=== PATIENT | female | born 1975 | race Caucasian/White ===

== ENCOUNTER 2016-07-11 10:00 | Emergency (ER) | payer OTHER ==
[2016-07-11] MEDS ORDERED: Ondansetron 4 MG/2 ML SDV IVPUSH ONE (10:20)
[2016-07-11] MEDS ORDERED: Sodium Chloride 0.9% 1,000 ML IV ONE (10:20)
[2016-07-11 10:58] LABS: CHLORIDE,CL 107 mmol/L (98-110); SODIUM,NA 137 mmol/L (136-146)
[2016-07-11] MEDS ORDERED: Prochlorperazine 10 MG/2 ML SDV IVPUSH ONE (12:34)
--- NOTE | 2016-07-11 13:31 | CT ---
CT of the abdomen and pelvis without contrast. HISTORY: Pain TECHNIQUE: Axial CT images were obtained of the abdomen and pelvis without contrast. Coronal and sag ittal reconstructions obtained. FINDINGS: The lung bases are clear, no pleural effusion. The liver, spleen, adrenal glands, and pancreas appear unremarkable for noncontrast examination. Cho lecystectomy. There is no bulky retroperitoneal lymphadenopathy. No abdominal ascites. Punctate nonobstructing left renal stones noted. No evidence of obstructive uropathy bilaterally. The large and small bowel are normal in caliber without evidence of obstruction. Appendectomy. There is no bulky pelvic lymphadenopathy. No free fluid. No free air. The urinary bladder appears normal. The visualized osseous structures appear normal. IMPRESSION: 1. No acute findings within the abdomen or pelvis. 2. Punctate nonobstructing left renal stones.
--- NOTE | 2016-07-11 13:38 | EDM.PDOC ---
ED HPI GENERAL MEDICAL PROBLEM - General Chief Complaint: Gastrointestinal Problem Stated Complaint: VOMITTING Time Seen by Provider: 07/11/16 10:20 Source of Information: Reports: Patient History Limitations: Reports: No limitations - History of Present Illness INITIAL COMMENTS - FREE TEXT/NARRATIVE: History of present illness: [21-year-old female coming in complaining of nausea vomiting and diarrhea. She did fairly clinic and they suggested she come here based on her protracted history of C. difficile and complaints of the loose stools patient brings a sample which is very hard round pellets type sample which after discussion she acknowledges inconsistent with her previous bouts of C. difficile. Patient does indicate she has significant amount of abdominal pelvic pain left greater than right] Review of systems: As per history of present illness and below otherwise all systems reviewed and negative. Past medical history: As per history of present illness and as reviewed below otherwise noncontributory. Surgical history: As per history of present illness and as reviewed below otherwise noncontributory. Social history: No reported history of drug or alcohol abuse. Family history: As per history of present illness and as reviewed below otherwise noncontributory. Physical exam: HEENT: Atraumatic, normocephalic, pupils reactive, negative for conjunctival pallor or scleral icterus, mucous membranes moist, throat clear, neck supple, nontender, trachea midline. Lungs: Clear to auscultation, breath sounds equal bilaterally, chest nontender. Heart: S1S2, regular, negative for clicks, rubs, or JVD. Abdomen: Soft, nondistended, diffuse nonspecific tenderness patient will wince below but more in the period him awake all region.. Negative for masses or hepatosplenomegaly. Negative for costovertebral tenderness. Pelvis: Stable nontender. Genitourinary: Deferred. Rectal: Deferred. Extremities: Atraumatic, negative for cords or calf pain. Neurovascular unremarkable. Neuro: Awake, alert, oriented. Cranial nerves II through XII unremarkable. Cerebellum unremarkable. Motor and sensory unremarkable throughout. Exam nonfocal. Diagnostics: [CBC, CMP, CT without,] Therapeutics: [] Impression: [Punctate nonobstructing left renal stone] Plan: [Zofran for nausea] Definitive disposition and diagnosis as appropriate pending reevaluation and review of above. Abdominal Pain Score (Numeric/FACES): 8 - Related Data Allergies Allergy/AdvReac Type Severity Reaction Status Date / Time Penicillins Allergy Rash Verified 07/11/16 10:24 Home Meds: Home Meds ALPRAZolam [Xanax] 1 mg PO DAILY 07/11/16 [History] Citalopram Hydrobromide [Celexa] 20 mg PO DAILY 07/11/16 [History] Cyclobenzaprine [Flexeril] 10 mg PO ASDIRECTED PRN 07/11/16 [History] Esomeprazole [NexIUM] 40 mg PO DAILY 07/11/16 [History] Fluticasone Propionate [Flonase] 1 spray NASBOTH DAILY 07/11/16 [History] Gabapentin [Neurontin] 100 mg PO TID 07/11/16 [History] Ondansetron HCl [Zofran] 8 mg PO TID #30 tablet 07/11/16 [Rx] Promethazine [Phenergan] 25 mg PO DAILY PRN 07/11/16 [History] Zolpidem [Ambien] 10 mg PO DAILY 07/11/16 [History] cloNIDine HCl [Catapres] 0.1 mg PO DAILY 07/11/16 [History] traMADol [Ultram] 50 mg PO Q6HR PRN 07/11/16 [History] traZODone 50 mg PO DAILY 07/11/16 [History] Past Medical History Gastrointestinal History: Reports: GERD Musculoskeletal History: Reports: Back pain, chronic Psychiatric History: Reports: Anxiety, Depression - Infectious Disease History Infectious Disease History: Reports: C-difficile, Chicken pox Social & Family History - Family History Family Medical History: Noncontributory - Tobacco Use Smoking Status *Q: Never Smoker - Recreational Drug Use Recreational Drug Use: No ED ROS GENERAL - Review of Systems Review Of Systems: See Below (History of present illness) ED EXAM, GENERAL - Physical Exam Exam: See Below (See history of present illness) Course - Vital Signs Last Recorded V/S: Last Vital Signs Temp 36.9 C 07/11/16 10:22 Pulse 80 07/11/16 11:41 Resp 16 07/11/16 11:41 BP 112/74 07/11/16 11:41 Pulse Ox 95 07/11/16 11:41 - Orders/Labs/Meds Labs: Laboratory Tests 07/11/16 07/11/16 07/11/16 Range/Units 10:34 10:34 11:40 WBC 7.26 (4.0-11.0) K/uL RBC 4.58 (4.30-5.90) M/uL Hgb 15.3 (12.0-16.0) g/dL Hct 42.4 (36.0-46.0) % MCV 92.6 (80.0-98.0) fL MCH 33.4 H (27.0-32.0) pg MCHC 36.1 (31.0-37.0) g/dL RDW Std Deviation 40.9 (28.0-62.0) fl RDW Coeff of Anai 12 (11.0-15.0) % Plt Count 187 (150-400) K/uL MPV 10.50 (7.40-12.00) fL Neut % (Auto) 63.0 (48.0-80.0) % Lymph % (Auto) 28.7 (16.0-40.0) % Coleman % (Auto) 4.7 (0.0-15.0) % Eos % (Auto) 3.3 (0.0-7.0) % Baso % (Auto) 0.3 (0.0-1.5) % Neut # (Auto) 4.6 (1.4-5.7) K/uL Lymph # (Auto) 2.1 (0.6-2.4) K/uL Coleman # (Auto) 0.3 (0.0-0.8) K/uL Eos # (Auto) 0.2 (0.0-0.7) K/uL Baso # (Auto) 0.0 (0.0-0.1) K/uL Nucleated RBC % 0.0 /100WBC Nucleated RBCs # 0 K/uL Sodium 137 (136-146) mmol/L Potassium 4.0 (3.5-5.1) mmol/L Chloride 107 (98-110) mmol/L Carbon Dioxide 18 L (21-31) mmol/L BUN 13 (6.0-23.0) mg/dL Creatinine 0.8 (0.6-1.5) mg/dL Est Cr Clr Drug Dosing 105.72 mL/min Estimated GFR (MDRD) > 60.0 ml/min Glucose 115 H (60-110) mg/dL Calcium 9.6 (8.8-10.8) mg/dL Total Bilirubin 0.5 (0.1-1.5) mg/dL AST 17 (5-40) IU/L ALT 15 (8-54) IU/L Alkaline Phosphatase 69 (40-150) Total Protein 7.4 (6.0-8.0) g/dL Albumin 4.3 (3.5-5.0) g/dL Globulin 3.1 (2.0-3.5) g/dL Albumin/Globulin Ratio 1.4 (1.3-2.8) Urine Color YELLOW Urine Appearance CLEAR Urine pH 7.0 (5.0-8.0) Ur Specific Paragon <= 1.005 (1.001-1.035) Urine Protein NEGATIVE (NEGATIVE) mg/dL Urine Glucose (UA) NEGATIVE (NEGATIVE) mg/dL Urine Ketones NEGATIVE (NEGATIVE) mg/dL Urine Occult Blood LARGE H (NEGATIVE) Urine Nitrite NEGATIVE (NEGATIVE) Urine Bilirubin NEGATIVE (NEGATIVE) Urine Urobilinogen 0.2 (<2.0) EU/dL Ur Leukocyte Esterase NEGATIVE (NEGATIVE) Urine RBC 0-1 (0-2/HPF) Urine WBC 0-2 (0-5/HPF) Ur Epithelial Cells FEW (NONE-FEW) Amorphous Sediment RARE (NEGATIVE) Urine Bacteria RARE (NEGATIVE) Urine HCG, Qual (NEGATIVE) 07/11/16 Range/Units 11:40 WBC (4.0-11.0) K/uL RBC (4.30-5.90) M/uL Hgb (12.0-16.0) g/dL Hct (36.0-46.0) % MCV (80.0-98.0) fL MCH (27.0-32.0) pg MCHC (31.0-37.0) g/dL RDW Std Deviation (28.0-62.0) fl RDW Coeff of Anai (11.0-15.0) % Plt Count (150-400) K/uL MPV (7.40-12.00) fL Neut % (Auto) (48.0-80.0) % Lymph % (Auto) (16.0-40.0) % Coleman % (Auto) (0.0-15.0) % Eos % (Auto) (0.0-7.0) % Baso % (Auto) (0.0-1.5) % Neut # (Auto) (1.4-5.7) K/uL Lymph # (Auto) (0.6-2.4) K/uL Coleman # (Auto) (0.0-0.8) K/uL Eos # (Auto) (0.0-0.7) K/uL Baso # (Auto) (0.0-0.1) K/uL Nucleated RBC % /100WBC Nucleated RBCs # K/uL Sodium (136-146) mmol/L Potassium (3.5-5.1) mmol/L Chloride (98-110) mmol/L Carbon Dioxide (21-31) mmol/L BUN (6.0-23.0) mg/dL Creatinine (0.6-1.5) mg/dL Est Cr Clr Drug Dosing mL/min Estimated GFR (MDRD) ml/min Glucose (60-110) mg/dL Calcium (8.8-10.8) mg/dL Total Bilirubin (0.1-1.5) mg/dL AST (5-40) IU/L ALT (8-54) IU/L Alkaline Phosphatase (40-150) Total Protein (6.0-8.0) g/dL Albumin (3.5-5.0) g/dL Globulin (2.0-3.5) g/dL Albumin/Globulin Ratio (1.3-2.8) Urine Color Urine Appearance Urine pH (5.0-8.0) Ur Specific Paragon (1.001-1.035) Urine Protein (NEGATIVE) mg/dL Urine Glucose (UA) (NEGATIVE) mg/dL Urine Ketones (NEGATIVE) mg/dL Urine Occult Blood (NEGATIVE) Urine Nitrite (NEGATIVE) Urine Bilirubin (NEGATIVE) Urine Urobilinogen (<2.0) EU/dL Ur Leukocyte Esterase (NEGATIVE) Urine RBC (0-2/HPF) Urine WBC (0-5/HPF) Ur Epithelial Cells (NONE-FEW) Amorphous Sediment (NEGATIVE) Urine Bacteria (NEGATIVE) Urine HCG, Qual NEGATIVE (NEGATIVE) Meds: Medications Discontinued Medications Generic Name Dose Route Start Last Admin Trade Name Freq PRN Reason Stop Dose Admin Sodium Chloride 1,000 mls @ 999 mls/hr 07/11/16 10:20 07/11/16 10:39 Normal Saline IV 07/11/16 11:20 999 mls/hr STAT ONE Administration Ondansetron HCl 8 mg 07/11/16 10:20 07/11/16 10:40 Zofran IVPUSH 07/11/16 10:21 8 mg ONETIME ONE Administration Prochlorperazine Edisylate 10 mg 07/11/16 12:34 07/11/16 12:58 Compazine IVPUSH 07/11/16 12:35 10 mg ONETIME ONE Administration Departure - Departure Time of Disposition: 13:39 Disposition: Home, Self-Care 01 Condition: good Clinical Impression: Kidney stone Instructions: Dehydration, Adult, [id number] Forms: ED Department Discharge Additional Instructions: The following information is given to patients seen in the emergency department who are being discharged to home. This information is to outline your options for follow-up care. We provide all patients seen in our emergency department with a follow-up referral. The need for follow-up, as well as the timing and circumstances, are variable depending upon the specifics of your emergency department visit. If you don't have a primary care physician on staff, we will provide you with a referral. We always advise you to contact your personal physician following an emergency department visit to inform them of the circumstance of the visit and for follow-up with them and/or the need for any referrals to a consulting specialist. The emergency department will also refer you to a specialist when appropriate. This referral assures that you have the opportunity for follow-up care with a specialist. All of these measure are taken in an effort to provide you with optimal care, which includes your follow-up. Under all circumstances we always encourage you to contact your private physician who remains a resource for coordinating your care. When calling for follow-up care, please make the office aware that this follow-up is from your recent emergency room visit. If for any reason you are refused follow-up, please contact the [facility] Emergency Department at and asked to speak to the emergency department charge nurse. Take medication as directed Followup with PCP 1-2 days return ED as needed as discussed
[2016-07-11 14:01] VITALS: BP 128/75
== END 2016-07-11 14:02 | disposition home or self-care (01) ==
LOC: MW.ED 10:00
DX: N20.0 Calculus of kidney (principal); K21.9 Gastro-esophageal reflux disease without esophagitis; F41.9 Anxiety disorder, unspecified; F32.9 Major depressive disorder, single episode, unspecified; Z79.899 Other long term (current) drug therapy; Z88.0 Allergy status to penicillin
CPT/HCPCS: 36415; 74176; 80053; 81001; 81025; 85025; 96361; 96374; 96375; 99284; J0780; J2405; J7040

== ENCOUNTER 2016-07-22 11:11 | Emergency (ER) | payer OTHER ==
--- NOTE | 2016-07-22 11:55 | EDM.PDOC ---
ED HPI GENERAL MEDICAL PROBLEM - General Chief Complaint: Lower Extremity Injury/Pain Stated Complaint: POSSIBLY BROKEN LEG Time Seen by Provider: 07/22/16 11:33 - History of Present Illness INITIAL COMMENTS - FREE TEXT/NARRATIVE: History of present illness: [] Patient recently had surgery on her right extremity or tendon repair and is in a hard boot. She is not wearing this this morning at home and she tried to go up the stairs by hopping her weight on her right extremity and bumped her her left great toe pending it backwards. She complains of toe pain. Review of systems: As per history of present illness and below otherwise all systems reviewed and negative. Past medical history: As per history of present illness and as reviewed below otherwise noncontributory. Surgical history: As per history of present illness and as reviewed below otherwise noncontributory. Social history: No reported history of drug or alcohol abuse. Family history: As per history of present illness and as reviewed below otherwise noncontributory. Physical exam: General: Well developed, well nourished in NAD HEENT: Atraumatic, normocephalic, pupils reactive, negative for conjunctival pallor or scleral icterus, mucous membranes moist, throat clear, neck supple, nontender, trachea midline. Lungs: Clear to auscultation, breath sounds equal bilaterally, chest nontender. Heart: S1S2, regular, negative for clicks, rubs, or JVD. Abdomen: Soft, nondistended, nontender. Negative for masses or hepatosplenomegaly. Negative for costovertebral tenderness. Pelvis: Stable nontender. Genitourinary: Deferred. Rectal: Deferred. Extremities: Atraumatic, negative for cords or calf pain. Neurovascular unremarkable. Neuro: Awake, alert, oriented. Cranial nerves II through XII unremarkable. Cerebellum unremarkable. Motor and sensory unremarkable throughout. Exam nonfocal. Diagnostics: [] X-ray negative for fracture Therapeutics: [] Patient took hydrocodone prior to arrival Impression: []Left great toe sprain Plan: [] Ice, Motrin for pain, agueda tape toe to the second toe for comfort, Definitive disposition and diagnosis as appropriate pending reevaluation and review of above. Left 2-Long toe Pain Score (Numeric/FACES): 8 - Related Data Allergies Allergy/AdvReac Type Severity Reaction Status Date / Time Penicillins Allergy Rash Verified 07/22/16 11:22 Home Meds: Home Meds ALPRAZolam [Xanax] 1 mg PO BEDTIME PRN 07/11/16 [History] Citalopram Hydrobromide [Celexa] 40 mg PO DAILY 07/11/16 [History] Cyclobenzaprine [Flexeril] 10 mg PO ASDIRECTED PRN 07/11/16 [History] Esomeprazole [NexIUM] 40 mg PO DAILY 07/11/16 [History] Fluticasone Propionate [Flonase] 1 spray NASBOTH DAILY 07/11/16 [History] Gabapentin [Neurontin] 100 mg PO TID 07/11/16 [History] Promethazine [Phenergan] 25 mg PO DAILY PRN 07/11/16 [History] Zolpidem [Ambien] 10 mg PO BEDTIME 07/11/16 [History] cloNIDine HCl [Catapres] 0.1 mg PO BID 07/11/16 [History] traMADol [Ultram] 50 mg PO QID PRN 07/11/16 [History] traZODone 50 mg PO BEDTIME 07/11/16 [History] Bacillus Coagulans/Inulin [Probiotic Formula Capsule] 1 tab PO DAILY 07/22/16 [ History] Cholecalciferol (Vitamin D3) [Vitamin D3] 10,000 unit PO ASDIRECTED 07/22/16 [ History] Docusate Sodium 100 mg PO DAILY 07/22/16 [History] Hydrocodone/Acetaminophen [Needham 5-325] 5 - 325 mg PO Q4HR 07/22/16 [History] Melatonin 10 mg PO BEDTIME PRN 07/22/16 [History] Norethindrone [Sheila] 0.35 mg PO DAILY 07/22/16 [History] Ondansetron HCl [Zofran] 8 mg PO TID PRN 07/22/16 [History] Rizatriptan Benzoate [Maxalt] 10 mg PO DAILY PRN 07/22/16 [History] diphenhydrAMINE HCl [Benadryl] 25 mg PO TID PRN 07/22/16 [History] Past Medical History HEENT History: Reports: Impaired Vision Other HEENT History: wears glasses Gastrointestinal History: Reports: GERD Other OB/BYN History: ovarian cyst surgery, right Musculoskeletal History: Reports: Back Pain, Chronic Psychiatric History: Reports: Anxiety, Depression - Infectious Disease History Infectious Disease History: Reports: Chicken Pox - Past Surgical History GI Surgical History: Reports: Appendectomy, Cholecystectomy, Colostomy Social & Family History - Family History Family Medical History: Noncontributory - Tobacco Use Smoking Status *Q: Never Smoker Second Hand Smoke Exposure: No - Caffeine Use Caffeine Use: Reports: None - Recreational Drug Use Recreational Drug Use: No Review of Systems - Review of Systems Review Of Systems: See Below (See history of present illness) Trauma Exam - Physical Exam Exam: See Below (History of present illness) Course - Vital Signs Last Recorded V/S: Last Vital Signs Temp 36.3 C 07/22/16 11:17 Pulse 113 H 07/22/16 11:17 Resp 19 07/22/16 11:17 BP 100/67 07/22/16 11:17 Pulse Ox 95 07/22/16 11:17 - Orders/Labs/Meds Orders: Active Orders 24 hr Category Date Time Status Toes Great Toe Lt TA [CR] Stat Exams 07/22/16 11:39 Taken Departure - Departure Time of Disposition: 12:16 Disposition: Home, Self-Care 01 Condition: good Clinical Impression: Sprain of left great toe Qualifiers: Encounter type: initial encounter Qualified Code(s): S93.502A - Unspecified sprain of left great toe, initial encounter - Discharge Information Forms: ED Department Discharge Additional Instructions: The following information is given to patients seen in the emergency department who are being discharged to home. This information is to outline your options for follow-up care. We provide all patients seen in our emergency department with a follow-up referral. The need for follow-up, as well as the timing and circumstances, are variable depending upon the specifics of your emergency department visit. If you don't have a primary care physician on staff, we will provide you with a referral. We always advise you to contact your personal physician following an emergency department visit to inform them of the circumstance of the visit and for follow-up with them and/or the need for any referrals to a consulting specialist. The emergency department will also refer you to a specialist when appropriate. This referral assures that you have the opportunity for follow-up care with a specialist. All of these measure are taken in an effort to provide you with optimal care, which includes your follow-up. Under all circumstances we always encourage you to contact your private physician who remains a resource for coordinating your care. When calling for follow-up care, please make the office aware that this follow-up is from your recent emergency room visit. If for any reason you are refused follow-up, please contact the [facility] Emergency Department at and asked to speak to the emergency department charge nurse. jaiden Castorena buddy tape as needed followup with PMD as needed [facility] [address] [place] [id number] - My Orders Last 24 Hours: My Active Orders 07/22/16 11:39 Toes Great Toe Lt TA [CR] Stat - Assessment/Plan Last 24 Hours: My Active Orders 07/22/16 11:39 Toes Great Toe Lt TA [CR] Stat
[2016-07-22 12:50] VITALS: BP 106/69
--- NOTE | 2016-07-23 17:40 | CR ---
EXAM DATE: 07/22/16 PATIENT'S AGE: 41 Patient: CARISSA BUCKLEY Facility: [place], [place] Site . Site : [id number] Study: XRay Extremity Left [id number]/[id number] 11:55:34 AM Ordering Physician: Robin Ash Final Report: HISTORY: Left foot great toe injury. TECHNIQUE: Three views of the great toe of the left foot. FINDINGS: There is no acute fracture. Slight valgus alignment of the 1st metatarsophalangeal joint. No significant joint space narrowing. Possible erosion involving the dorsal aspect of the 1st metatarsal head seen on the lateral film. No radiopaque foreign body or abnormal soft tissue gas. IMPRESSION: 1. No fracture. 2. Slight valgus alignment of 1st metatarsophalangeal joint. 3. Possible erosion involving the dorsal aspect of the 1st metatarsal head. Dictated by Vicente Miller MD @ 07/22/2016 12:12:14 PM Dictated by: Vicente Miller MD @ 07/22/2016 12:12:21 (Electronic Signature) Report Signed by Proxy. [facility] UNIVERSITY HOSPITALRicarda
== END 2016-07-22 12:35 | disposition home or self-care (01) ==
LOC: MW.ED 11:11
DX: S93.502A Unspecified sprain of left great toe, initial encounter (principal); K21.9 Gastro-esophageal reflux disease without esophagitis; F41.9 Anxiety disorder, unspecified; F32.9 Major depressive disorder, single episode, unspecified; Z90.49 Acquired absence of other specified parts of digestive tract; Z79.899 Other long term (current) drug therapy; Z88.0 Allergy status to penicillin; Z98.890 Other specified postprocedural states; X50.1XXA Overexertion from prolonged static or awkward postures, initial encounter; Y92.009 Unspecified place in unspecified non-institutional (private) residence as the place of occurrence of the external cause
CPT/HCPCS: 73660-26-TA; 73660-TA; 99282; 99283

== ENCOUNTER → 2016-07-24 | Outpatient (CLI) | payer OTHER | LOC: MW.CHENT 16:24 | PROVIDERS: ATTEND Otolaryngology | DX: R06.83 Snoring (principal) | CPT/HCPCS: 36415; 86003 ==

== ENCOUNTER 2017-01-16 22:06 | Emergency (ER) | payer OTHER ==
--- NOTE | 2017-01-16 22:21 | EDM.PDOC ---
ED HPI GENERAL MEDICAL PROBLEM - General Chief Complaint: Respiratory Problem Stated Complaint: COLD Time Seen by Provider: 01/16/17 22:20 - History of Present Illness INITIAL COMMENTS - FREE TEXT/NARRATIVE: HISTORY AND PHYSICAL: History of present illness: Patient is 41-year-old female presents with concern of cough and cold symptoms for 2 weeks she was recently prescribed doxycycline she's had no improvement she denies shortness of breath nausea vomiting fever chills or other complaints Review of systems: As per history of present illness and below otherwise all systems reviewed and negative. Past medical history: As per history of present illness and as reviewed below otherwise noncontributory. Surgical history: As per history of present illness and as reviewed below otherwise noncontributory. Social history: No reported history of drug or alcohol abuse. Family history: As per history of present illness and as reviewed below otherwise noncontributory. Physical exam: HEENT: Atraumatic, normocephalic, pupils reactive, negative for conjunctival pallor or scleral icterus, mucous membranes moist, throat clear, neck supple, nontender, trachea midline. Lungs: Clear to auscultation, breath sounds equal bilaterally, chest nontender. Heart: S1S2, regular, negative for clicks, rubs, or JVD. Abdomen: Soft, nondistended, nontender. Negative for masses or hepatosplenomegaly. Negative for costovertebral tenderness. Pelvis: Stable nontender. Genitourinary: Deferred. Rectal: Deferred. Extremities: Atraumatic, negative for cords or calf pain. Neurovascular unremarkable. Neuro: Awake, alert, oriented. Cranial nerves II through XII unremarkable. Cerebellum unremarkable. Motor and sensory unremarkable throughout. Exam nonfocal. Diagnostics: Chest x-ray influenza screen Therapeutics: Albuterol ipratropium nebulizer Impression: #1 pneumonitis Definitive disposition and diagnosis as appropriate pending reevaluation and review of above. Chest Pain Score (Numeric/FACES): 5 Headache Pain Score (Numeric/FACES): 8 - Related Data Allergies Allergy/AdvReac Type Severity Reaction Status Date / Time Penicillins Allergy Rash Verified 01/16/17 22:14 Home Meds: Home Meds ALPRAZolam [Xanax] 1 mg PO BEDTIME PRN 07/11/16 [History] Citalopram Hydrobromide [Celexa] 40 mg PO DAILY 07/11/16 [History] Cyclobenzaprine [Flexeril] 10 mg PO ASDIRECTED PRN 07/11/16 [History] Esomeprazole [NexIUM] 40 mg PO DAILY 07/11/16 [History] Fluticasone Propionate [Flonase] 1 spray NASBOTH DAILY 07/11/16 [History] Gabapentin [Neurontin] 100 mg PO TID 07/11/16 [History] Promethazine [Phenergan] 25 mg PO DAILY PRN 07/11/16 [History] Zolpidem [Ambien] 10 mg PO BEDTIME 07/11/16 [History] cloNIDine HCl [Catapres] 0.1 mg PO BID 07/11/16 [History] traMADol [Ultram] 50 mg PO QID PRN 07/11/16 [History] traZODone 50 mg PO BEDTIME 07/11/16 [History] Bacillus Coagulans/Inulin [Probiotic Formula Capsule] 1 tab PO DAILY 07/22/16 [ History] Cholecalciferol (Vitamin D3) [Vitamin D3] 10,000 unit PO ASDIRECTED 07/22/16 [ History] Docusate Sodium 100 mg PO DAILY 07/22/16 [History] Hydrocodone/Acetaminophen [[place] 5-325] 5 - 325 mg PO Q4HR 07/22/16 [History] Melatonin 10 mg PO BEDTIME PRN 07/22/16 [History] Norethindrone [Sheila] 0.35 mg PO DAILY 07/22/16 [History] Ondansetron HCl [Zofran] 8 mg PO TID PRN 07/22/16 [History] Rizatriptan Benzoate [Maxalt] 10 mg PO DAILY PRN 07/22/16 [History] diphenhydrAMINE HCl [Benadryl] 25 mg PO TID PRN 07/22/16 [History] Past Medical History HEENT History: Reports: Impaired Vision Other HEENT History: wears glasses Gastrointestinal History: Reports: GERD Other OB/BYN History: ovarian cyst surgery, right Musculoskeletal History: Reports: Back Pain, Chronic Neurological History: Reports: Vertigo Psychiatric History: Reports: Anxiety, Depression Hematologic History: Reports: Other (See Below) Other Hematologic History: easy bruising/bleeding - Infectious Disease History Infectious Disease History: Reports: Chicken Pox - Past Surgical History GI Surgical History: Reports: Appendectomy, Cholecystectomy, Colonoscopy Female Surgical History: Reports: Other (See Below) Other Female Surgeries/Procedures: ruptured ovarian cyst Musculoskeletal Surgical History: Reports: Other (See Below) Other Musculoskeletal Surgeries/Procedures:: R foot peroneus longus tendon repair Social & Family History - Family History Family Medical History: Noncontributory - Tobacco Use Smoking Status *Q: Never Smoker Second Hand Smoke Exposure: No - Caffeine Use Caffeine Use: Reports: None - Recreational Drug Use Recreational Drug Use: No ED ROS GENERAL - Review of Systems Review Of Systems: ROS reveals no pertinent complaints other than HPI. ED EXAM, GENERAL - Physical Exam Exam: See Below (The dictation) Course - Vital Signs Last Recorded V/S: Last Vital Signs Temp 36.4 C 01/16/17 22:08 Pulse 108 H 01/16/17 22:08 Resp 20 01/16/17 22:08 BP 124/87 01/16/17 22:08 Pulse Ox 98 01/16/17 22:08 - Orders/Labs/Meds Orders: Active Orders 24 hr Category Date Time Status RT Aerosol Therapy [RC] ASDIRECTED Care 01/16/17 22:27 Active Chest 2V [CR] Stat Exams 01/16/17 22:20 Taken Meds: Medications Discontinued Medications Generic Name Dose Route Start Last Admin Trade Name Hua PRN Reason Stop Dose Admin Acetaminophen 1,000 mg 01/16/17 22:47 01/16/17 22:54 Tylenol PO 01/16/17 22:48 1,000 mg NOW ONE Administration Albuterol/Ipratropium 3 ml 01/16/17 22:27 01/16/17 22:36 Duoneb 3.0-0.5 Mg/3 Ml NEB 01/16/17 22:28 3 ml ONETIME ONE Administration Departure - Departure Time of Disposition: 23:04 Disposition: Home, Self-Care 01 Condition: Good Clinical Impression: Pneumonitis - Discharge Information Referrals: PCP,None [Primary Care Provider] - Forms: ED Department Discharge Additional Instructions: The following information is given to patients seen in the emergency department who are being discharged to home. This information is to outline your options for follow-up care. We provide all patients seen in our emergency department with a follow-up referral. The need for follow-up, as well as the timing and circumstances, are variable depending upon the specifics of your emergency department visit. If you don't have a primary care physician on staff, we will provide you with a referral. We always advise you to contact your personal physician following an emergency department visit to inform them of the circumstance of the visit and for follow-up with them and/or the need for any referrals to a consulting specialist. The emergency department will also refer you to a specialist when appropriate. This referral assures that you have the opportunity for followup care with a specialist. All of these measure are taken in an effort to provide you with optimal care, which includes your followup. Under all circumstances we always encourage you to contact your private physician who remains a resource for coordinating your care. When calling for followup care, please make the office aware that this follow-up is from your recent emergency room visit. If for any reason you are refused follow-up, please contact the [facility] emergency department at and asked to speak to the emergency department charge nurse. Albuterol as prescribed continue current antibiotics follow primary medical doctor 1-2 days [id number] cough medicine as discussed return as needed as discussed - My Orders Last 24 Hours: My Active Orders 01/16/17 22:20 Chest 2V [CR] Stat 01/16/17 22:27 RT Aerosol Therapy [RC] ASDIRECTED - Assessment/Plan Last 24 Hours: My Active Orders 01/16/17 22:20 Chest 2V [CR] Stat 01/16/17 22:27 RT Aerosol Therapy [RC] ASDIRECTED
[2017-01-16] MEDS ORDERED: Albuterol/Ipratropium 3.0-0.5 MG/3 ML Neb Soln NEB ONE (22:27)
[2017-01-16] MEDS ORDERED: Acetaminophen 325 MG Tab PO ONE (22:47)
[2017-01-17 01:55] VITALS: BP 101/71
--- NOTE | 2017-01-17 15:17 | CR ---
EXAM DATE: 01/16/17 PATIENT'S AGE: 41 Patient: CARISSA BUCKLEY Facility: [place], [place] Site . Site : 1975 Study: XRay Chest [id number] 10:33:43 PM Ordering Physician: Lucas Chaudhry Final Report: INDICATIONS: Cough. Wheezing x2 weeks. TECHNIQUE: Chest 2 view. COMPARISON: None FINDINGS: No pneumothorax, pleural effusion or airspace consolidation. Cardiac and mediastinal contours are within normal limits. Upper abdomen and osseous structures show no acute abnormality. IMPRESSION: No evidence of acute cardiopulmonary disease. Dictated by Varun Angeles MD @ 01/16/2017 10:44:00 PM Dictated by: Varun Angeles MD @ 01/16/2017 22:44:10 (Electronic Signature) Report Signed by Proxy. [facility] HOSPITALRicarda
== END 2017-01-16 23:11 | disposition home or self-care (01) ==
LOC: MW.ED 22:06
DX: J18.9 Pneumonia, unspecified organism (principal); K21.9 Gastro-esophageal reflux disease without esophagitis; F32.9 Major depressive disorder, single episode, unspecified; Z90.49 Acquired absence of other specified parts of digestive tract; Z88.0 Allergy status to penicillin
CPT/HCPCS: 71020; 87804; 99283; A9270; 99282

== ENCOUNTER 2017-02-21 06:22 | Day surgery (SDC) | payer OTHER ==
[2017-02-20 15:55] LABS: CHLORIDE,CL 108 mmol/L (98-110); SODIUM,NA 140 mmol/L (136-146)
[~2017-02-21 06:22] MED LIST: Sodium Chloride 0.9% 10 ML Syringe FLUSH PRN; Sodium Chloride 0.9% 2.5 ML Syringe FLUSH PRN; ceFAZolin 2 GM in Premix Bag 1 BAG IV ONE
[2017-02-21] MEDS: Lactated Ringers 1,000 ML IV SCH ×2 (06:41→11:45)
[2017-02-21] MEDS ORDERED: Scopolamine 1.5 MG Transdermal Patch TRDERM PRN (07:11)
--- NOTE | 2017-02-21 07:16 | PCM.PREANE ---
Preanesthetic Assessment - Anesthesia/Transfusion/Family Hx Anesthesia History: Prior Anesthesia Without Reaction Family History of Anesthesia Reaction: No Transfusion History: No Prior Transfusion(s) Intubation History: Unknown - Review of Systems General: No Symptoms Pulmonary: No Symptoms Cardiovascular: No Symptoms Gastrointestinal: No Symptoms Neurological: No Symptoms Other: Reports: None - Physical Assessment O2 Sat by Pulse Oximetry: 97 Respiratory Rate: 16 Vital Signs: Last Vital Signs Temp 36.1 C 02/21/17 06:31 Pulse 89 02/21/17 06:31 Resp 16 02/21/17 06:31 BP 116/70 02/21/17 06:31 Pulse Ox 97 02/21/17 06:31 Height: 1.78 m Weight: 107.501 kg ASA Class: 2 Mental Status: Alert & Oriented x3 Airway Class: Mallampati = 2 Dentition: Reports: Normal Dentition Thyro-Mental Finger Breadths: 3 Mouth Opening Finger Breadths: 3 ROM/Head Extension: Full Lungs: Clear to Auscultation, Normal Respiratory Effort Cardiovascular: Regular Rate, Regular Rhythm - Lab Values: Laboratory Last Values WBC 5.45 K/uL (4.0-11.0) 02/20/17 14:49 RBC 3.89 M/uL (4.30-5.90) L 02/20/17 14:49 Hgb 13.2 g/dL (12.0-16.0) 02/20/17 14:49 Hct 36.8 % (36.0-46.0) 02/20/17 14:49 MCV 94.6 fL (80.0-98.0) 02/20/17 14:49 MCH 33.9 pg (27.0-32.0) H 02/20/17 14:49 MCHC 35.9 g/dL (31.0-37.0) 02/20/17 14:49 RDW Std Deviation 44.4 fl (28.0-62.0) 02/20/17 14:49 RDW Coeff of Anai 13 % (11.0-15.0) 02/20/17 14:49 Plt Count 179 K/uL (150-400) 02/20/17 14:49 MPV 10.10 fL (7.40-12.00) 02/20/17 14:49 Nucleated RBC % 0.0 /100WBC 02/20/17 14:49 Nucleated RBCs # 0 K/uL 02/20/17 14:49 Sodium 140 mmol/L (136-146) 02/20/17 14:49 Potassium 4.1 mmol/L (3.5-5.1) 02/20/17 14:49 Chloride 108 mmol/L (98-110) 02/20/17 14:49 Carbon Dioxide 25 mmol/L (21-31) 02/20/17 14:49 BUN 16 mg/dL (6.0-23.0) 02/20/17 14:49 Creatinine 0.7 mg/dL (0.6-1.5) 02/20/17 14:49 Est Cr Clr Drug Dosing 112.06 mL/min 02/20/17 14:49 Estimated GFR (MDRD) > 60.0 ml/min 02/20/17 14:49 Glucose 111 mg/dL (60-110) H 02/20/17 14:49 Calcium 9.0 mg/dL (8.8-10.8) 02/20/17 14:49 HCG, Qual NEGATIVE (NEG) 02/20/17 14:49 Blood Type B NEGATIVE 02/20/17 14:49 Antibody Screen NEGATIVE 02/20/17 14:49 - Allergies Allergies/Adverse Reactions: Allergies Allergy/AdvReac Type Severity Reaction Status Date / Time Penicillins Allergy Rash Verified 02/21/17 06:33 - Blood Blood Available: No - Anesthesia Plan Pre-Op Medication Ordered: None - Acknowledgements Anesthesia Type Planned: General Anesthesia Pt an Appropriate Candidate for the Planned Anesthesia: Yes Alternatives and Risks of Anesthesia Discussed w Pt/Guardian: Yes Pt/Guardian Understands and Agrees with Anesthesia Plan: Yes PreAnesthesia Questionnaire HEENT History: Reports: Impaired Vision, Other (See Below) Other HEENT History: wears glasses/contacts Respiratory History: Reports: Bronchitis, Recurrent Gastrointestinal History: Reports: GERD, Other (See Below) Other Gastrointestinal History: hx C-diff in 2014, h/o gastric ulcer Genitourinary History: Reports: Renal Calculus 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: Reports: Dysfunctional Uterine Bleeding, Other (See Below) Other OB/BYN History: ovarian cyst surgery, right Musculoskeletal History: Reports: Arthritis, Back Pain, Chronic Neurological History: Reports: Migraines, Vertigo (paroxismal positional vertigo ) Psychiatric History: Reports: Anxiety, Depression, Panic Attack Endocrine/Metabolic History: Reports: Obesity/BMI 30+ Hematologic History: Reports: None - Infectious Disease History Infectious Disease History: Reports: Chicken Pox - Past Surgical History Head Surgeries/Procedures: Reports: None HEENT Surgical History: Reports: Naso-Sinus Surgery GI Surgical History: Reports: Appendectomy, Cholecystectomy, Colonoscopy Female Surgical History: Reports: Other (See Below) Other Female Surgeries/Procedures: laparotomy for ruptured ovarian cyst Endocrine Surgical History: Reports: None Neurological Surgical History: Reports: None Musculoskeletal Surgical History: Reports: Other (See Below) Other Musculoskeletal Surgeries/Procedures:: R foot peroneus longus tendon repair - SUBSTANCE USE Smoking Status *Q: Former Smoker Tobacco Use Within Last Twelve Months: No Second Hand Smoke Exposure: No Recreational Drug Use History: No - HOME MEDS Home Medications: Home Meds ALPRAZolam [Xanax] 1 mg PO ASDIRECTED PRN 07/11/16 [History] Gabapentin [Neurontin] 100 mg PO BEDTIME 07/11/16 [History] Promethazine [Phenergan] 25 mg PO DAILY PRN 07/11/16 [History] Zolpidem [Ambien] 10 mg PO BEDTIME PRN 07/11/16 [History] cloNIDine HCl [Catapres] 0.1 mg PO BEDTIME 07/11/16 [History] Rizatriptan Benzoate [Maxalt] 10 mg PO DAILY PRN 07/22/16 [History] Albuterol Sulfate [Proair Hfa] 1 - 2 puff INH ASDIRECTED PRN 02/19/17 [History] Desvenlafaxine Succinate [Desvenlafaxine Succinate ER] 100 mg PO DAILY 02/19/17 [History] Esomeprazole [NexIUM] 40 mg PO DAILY 02/19/17 [History] Fluticasone Propionate [Flovent Hfa] 2 puff INH BID PRN 02/19/17 [History] traZODone HCl [Trazodone HCl] 1 - 2 tab PO BEDTIME 02/19/17 [History] - CURRENT (IN HOUSE) MEDS Current Meds: Current Medications Lactated Ringer's (Ringers, Lactated) 1,000 mls @ 125 mls/hr IV ASDIRECTED CARI Last Admin: 02/21/17 06:41 Dose: 125 mls/hr Sodium Chloride (Saline Flush) 10 ml FLUSH ASDIRECTED PRN PRN Reason: Keep Vein Open Sodium Chloride (Saline Flush) 2.5 ml FLUSH ASDIRECTED PRN PRN Reason: Keep Vein Open Discontinued Medications Cefazolin Sodium/Dextrose 2 gm (/ Premix) 50 mls @ 100 mls/hr IV ONETIME ONE Stop: 02/20/17 10:27
[2017-02-21] MEDS ORDERED: Fluorescein 5 ML Vial ONE (07:24)
[2017-02-21] MEDS ORDERED: Midazolam 1 MG/ML 2 ML SDV ONE (07:26)
[2017-02-21] MEDS ORDERED: HYDROmorphone 2 MG/ML Syringe ONE (07:26)
[2017-02-21] MEDS ORDERED: Ondansetron 4 MG/2 ML SDV ONE (07:26)
[2017-02-21] MEDS ORDERED: Rocuronium 10 MG/ML 10 ML Syringe ONE (07:26)
[2017-02-21] MEDS ORDERED: Lidocaine 2% 5 ML SDV ONE (07:26)
[2017-02-21] MEDS ORDERED: Propofol 200 MG/20 ML SDV ONE (07:26)
[2017-02-21] MEDS ORDERED: fentaNYL 250 MCG/5 ML SDV ONE (07:26)
[2017-02-21] MEDS ORDERED: Dexamethasone 4 MG/ML 5 ML MDV ONE (08:21)
[2017-02-21] MEDS ORDERED: diphenhydrAMINE 50 MG/ML SDV ONE (08:21)
[2017-02-21] MEDS ORDERED: Ondansetron 4 MG/2 ML SDV IVPUSH PRN (09:16)
[2017-02-21] MEDS ORDERED: Ketorolac 30 MG/ML SDV IVPUSH ONE (09:16)
[2017-02-21] MEDS ORDERED: Promethazine 25 MG/ML SDV IM PRN (09:16)
[2017-02-21] MEDS ORDERED: Morphine 4 MG/ML Syringe IVPUSH PRN (09:16)
[2017-02-21] MEDS ORDERED: Ketorolac 30 MG/ML SDV ONE (09:16)
[2017-02-21] MEDS ORDERED: Morphine 2 MG/ML Syringe IVPUSH PRN (09:16)
[2017-02-21] MEDS ORDERED: Acetaminophen/oxyCODONE 325-5 MG Tab PO PRN (09:16)
--- NOTE | 2017-02-21 09:21 | PCM.OPNOTE ---
- General Post-Op/Procedure Note Date of Surgery/Procedure: 02/21/17 Operative Procedure(s): TVH,RSO,Lsalpengectomy and cystoscopy. Pre Op Diagnosis: bleeding Post-Op Diagnosis: Same Anesthesia Technique: General ET Tube Primary Surgeon: Quincy Leong Glass Engraver: Jenny Kang EBL in mLs: 125 Complications: None Condition: Good
--- NOTE | 2017-02-21 09:56 | OR ---
SURGEON: Quincy Leong MD DATE OF PROCEDURE: PREOPERATIVE DIAGNOSIS: Menometrorrhagia. POSTOPERATIVE DIAGNOSIS: Menometrorrhagia. OPERATION PERFORMED: Total vaginal hysterectomy, right salpingo-oophorectomy, left salpingectomy preserving the left ovary and cystoscopy. BLOWER AND COMPRESSOR ASSEMBLER: NOLAN Hamilton ANESTHESIA: General endotracheal intubation, Koki Sampson and Dr. Winn. ESTIMATED BLOOD LOSS: About 100 mL. COMPLICATIONS: None. FINDINGS: Uterus about 8-week size. Both ovary are essentially is normal. INDICATION FOR SURGERY: [place] refer to the admit note. PROCEDURE IN DETAIL: The patient was brought to the OR, properly identified, and after adequate level of general anesthesia, the patient was placed in lithotomy position, prepped and draped in sterile fashion as usual. A short weighted speculum was placed in vagina and straight catheter was used to empty the bladder. Then, single-tooth tenaculum was applied to the cervix and the cervix was pulled with due amount of tension and then using electrocautery, circular incision in the vaginal mucosa around the cervix was done. The posterior cul-de-sac was entered posteriorly and the vagina and the peritoneum tacked posteriorly with 2-0 Vicryl pop-off and held for further identification. The short weighted speculum replaced with an extended long weighted speculum and then the uterosacral ligament identified from both sides, clamped with a curved Zeppelin, transected, and suture ligated with 2-0 Vicryl pop-off in a Hilario fashion held for further identification. The same thing was done with the cardinal ligament on both sides. Next, the cervicovesical space was entered anteriorly and the bladder retracted completely away from the operative field and the anterior cul-de-sac was entered. The broad ligament clamped with curved zeppelin on both sides, transected, and suture ligated with 2-0 Vicryl pop-off and then the uterus was delivered posteriorly. A 90-degree zeppelin clamp applied to the to right side and the tubes and ovary included with the specimen on the right side and on the left side the ovary was preserved, but the left fallopian tube was included with the specimen. The superior pedicle free tied 3 times on both sides and then an inspection of the operative field showed no oozing, no bleeding. The uterosacral ligament and cardinal ligament anchored to the vagina at 3 and 9 o'clock for added vaginal support and we proceeded to close the vaginal cuff with 2-0 Vicryl interrupted [id number] suture. While we were doing this, we asked the anesthesia people to give the patient 5 mL of fluorescein and after closing the vaginal cuff, cystoscopy performed. The bladder was intact. Both ureteric orifices were seen with the dye coming from both of them, thus the patency of both ureters verified. Satisfied with these findings, the procedure ended. The instrument and sponge count were correct. The patient tolerated the procedure well, went to recovery room in stable general condition. KIANNA PAT /[id number]
[2017-02-21] MEDS: fentaNYL 100 MCG/2 ML SDV IVPUSH PRN ×4 (09:58→10:20)
--- NOTE | 2017-02-21 10:22 | PCM.POSTAN ---
POST ANESTHESIA ASSESSMENT - MENTAL STATUS Mental Status: Alert, Oriented - RESPIRATORY Respiratory Status: Respiratory Rate WNL, Airway Patent, O2 Saturation Stable - CARDIOVASCULAR CV Status: Pulse Rate WNL, Blood Pressure Stable - GASTROINTESTINAL GI Status: No Symptoms - PAIN Pain Score: 5 - POST OP HYDRATION Hydration Status: Adequate & Stable - OBSERVATIONS Free Text/Narrative:: no anesthesia problems
[2017-02-21] MEDS ORDERED: Acetaminophen 500 MG Tab PO PRN (13:29)
[2017-02-21] MEDS: Ketorolac 30 MG/ML SDV IVPUSH PRN (15:16)
[2017-02-21] MEDS: Acetaminophen/oxyCODONE 325-5 MG Tab PO PRN (19:15)
[2017-02-22] MEDS: Acetaminophen/oxyCODONE 325-5 MG Tab PO PRN (03:38)
[2017-02-22 05:20] LABS: CHLORIDE,CL 110 mmol/L (98-110); SODIUM,NA 141 mmol/L (136-146)
[2017-02-22] MEDS: Ketorolac 30 MG/ML SDV IVPUSH PRN (08:15)
--- NOTE | 2017-02-22 08:41 | PCM.SURGPN ---
- General Info Date of Service: 02/22/17 POD#: 1 Functional Status: Reports: Pain Controlled - Review of Systems General: Reports: No Symptoms HEENT: Reports: No Symptoms Pulmonary: Reports: No Symptoms Cardiovascular: Reports: No Symptoms Gastrointestinal: Reports: No Symptoms Genitourinary: Reports: No Symptoms Musculoskeletal: Reports: No Symptoms Skin: Reports: No Symptoms Neurological: Reports: No Symptoms Psychiatric: Reports: No Symptoms - Patient Data Vitals - Most Recent: Last Vital Signs Temp 37.2 C 02/22/17 05:30 Pulse 80 02/22/17 05:30 Resp 12 02/22/17 05:30 BP 113/63 02/22/17 05:30 Pulse Ox 95 02/22/17 05:30 Weight - Most Recent: 107.501 kg I&O - Last 24 Hours: Intake & Output 02/21/17 02/22/17 02/22/17 22:59 06:59 14:59 Output Total 2000 1000 Balance -2000 -1000 Lab Results Last 24 Hrs: Laboratory Results - last 24 hr 02/22/17 02/22/17 Range/Units 04:58 04:58 WBC 8.27 (4.0-11.0) K/uL RBC 3.56 L (4.30-5.90) M/uL Hgb 12.0 (12.0-16.0) g/dL Hct 33.9 L (36.0-46.0) % MCV 95.2 (80.0-98.0) fL MCH 33.7 H (27.0-32.0) pg MCHC 35.4 (31.0-37.0) g/dL RDW Std Deviation 45.0 (28.0-62.0) fl RDW Coeff of Anai 13 (11.0-15.0) % Plt Count 169 (150-400) K/uL MPV 10.10 (7.40-12.00) fL Neut % (Auto) 72.6 (48.0-80.0) % Lymph % (Auto) 18.9 (16.0-40.0) % [place] % (Auto) 8.5 (0.0-15.0) % Eos % (Auto) 0.0 (0.0-7.0) % Baso % (Auto) 0.0 (0.0-1.5) % Neut # (Auto) 6.0 H (1.4-5.7) K/uL Lymph # (Auto) 1.6 (0.6-2.4) K/uL [place] # (Auto) 0.7 (0.0-0.8) K/uL Eos # (Auto) 0.0 (0.0-0.7) K/uL Baso # (Auto) 0.0 (0.0-0.1) K/uL Nucleated RBC % 0.0 /100WBC Nucleated RBCs # 0 K/uL Sodium 141 (136-146) mmol/L Potassium 3.5 (3.5-5.1) mmol/L Chloride 110 (98-110) mmol/L Carbon Dioxide 24 (21-31) mmol/L BUN 7 (6.0-23.0) mg/dL Creatinine 0.7 (0.6-1.5) mg/dL Est Cr Clr Drug Dosing 112.06 mL/min Estimated GFR (MDRD) > 60.0 ml/min Glucose 100 (60-110) mg/dL Calcium 8.0 L (8.8-10.8) mg/dL Med Orders - Current: Current Medications Acetaminophen (Tylenol Extra Strength) 1,000 mg PO Q6H PRN PRN Reason: Pain Last Admin: 02/21/17 13:39 Dose: 1,000 mg Fentanyl (Sublimaze) 50 mcg IVPUSH .Q5MIN PRN PRN Reason: Pain Last Admin: 02/21/17 10:20 Dose: 50 mcg Lactated Ringer's (Ringers, Lactated) 1,000 mls @ 125 mls/hr IV ASDIRECTED [facility] Last Admin: 02/21/17 11:45 Dose: 125 mls/hr Ketorolac Tromethamine (Toradol) 30 mg IVPUSH Q6H PRN PRN Reason: Pain (severe 7-10) Stop: 02/26/17 15:31 Last Admin: 02/22/17 08:15 Dose: 30 mg Morphine Sulfate (Morphine) 2 mg IVPUSH Q2H PRN PRN Reason: Pain (severe 7-10) Morphine Sulfate (Morphine) 4 mg IVPUSH Q2H PRN PRN Reason: Pain (severe 7-10) Ondansetron HCl (Zofran) 4 mg IVPUSH Q6H PRN PRN Reason: Nausea/Vomiting Oxycodone/Acetaminophen (Percocet 325-5 Mg) 1 tab PO Q4H PRN PRN Reason: Pain (moderate 4-6) Last Admin: 02/22/17 03:38 Dose: 1 tab Oxycodone/Acetaminophen (Percocet 325-5 Mg) 2 tab PO Q4H PRN PRN Reason: Pain (moderate 4-6) Promethazine HCl (Phenergan) 25 mg IM Q6H PRN PRN Reason: Nausea/Vomiting Scopolamine (Transderm-Scop) 1.5 mg TRDERM Q72H PRN PRN Reason: Nausea Last Admin: 02/21/17 07:54 Dose: 1.5 mg Sodium Chloride (Saline Flush) 10 ml FLUSH ASDIRECTED PRN PRN Reason: Keep Vein Open Last Admin: 02/21/17 17:03 Dose: 10 ml Sodium Chloride (Saline Flush) 2.5 ml FLUSH ASDIRECTED PRN PRN Reason: Keep Vein Open Discontinued Medications Dexamethasone (Dexamethasone) Confirm Administered Dose 20 mg .ROUTE .STK-MED ONE Stop: 02/21/17 08:22 Diphenhydramine HCl (Benadryl) Confirm Administered Dose 50 mg .ROUTE .STK-MED ONE Stop: 02/21/17 08:22 Fentanyl (Sublimaze) Confirm Administered Dose 250 mcg .ROUTE .STK-MED ONE Stop: 02/21/17 07:27 Fluorescein Sodium (Ak-Fluor) Confirm Administered Dose 5 ml .ROUTE .STK-MED ONE Stop: 02/21/17 07:25 Hydromorphone HCl (Dilaudid) Confirm Administered Dose 2 mg .ROUTE .STK-MED ONE Stop: 02/21/17 07:27 Cefazolin Sodium/Dextrose 2 gm (/ Premix) 50 mls @ 100 mls/hr IV ONETIME ONE Stop: 02/20/17 10:27 Last Admin: 02/21/17 17:05 Dose: Not Given Acetaminophen (Ofirmev) Confirm Administered Dose 100 mls @ as directed IV .STK- MED ONE Stop: 02/21/17 07:32 Ketorolac Tromethamine (Toradol) Confirm Administered Dose 30 mg .ROUTE .STK- MED ONE Stop: 02/21/17 09:17 Ketorolac Tromethamine (Toradol) 30 mg IVPUSH ONETIME ONE Stop: 02/21/17 09:17 Last Admin: 02/21/17 09:30 Dose: Not Given Lidocaine (Xylocaine-Mpf 2%) Confirm Administered Dose 5 ml .ROUTE .STK-MED ONE Stop: 02/21/17 07:27 Midazolam HCl (Versed 1 Mg/Ml) Confirm Administered Dose 2 mg .ROUTE .STK-MED ONE Stop: 02/21/17 07:27 Ondansetron HCl (Zofran) Confirm Administered Dose 4 mg .ROUTE .STK-MED ONE Stop: 02/21/17 07:27 Propofol (Diprivan 20 Ml) Confirm Administered Dose 200 mg .ROUTE .STK-MED ONE Stop: 02/21/17 07:27 Rocuronium [place] (Zemuron) Confirm Administered Dose 100 mg .ROUTE .STK-MED ONE Stop: 02/21/17 07:27 - Exam Wound/Incisions: Healing Well General: Alert, Oriented HEENT: Pupils Equal Neck: Supple Lungs: Clear to Auscultation, Normal Respiratory Effort Cardiovascular: Regular Rate, Regular Rhythm GI/Abdominal Exam: Normal Bowel Sounds, Soft, Non-Tender, No Organomegaly, No Distention, No Abnormal Bruit, No Mass, Pelvis Stable Extremities: Normal Inspection, Normal Range of Motion, Non-Tender, No Pedal Edema, Normal Capillary Refill Skin: Warm, Dry, Intact Neurological: No New Focal Deficit Psy/Mental Status: Alert, Normal Affect, Normal Mood - Problem List Review Problem List Initiated/Reviewed/Updated: Yes - My Orders Last 24 Hours: Active Orders 24 hr Category Date Time Status Patient Status [ADT] Routine ADT 02/21/17 09:17 Active Antiembolic Devices [RC] PER UNIT ROUTINE Care 02/21/17 09:17 Active Notify Provider Vital Signs [RC] ASDIRECTED Care 02/21/17 09:17 Active Oxygen Therapy [RC] ASDIRECTED Care 02/21/17 09:17 Active RT Incentive Spirometry [RC] Q2HWA Care 02/21/17 09:17 Active Up With Assistance [RC] PER UNIT ROUTINE Care 02/21/17 09:17 Active Up ad [place] [RC] PER UNIT ROUTINE Care 02/21/17 09:17 Active Regular Diet [DIET] Diet 02/21/17 Lunch Active Acetaminophen [Tylenol Extra Strength] Med 12/14/17 13:29 Active 1,000 mg PO Q6H PRN Acetaminophen/oxyCODONE [Percocet 325-5 MG] Med 02/21/17 09:16 Active 1 tab PO Q4H PRN Acetaminophen/oxyCODONE [Percocet 325-5 MG] Med 02/21/17 09:16 Active 2 tab PO Q4H PRN Ketorolac [Toradol] Med 02/21/17 15:30 Active 30 mg IVPUSH Q6H PRN Morphine Med 02/21/17 09:16 Active 2 mg IVPUSH Q2H PRN Morphine Med 02/21/17 09:16 Active 4 mg IVPUSH Q2H PRN Ondansetron [Zofran] Med 02/21/17 09:16 Active 4 mg IVPUSH Q6H PRN Promethazine [Phenergan] Med 02/21/17 09:16 Active 25 mg IM Q6H PRN fentaNYL [Sublimaze] Med 02/21/17 09:35 Active 50 mcg IVPUSH .Q5MIN PRN Peripheral IV Discontinue [OM.PC] Routine Oth 02/21/17 09:17 Ordered Sequential Compression Device [OM.PC] Per Unit Routine Oth 02/21/17 09:17 Ordered Resuscitation Status Routine Resus Stat 02/21/17 09:16 Ordered Medication Orders Acetaminophen (Tylenol Extra Strength) 1,000 mg PO Q6H PRN PRN Reason: Pain Last Admin: 02/21/17 13:39 Dose: 1,000 mg Fentanyl (Sublimaze) 50 mcg IVPUSH .Q5MIN PRN PRN Reason: Pain Last Admin: 02/21/17 10:20 Dose: 50 mcg Admin: 02/21/17 10:15 Dose: 50 mcg Admin: 02/21/17 10:12 Dose: 50 mcg Admin: 02/21/17 09:58 Dose: 50 mcg Lactated Ringer's (Ringers, Lactated) 1,000 mls @ 125 mls/hr IV ASDIRECTED [facility] Last Admin: 02/21/17 11:45 Dose: 125 mls/hr Infusion: 02/21/17 11:45 Dose: 125 mls/hr Admin: 02/21/17 06:41 Dose: 125 mls/hr Ketorolac Tromethamine (Toradol) 30 mg IVPUSH Q6H PRN PRN Reason: Pain (severe 7-10) Stop: 02/26/17 15:31 Last Admin: 02/22/17 08:15 Dose: 30 mg Admin: 02/21/17 15:16 Dose: 30 mg Morphine Sulfate (Morphine) 2 mg IVPUSH Q2H PRN PRN Reason: Pain (severe 7-10) Morphine Sulfate (Morphine) 4 mg IVPUSH Q2H PRN PRN Reason: Pain (severe 7-10) Ondansetron HCl (Zofran) 4 mg IVPUSH Q6H PRN PRN Reason: Nausea/Vomiting Oxycodone/Acetaminophen (Percocet 325-5 Mg) 1 tab PO Q4H PRN PRN Reason: Pain (moderate 4-6) Last Admin: 02/22/17 03:38 Dose: 1 tab Admin: 02/21/17 19:15 Dose: 1 tab Oxycodone/Acetaminophen (Percocet 325-5 Mg) 2 tab PO Q4H PRN PRN Reason: Pain (moderate 4-6) Promethazine HCl (Phenergan) 25 mg IM Q6H PRN PRN Reason: Nausea/Vomiting Scopolamine (Transderm-Scop) 1.5 mg TRDERM Q72H PRN PRN Reason: Nausea Last Admin: 02/21/17 07:54 Dose: 1.5 mg Sodium Chloride (Saline Flush) 10 ml FLUSH ASDIRECTED PRN PRN Reason: Keep Vein Open Last Admin: 02/21/17 17:03 Dose: 10 ml Sodium Chloride (Saline Flush) 2.5 ml FLUSH ASDIRECTED PRN PRN Reason: Keep Vein Open - Assessment Assessment (Free Text/Narrative):: Status post vaginal hysterectomy postoperative day #1 patient is doing well no vaginal bleeding vital signs stable her lab work within normal limits patient umbilicus 3 in the room voiding without any problem in passing marciano. - Plan Plan (Free Text/Narrative):: Patient will be discharged home today the post hysterectomy instruction is given to the patient a prescription for Percocet 7.5/325 for postoperative pain is given there is no restriction on her diet the patient is to come to the office for late postoperative examination in 1 week
--- NOTE | 2017-02-22 08:42 | PCM.DCSUM1 ---
Discharge Summary - Discharge Data Discharge Date: 02/22/17 Discharge Disposition: Home, Self-Care 01 Condition: Good - Patient Summary/Data Operative Procedure(s) Performed: TVH,RSO,Lsalpengectomy and cystoscopy. - Patient Instructions Diet: Usual Diet as Tolerated Driving: Do Not Drive Showering/Bathing: May Shower Notify Provider of: Fever, Increased Pain, Nausea and/or Vomiting - Discharge Plan Home Medications: Home Meds ALPRAZolam [Xanax] 1 mg PO ASDIRECTED PRN 07/11/16 [History] Gabapentin [Neurontin] 100 mg PO BEDTIME 07/11/16 [History] Promethazine [Phenergan] 25 mg PO DAILY PRN 07/11/16 [History] Zolpidem [Ambien] 10 mg PO BEDTIME PRN 07/11/16 [History] cloNIDine HCl [Catapres] 0.1 mg PO BEDTIME 07/11/16 [History] Rizatriptan Benzoate [Maxalt] 10 mg PO DAILY PRN 07/22/16 [History] Albuterol Sulfate [Proair Hfa] 1 - 2 puff INH ASDIRECTED PRN 02/19/17 [History] Desvenlafaxine Succinate [Desvenlafaxine Succinate ER] 100 mg PO DAILY 02/19/17 [History] Esomeprazole [NexIUM] 40 mg PO DAILY 02/19/17 [History] Fluticasone Propionate [Flovent Hfa] 2 puff INH BID PRN 02/19/17 [History] traZODone HCl [Trazodone HCl] 1 - 2 tab PO BEDTIME 02/19/17 [History] - General Info Date of Service: 02/22/17 Functional Status: Reports: Pain Controlled - Review of Systems General: Reports: No Symptoms HEENT: Reports: No Symptoms Pulmonary: Reports: No Symptoms Cardiovascular: Reports: No Symptoms Gastrointestinal: Reports: No Symptoms Genitourinary: Reports: No Symptoms Musculoskeletal: Reports: No Symptoms Skin: Reports: No Symptoms Neurological: Reports: No Symptoms Psychiatric: Reports: No Symptoms - Patient Data Vitals - Most Recent: Last Vital Signs Temp 37.2 C 02/22/17 05:30 Pulse 80 02/22/17 05:30 Resp 12 02/22/17 05:30 BP 113/63 02/22/17 05:30 Pulse Ox 95 02/22/17 05:30 Weight - Most Recent: 107.501 kg I&O - Last 24 hours: Intake & Output 02/21/17 02/22/17 02/22/17 22:59 06:59 14:59 Output Total 1999 999 Balance -1999 Lab Results - Last 24 hrs: Laboratory Results - last 24 hr 02/22/17 02/22/17 Range/Units 04:58 04:58 WBC 8.27 (4.0-11.0) K/uL RBC 3.56 L (4.30-5.90) M/uL Hgb 12.0 (12.0-16.0) g/dL Hct 33.9 L (36.0-46.0) % MCV 95.2 (80.0-98.0) fL MCH 33.7 H (27.0-32.0) pg MCHC 35.4 (31.0-37.0) g/dL RDW Std Deviation 45.0 (28.0-62.0) fl RDW Coeff of Anai 13 (11.0-15.0) % Plt Count 169 (150-400) K/uL MPV 10.10 (7.40-12.00) fL Neut % (Auto) 72.6 (48.0-80.0) % Lymph % (Auto) 18.9 (16.0-40.0) % [place] % (Auto) 8.5 (0.0-15.0) % Eos % (Auto) 0.0 (0.0-7.0) % Baso % (Auto) 0.0 (0.0-1.5) % Neut # (Auto) 6.0 H (1.4-5.7) K/uL Lymph # (Auto) 1.6 (0.6-2.4) K/uL [place] # (Auto) 0.7 (0.0-0.8) K/uL Eos # (Auto) 0.0 (0.0-0.7) K/uL Baso # (Auto) 0.0 (0.0-0.1) K/uL Nucleated RBC % 0.0 /100WBC Nucleated RBCs # 0 K/uL Sodium 141 (136-146) mmol/L Potassium 3.5 (3.5-5.1) mmol/L Chloride 110 (98-110) mmol/L Carbon Dioxide 24 (21-31) mmol/L BUN 7 (6.0-23.0) mg/dL Creatinine 0.7 (0.6-1.5) mg/dL Est Cr Clr Drug Dosing 112.06 mL/min Estimated GFR (MDRD) > 60.0 ml/min Glucose 100 (60-110) mg/dL Calcium 8.0 L (8.8-10.8) mg/dL Med Orders - Current: Current Medications Acetaminophen (Tylenol Extra Strength) 1,000 mg PO Q6H PRN PRN Reason: Pain Last Admin: 02/21/17 13:39 Dose: 1,000 mg Fentanyl (Sublimaze) 50 mcg IVPUSH .Q5MIN PRN PRN Reason: Pain Last Admin: 02/21/17 10:20 Dose: 50 mcg Lactated Ringer's (Ringers, Lactated) 1,000 mls @ 125 mls/hr IV ASDIRECTED [facility] Last Admin: 02/21/17 11:45 Dose: 125 mls/hr Ketorolac Tromethamine (Toradol) 30 mg IVPUSH Q6H PRN PRN Reason: Pain (severe 7-10) Stop: 02/26/17 15:31 Last Admin: 02/22/17 08:15 Dose: 30 mg Morphine Sulfate (Morphine) 2 mg IVPUSH Q2H PRN PRN Reason: Pain (severe 7-10) Morphine Sulfate (Morphine) 4 mg IVPUSH Q2H PRN PRN Reason: Pain (severe 7-10) Ondansetron HCl (Zofran) 4 mg IVPUSH Q6H PRN PRN Reason: Nausea/Vomiting Oxycodone/Acetaminophen (Percocet 325-5 Mg) 1 tab PO Q4H PRN PRN Reason: Pain (moderate 4-6) Last Admin: 02/22/17 03:38 Dose: 1 tab Oxycodone/Acetaminophen (Percocet 325-5 Mg) 2 tab PO Q4H PRN PRN Reason: Pain (moderate 4-6) Promethazine HCl (Phenergan) 25 mg IM Q6H PRN PRN Reason: Nausea/Vomiting Scopolamine (Transderm-Scop) 1.5 mg TRDERM Q72H PRN PRN Reason: Nausea Last Admin: 02/21/17 07:54 Dose: 1.5 mg Sodium Chloride (Saline Flush) 10 ml FLUSH ASDIRECTED PRN PRN Reason: Keep Vein Open Last Admin: 02/21/17 17:03 Dose: 10 ml Sodium Chloride (Saline Flush) 2.5 ml FLUSH ASDIRECTED PRN PRN Reason: Keep Vein Open Discontinued Medications Dexamethasone (Dexamethasone) Confirm Administered Dose 20 mg .ROUTE .STK-MED ONE Stop: 02/21/17 08:22 Diphenhydramine HCl (Benadryl) Confirm Administered Dose 50 mg .ROUTE .STK-MED ONE Stop: 02/21/17 08:22 Fentanyl (Sublimaze) Confirm Administered Dose 250 mcg .ROUTE .STK-MED ONE Stop: 02/21/17 07:27 Fluorescein Sodium (Ak-Fluor) Confirm Administered Dose 5 ml .ROUTE .STK-MED ONE Stop: 02/21/17 07:25 Hydromorphone HCl (Dilaudid) Confirm Administered Dose 2 mg .ROUTE .STK-MED ONE Stop: 02/21/17 07:27 Cefazolin Sodium/Dextrose 2 gm (/ Premix) 50 mls @ 100 mls/hr IV ONETIME ONE Stop: 02/20/17 10:27 Last Admin: 02/21/17 17:05 Dose: Not Given Acetaminophen (Ofirmev) Confirm Administered Dose 100 mls @ as directed IV .STK- MED ONE Stop: 02/21/17 07:32 Ketorolac Tromethamine (Toradol) Confirm Administered Dose 30 mg .ROUTE .STK- MED ONE Stop: 02/21/17 09:17 Ketorolac Tromethamine (Toradol) 30 mg IVPUSH ONETIME ONE Stop: 02/21/17 09:17 Last Admin: 02/21/17 09:30 Dose: Not Given Lidocaine (Xylocaine-Mpf 2%) Confirm Administered Dose 5 ml .ROUTE .STK-MED ONE Stop: 02/21/17 07:27 Midazolam HCl (Versed 1 Mg/Ml) Confirm Administered Dose 2 mg .ROUTE .STK-MED ONE Stop: 02/21/17 07:27 Ondansetron HCl (Zofran) Confirm Administered Dose 4 mg .ROUTE .STK-MED ONE Stop: 02/21/17 07:27 Propofol (Diprivan 20 Ml) Confirm Administered Dose 200 mg .ROUTE .STK-MED ONE Stop: 02/21/17 07:27 Rocuronium [place] (Zemuron) Confirm Administered Dose 100 mg .ROUTE .STK-MED ONE Stop: 02/21/17 07:27 - Exam General: Reports: Alert, Oriented HEENT: Reports: Pupils Equal, Pupils Reactive, EOMI, Mucous Membr. Moist/[place]: Reports: Supple Lungs: Reports: Clear to Auscultation, Normal Respiratory Effort Cardiovascular: Reports: Regular Rate, Regular Rhythm GI/Abdominal Exam: Normal Bowel Sounds, Soft, Non-Tender, No Organomegaly, No Distention, No Abnormal Bruit, No Mass, Pelvis Stable (Female) Exam: Normal External Exam, Normal Speculum Exam, Normal Bimanual Exam Rectal (Female) Exam: Normal Exam, Normal Rectal Tone Back Exam: Reports: Normal Inspection, Full Range of Motion Extremities: Normal Inspection, Normal Range of Motion, Non-Tender, No Pedal Edema, Normal Capillary Refill Skin: Reports: Warm, Dry, Intact Wound/Incisions: Reports: Healing Well Neurological: Reports: No New Focal Deficit Psy/Mental Status: Reports: Alert, Normal Affect, Normal Mood *Q Meaningful Use (DIS) - VTE *Q VTE Criteria *Q: - Stroke *Q Stroke Criteria *Q: - AMI *Q AMI Criteria *Q:
[2017-02-22 08:44] VITALS: BP 106/70
== END 2017-02-22 10:30 | disposition home or self-care (01) ==
LOC: MW.SDS 06:22 → MW.OB 09:17 → MW.SDS 02-22 10:30
PROVIDERS: ATTEND Obstetrics & Gynecology
DX: D25.9 Leiomyoma of uterus, unspecified (principal); J20.9 Acute bronchitis, unspecified; J30.9 Allergic rhinitis, unspecified; F41.9 Anxiety disorder, unspecified; M17.11 Unilateral primary osteoarthritis, right knee; J32.9 Chronic sinusitis, unspecified; K21.9 Gastro-esophageal reflux disease without esophagitis; E87.6 Hypokalemia; F33.1 Major depressive disorder, recurrent, moderate; G47.30 Sleep apnea, unspecified; E66.9 Obesity, unspecified; N84.0 Polyp of corpus uteri; Z79.899 Other long term (current) drug therapy; Z79.51 Long term (current) use of inhaled steroids; Z88.0 Allergy status to penicillin; Z90.49 Acquired absence of other specified parts of digestive tract; Z87.442 Personal history of urinary calculi; Z87.891 Personal history of nicotine dependence; Z68.30 Body mass index [BMI] 30.0-30.9, adult
CPT/HCPCS: 36415; 58262; 80048; 84703; 85025; 85027; 86850; 86900; 86901; A9270; J0690; J1100; J1170; J1200; J1885; J2250; J2405; J3010; J7120; 00944; 88309; J2704

== ENCOUNTER 2017-04-17 20:32 | Emergency (ER) | payer BC, OTHER ==
[2017-04-17] MEDS ORDERED: Ketorolac 60 MG/2 ML SDV IM ONE (20:50)
[2017-04-17] MEDS ORDERED: Ondansetron 4 MG Tab.DIS PO ONE (20:50)
--- NOTE | 2017-04-17 21:04 | EDM.PDOC ---
ED HPI GENERAL MEDICAL PROBLEM - General Chief Complaint: Upper Extremity Injury/Pain Stated Complaint: PT HURT RT FOOT Time Seen by Provider: 04/17/17 20:34 Source of Information: Reports: Patient History Limitations: Reports: No Limitations - History of Present Illness INITIAL COMMENTS - FREE TEXT/NARRATIVE: HISTORY AND PHYSICAL: History of present illness: Patient is a 42-year-old female who presents to the emergency room today with complaints of right foot pain. She states she has a history of a torn ligament which required surgery approximately one year ago (although she is unsure of what surgery she had). Since that time she has had intermittent pain which is associated with standing on her feet for long periods of time. For the past week she has had increased pain and burning to the affected extremity. She is concerned that she may have another ligament injury. His any recent trauma or falls. Review of systems: As per history of present illness and below otherwise all systems reviewed and negative. Past medical history: As per history of present illness and as reviewed below otherwise noncontributory. Surgical history: As per history of present illness and as reviewed below otherwise noncontributory. Social history: No reported history of drug or alcohol abuse. Family history: As per history of present illness and as reviewed below otherwise noncontributory. Physical exam: General: Well-developed and well-nourished 42-year-old female. Alert and oriented. Nontoxic appearing and in no acute distress. HEENT: Atraumatic, normocephalic, pupils reactive, negative for conjunctival pallor or scleral icterus, mucous membranes moist, throat clear, neck supple, nontender, trachea midline. Lungs: Clear to auscultation, breath sounds equal bilaterally, chest nontender. Heart: S1S2, regular rate and rhythm. Abdomen: Soft, nondistended, nontender. Negative for masses or costovertebral tenderness. Pelvis: Stable nontender. Genitourinary: Deferred. Rectal: Deferred. Extremities: Atraumatic, moves all extremities per self without difficulty or deficits, good flexion and extension at the ankle, achilles intact, she is negative for cords or calf pain. Strong pedal pulses bilaterally. Cap refill less than 3 seconds. +CMS. Neurovascular unremarkable. Skin: Intact, warm, dry. No erythema or soft tissue swelling. No rashes or lesions noted. Neuro: Awake, alert, oriented. Cranial nerves II through XII unremarkable. Cerebellum unremarkable. Motor and sensory unremarkable throughout. Exam nonfocal. I did discuss with the patient the limited use of our MRI machine through the emergency room. As this is not emergent (no injury or trauma), today I am able to offer her an x-ray of her foot. We discussed the need for close follow-up with her primary care provider or podiatry as she will likely need an MRI in the future. Patient describes the pain as a "burning" sensation. Denies any history of DM. Patient is currently on Neurontin for chronic back pain, which may be helpful with her pain she is having now (as it sounds like neuropathy like pain). X-ray shows no acute fracture, subluxation or dislocation. There is mild osteoarthritis noted. Diagnostics: X-ray right foot Therapeutics: Postop shoe, crutches Impression: Right foot pain Plan: 1. Please use the Post-Op shoe and crutches for comfort until you are able to follow up with podiatry. 2. Take your routine medications as prescribed. Tramadol for night time use. Tylenol or Ibuprofen as needed for pain management. 3. Follow up in the ED as needed as discussed. Definitive disposition and diagnosis as appropriate pending reevaluation and review of above. right foot Pain Score (Numeric/FACES): 10 - Related Data Allergies Allergy/AdvReac Type Severity Reaction Status Date / Time Penicillins Allergy Rash Verified 04/17/17 20:36 Home Meds: Home Meds ALPRAZolam [Xanax] 1 mg PO ASDIRECTED PRN 07/11/16 [History] Gabapentin [Neurontin] 100 mg PO BEDTIME 07/11/16 [History] Promethazine [Phenergan] 25 mg PO DAILY PRN 07/11/16 [History] Zolpidem [Ambien] 10 mg PO BEDTIME PRN 07/11/16 [History] cloNIDine HCl [Catapres] 0.1 mg PO BEDTIME 07/11/16 [History] Rizatriptan Benzoate [Maxalt] 10 mg PO DAILY PRN 07/22/16 [History] Albuterol Sulfate [Proair Hfa] 1 - 2 puff INH ASDIRECTED PRN 02/19/17 [History] Desvenlafaxine Succinate [Desvenlafaxine Succinate ER] 100 mg PO DAILY 02/19/17 [History] Esomeprazole [NexIUM] 40 mg PO DAILY 02/19/17 [History] Fluticasone Propionate [Flovent Hfa] 2 puff INH BID PRN 02/19/17 [History] traZODone HCl [Trazodone HCl] 200 mg PO BEDTIME 02/19/17 [History] Past Medical History - Past Health History Medical/Surgical History: Denies Medical/Surgical History HEENT History: Reports: Impaired Vision, Other (See Below) Other HEENT History: wears glasses/contacts Respiratory History: Reports: Bronchitis, Recurrent Gastrointestinal History: Reports: GERD, Other (See Below) Other Gastrointestinal History: hx C-diff in 2014, h/o gastric ulcer Genitourinary History: Reports: Renal Calculus TRAVEL JOURNALIST History: Reports: Dysfunctional Uterine Bleeding, Other (See Below) Other OB/BYN History: ovarian cyst surgery, right Musculoskeletal History: Reports: Arthritis, Back Pain, Chronic Neurological History: Reports: Migraines, Vertigo Psychiatric History: Reports: Anxiety, Depression, Panic Attack Other Psychiatric History: insomnia Endocrine/Metabolic History: Reports: Obesity/BMI 30+ Hematologic History: Reports: None - Infectious Disease History Infectious Disease History: Reports: Chicken Pox - Past Surgical History Head Surgeries/Procedures: Reports: None HEENT Surgical History: Reports: Naso-Sinus Surgery GI Surgical History: Reports: Appendectomy, Cholecystectomy, Colonoscopy Female Surgical History: Reports: Other (See Below) Other Female Surgeries/Procedures: laparotomy for ruptured ovarian cyst Endocrine Surgical History: Reports: None Neurological Surgical History: Reports: None Musculoskeletal Surgical History: Reports: Other (See Below) Other Musculoskeletal Surgeries/Procedures:: R foot peroneus longus tendon repair Social & Family History - Family History Family Medical History: Noncontributory - Tobacco Use Smoking Status *Q: Current Every Day Smoker Years of Tobacco use: 1 Packs/Tins Daily: 1 Used Tobacco, but Quit: Yes Month Tobacco Last Used: quit smoking 13 yrs ago Second Hand Smoke Exposure: No - Caffeine Use Caffeine Use: Reports: None - Recreational Drug Use Recreational Drug Use: No Review of Systems - Review of Systems Review Of Systems: ROS reveals no pertinent complaints other than HPI. ED EXAM, GENERAL - Physical Exam Exam: See Below (See dictation) Course - Vital Signs Last Recorded V/S: Last Vital Signs Temp 97.5 F 02/07/18 20:32 Pulse 93 04/17/17 20:32 Resp 18 04/17/17 20:32 BP 112/76 04/17/17 20:32 Pulse Ox 98 04/17/17 20:32 - Orders/Labs/Meds Orders: Active Orders 24 hr Category Date Time Status Foot 2V Rt [CR] Stat Exams 04/17/17 20:50 Taken DME for Discharge [COMM] Stat Oth 04/17/17 21:12 Ordered Meds: Medications Discontinued Medications Generic Name Dose Route Start Last Admin Trade Name Hua PRN Reason Stop Dose Admin Ketorolac Tromethamine 60 mg 04/17/17 20:50 04/17/17 20:56 Toradol IM 04/17/17 20:51 60 mg ONETIME ONE Administration Ondansetron HCl 4 mg 04/17/17 20:50 04/17/17 20:56 Zofran Odt PO 04/17/17 20:51 4 mg ONETIME ONE Administration Departure - Departure Time of Disposition: 21:41 Disposition: Home, Self-Care 01 Clinical Impression: Foot pain, right - Discharge Information Referrals: PCP,None [Primary Care Provider] - Forms: ED Department Discharge Additional Instructions: My general discharge The following information is given to patients seen in the emergency department who are being discharged to home. This information is to outline your options for follow-up care. We provide all patients seen in our emergency department with a follow-up referral. The need for follow-up, as well as the timing and circumstances, are variable depending upon the specifics of your emergency department visit. If you don't have a primary care physician on staff, we will provide you with a referral. We always advise you to contact your personal physician following an emergency department visit to inform them of the circumstance of the visit and for follow-up with them and/or the need for any referrals to a consulting specialist. The emergency department will also refer you to a specialist when appropriate. This referral assures that you have the opportunity for follow-up care with a specialist. All of these measure are taken in an effort to provide you with optimal care, which includes your follow-up. Under all circumstances we always encourage you to contact your private physician who remains a resource for coordinating your care. When calling for follow-up care, please make the office aware that this follow-up is from your recent emergency room visit. If for any reason you are refused follow-up, please contact the Emergency Department at and asked to speak to the emergency department charge nurse. Dr Sullivan [address] [place] [id number] 1. Please use the Post-Op shoe and crutches for comfort until you are able to follow up with podiatry. 2. Take your routine medications as prescribed. Tramadol for night time use. Tylenol or Ibuprofen as needed for pain management. 3. Follow up in the ED as needed as discussed. - My Orders Last 24 Hours: My Active Orders 04/17/17 20:50 Foot 2V Rt [CR] Stat 04/17/17 21:12 DME for Discharge [COMM] Stat - Assessment/Plan Last 24 Hours: My Active Orders 04/17/17 20:50 Foot 2V Rt [CR] Stat 04/17/17 21:12 DME for Discharge [COMM] Stat
[2017-04-17 22:00] VITALS: BP 104/88
--- NOTE | 2017-04-18 10:45 | CR ---
EXAM DATE: 04/17/17 PATIENT'S AGE: 42 Patient: CARISSA BUCKLEY Facility: [place], [place] Site . Site : 1975 Study: XRay Extremity Right foot [id number]/7/2018 9:19:53 PM Ordering Physician: Doctor Kruger Final Report: INDICATION: Pain. TECHNIQUE: Two views. COMPARISON: None. IMPRESSION: No acute fracture. No subluxation or dislocation. Moderate hallux valgus with an associated bunion deformity. Mild 1st MTP DJD/osteoarthritis. No other significant arthritic changes are seen in the foot. Dictated by Edson Jimenez MD @ 04/17/2017 9:35:38 PM Dictated by: Edson Jimenez MD @ 04/17/2017 21:35:43 (Electronic Signature) Report Signed by Proxy. [facility] CENTERRicarda
== END 2017-04-17 22:03 | disposition home or self-care (01) ==
LOC: MW.ED 20:32
DX: M79.671 Pain in right foot (principal); F17.210 Nicotine dependence, cigarettes, uncomplicated; Z88.0 Allergy status to penicillin; Z79.899 Other long term (current) drug therapy
CPT/HCPCS: 73620; 96372; 99283; A9270; J1885

== ENCOUNTER 2017-06-04 11:09 | Day surgery (SDC) | payer BC, OTHER ==
[2017-06-04] MEDS ORDERED: Betamethasone Acetate/Betamethasone Sod Phosphate 30 MG/5 ML MDV ONE (11:56)
[2017-06-04] MEDS ORDERED: Iopamidol 408 MG/ML 50 ML SDV ONE (11:56)
[2017-06-04] MEDS ORDERED: Ropivacaine 0.5% 5 MG/ML 30 ML SDV ONE (11:56)
--- NOTE | 2017-06-04 14:02 | OR ---
SURGEON: Elizabeth Powers D.O. DATE OF PROCEDURE: 06/04/2017 OR STAFF PRESENT: 1. Nette Napoles RN. 2. Maira Gao RN. 3. David Pineda RT. WOUND CLASSIFICATION: I. PREOPERATIVE DIAGNOSES: 1. Lumbar degenerative disk disease. 2. Lumbar herniated disk. 3. Chronic discogenic mid-axial low back pain. POSTOPERATIVE DIAGNOSES: 1. Lumbar degenerative disk disease. 2. Lumbar herniated disk. 3. Chronic discogenic mid-axial low back pain. PROCEDURES PERFORMED: 1. Right transforaminal epidural steroid injection at S1. 2. Fluoroscopic guidance for needle placement. 3. Local with oral Valium for sedation. SCREENING QUESTIONS: The patient answered "no" to all of the following questions: 1. Are you allergic to iodine, Betadine or latex? 2. Do you have a bleeding disorder? 3. Do you have any joint replacements, heart valve replacements, or a pacemaker? 4. Are you allergic to anti-inflammatories or blood thinners? 5. Do you have any current local or systemic infections? MEDICAL NECESSITY: This is a patient with a history of chronic low back pain and lower extremity radicular pain in the above dermatomal pattern that comes in for the above diagnostic and therapeutic procedure. Pertinent positives and negatives for this suspected disease process along with the diagnostic findings and testing are in the patient's history and physical exam. The most salient feature includes radicular pain in the above dermatomal pattern. The patient had failed attempts at conservative therapy including physical therapy, nonsteroidal anti- inflammatory drugs, and other medications. No contraindications to perform this procedure including medical, no bleeding disorders or infections, no psychological, no antisocial personality disorder or active addiction disorder. There are no work-related issues, and, in general, the patient does not have any history of multiple prior interventions, surgeries or nerve blocks which have failed to return the patient to function. The patient's other symptoms to be treated include numbness, paresthesia, dysesthesia or hypoesthesia referred into the left lower extremity or any weakness in the involved myotome. This procedure is being performed in accordance with national guidelines as written by the International Sp[employer] Intervention [employer] (ABBIE). DESCRIPTION OF PROCEDURE: The patient had the procedure thoroughly explained including risks, benefits and alternatives. Consent was signed in my clinic indicating understanding and willingness to proceed. The patient presented to [facility] where the patient was escorted to the dressing room to disrobe and change into a hospital gown. Preoperative vital signs were taken and stable. The patient reported that Valium was taken prior to the procedure. The patient was brought to the procedure room and placed in the prone position on the table. A pillow was placed under the abdomen in order to flatten the lumbar lordosis. The back was prepped with ChloraPrep and sterilely draped. All personnel in the operating room were dressed in appropriate attire including surgical scrubs, head and shoe covers. This was to ensure sterility while in the treatment room. During the time fluoroscopy was in use, all personnel in the operating room wore lead fung with thyroid collars. Sterile technique was used during the procedure. The fluoroscope was placed for the right transforaminal epidural steroid injection. There was no sign of infection at the skin site for needle insertion. The skin was anesthetized with 2% lidocaine with a 27 gauge 1-1/2 inch needle. Then a 22 gauge 3-1/2 inch spinal needle, advanced to the right S1. Under direct fluoroscopic guidance needle position was verified in three views; AP, oblique and lateral, with 0.2 cubic centimeters increments of Isovue- 200 dye. No intravascular flow pattern was observed under live fluoroscopy. Then 12 milligrams of Celestone was slowly injected after negative aspiration of heme, cerebrospinal fluid and no paresthesias were noted. The needle was cleared prior to removal from the skin. No adverse reactions were noted. The patient was brought to the recovery room awake and in good condition by my staff. The patient was monitored and discharge instructions were given after a brief stay in the recovery area. Both oral and written discharge and follow up instructions were given. The patient will follow up in the clinic in 3-4 weeks post procedure to evaluate the efficacy. The patient verbalized understanding including understanding of those signs and symptoms that would require emergency care and knows how to contact the office if there are any problems or questions in the meantime. PREOPERATIVE PAIN: 9/10. POSTOPERATIVE PAIN: 6/10. FOLLOWUP: Follow up in the pain clinic in 3 weeks. HOGLCHR / ALMASL /[id number]
== END 2017-06-04 13:43 ==
LOC: MW.SDS 11:09
PROVIDERS: ATTEND Anesthesiology
DX: G89.29 Other chronic pain (principal); M54.5 Low back pain; M51.36 Other intervertebral disc degeneration, lumbar region; F41.9 Anxiety disorder, unspecified; K21.9 Gastro-esophageal reflux disease without esophagitis; F33.1 Major depressive disorder, recurrent, moderate; G47.30 Sleep apnea, unspecified; Z79.899 Other long term (current) drug therapy; Z88.0 Allergy status to penicillin
CPT/HCPCS: 62323; J0702; J2795; Q9966

== ENCOUNTER 2017-07-23 10:51 | Day surgery (SDC) | payer BC, OTHER ==
[2017-07-23] MEDS ORDERED: Betamethasone Acetate/Betamethasone Sod Phosphate 30 MG/5 ML MDV ONE (11:55)
[2017-07-23] MEDS ORDERED: Iopamidol 408 MG/ML 50 ML SDV ONE (11:56)
[2017-07-23] MEDS ORDERED: Lidocaine 2% 5 ML SDV ONE (11:56)
[2017-07-23] MEDS ORDERED: Ropivacaine 0.5% 5 MG/ML 30 ML SDV ONE (11:56)
--- NOTE | 2017-07-23 15:27 | OR ---
SURGEON: Elizabeth Powers D.O. DATE OF PROCEDURE: 07/23/2017 OR STAFF PRESENT: 1. Maira Gao RN. 2. Nette Napoles RN. 3. David Pineda RT. WOUND CLASSIFICATION: I. PREOPERATIVE DIAGNOSES: 1. Lumbar degenerative disk disease. 2. Lumbar annular tear. 3. Right lower extremity radiculopathy, L5-S1. POSTOPERATIVE DIAGNOSES: 1. Lumbar degenerative disk disease. 2. Lumbar annular tear. 3. Right lower extremity radiculopathy, L5-S1. PROCEDURES PERFORMED: 1. Right transforaminal epidural steroid injection at S1. 2. Fluoroscopic guidance for needle placement. 3. Local with oral Valium for sedation. SCREENING QUESTIONS: The patient answered "no" to all of the following questions: 1. Are you allergic to iodine, Betadine or latex? 2. Do you have a bleeding disorder? 3. Do you have any joint replacements, heart valve replacements, or a pacemaker? 4. Are you allergic to anti-inflammatories or blood thinners? 5. Do you have any current local or systemic infections? MEDICAL NECESSITY: This is a patient with a history of chronic low back pain and lower extremity radicular pain in the above dermatomal pattern that comes in for the above diagnostic and therapeutic procedure. Pertinent positives and negatives for this suspected disease process along with the diagnostic findings and testing are in the patient's history and physical exam. The most salient feature includes radicular pain in the above dermatomal pattern. The patient had failed attempts at conservative therapy including physical therapy, nonsteroidal anti- inflammatory drugs, and other medications. No contraindications to perform this procedure including medical, no bleeding disorders or infections, no psychological, no antisocial personality disorder or active addiction disorder. There are no work-related issues, and, in general, the patient does not have any history of multiple prior interventions, surgeries or nerve blocks which have failed to return the patient to function. The patient's other symptoms to be treated include numbness, paresthesia, dysesthesia or hypoesthesia referred into the right lower extremity or any weakness in the involved myotome. This procedure is being performed in accordance with national guidelines as written by the International Sp[employer]vention [employer] (ABBIE). DESCRIPTION OF PROCEDURE: The patient had the procedure thoroughly explained including risks, benefits and alternatives. Consent was signed in my clinic indicating understanding and willingness to proceed. The patient presented to [facility] where the patient was escorted to the dressing room to disrobe and change into a hospital gown. Preoperative vital signs were taken and stable. The patient reported that Valium was taken prior to the procedure. The patient was brought to the procedure room and placed in the prone position on the table. A pillow was placed under the abdomen in order to flatten the lumbar lordosis. The back was prepped with ChloraPrep and sterilely draped. All personnel in the operating room were dressed in appropriate attire including surgical scrubs, head and shoe covers. This was to ensure sterility while in the treatment room. During the time fluoroscopy was in use, all personnel in the operating room wore lead fung with thyroid collars. Sterile technique was used during the procedure. The fluoroscope was placed for the right S1 transforaminal epidural steroid injection. There was no sign of infection at the skin site for needle insertion. The skin was anesthetized with 2% lidocaine with a 27 gauge 1-1/2 inch needle. Then, a 22 gauge 3-1/2 inch spinal needle, advanced to the right S1. Under direct fluoroscopic guidance needle position was verified in three views; AP, oblique and lateral, with 0.2 cubic centimeters increments of Isovue- 200 dye. No intravascular flow pattern was observed under live fluoroscopy. Then 12 milligrams of Celestone followed by 3 cc of 0.5% ropivicaine was slowly injected after negative aspiration of heme, cerebrospinal fluid and no paresthesias were noted. The needle was cleared prior to removal from the skin. No adverse reactions were noted. The patient was brought to the recovery room awake and in good condition by my staff. The patient was monitored and discharge instructions were given after a brief stay in the recovery area. Both oral and written discharge and follow up instructions were given. The patient will follow up in the clinic in 3-4 weeks post procedure to evaluate the efficacy. The patient verbalized understanding including understanding of those signs and symptoms that would require emergency care and knows how to contact the office if there are any problems or questions in the meantime. PREOPERATIVE PAIN: 8/10. POSTOPERATIVE PAIN: 3/10. PLAN: Follow up in the Pain Clinic in 3 weeks. MALU / ADILIA /[id number] MTDD
== END 2017-07-23 13:01 ==
LOC: MW.SDS 10:51
PROVIDERS: ATTEND Anesthesiology
DX: G89.4 Chronic pain syndrome (principal); M51.36 Other intervertebral disc degeneration, lumbar region; M51.86 Other intervertebral disc disorders, lumbar region; M54.17 Radiculopathy, lumbosacral region; F41.9 Anxiety disorder, unspecified; K21.9 Gastro-esophageal reflux disease without esophagitis; M51.34 Other intervertebral disc degeneration, thoracic region; M47.816 Spondylosis without myelopathy or radiculopathy, lumbar region; F33.1 Major depressive disorder, recurrent, moderate; G43.909 Migraine, unspecified, not intractable, without status migrainosus; M46.97 Unspecified inflammatory spondylopathy, lumbosacral region; Z79.899 Other long term (current) drug therapy; Z88.0 Allergy status to penicillin
CPT/HCPCS: 64483; J0702; J2795; Q9966

== ENCOUNTER 2017-08-14 11:14 | Emergency (ER) | payer BC, OTHER ==
--- NOTE | 2017-08-14 12:00 | EDM.PDOCBH ---
ED HPI GENERAL MEDICAL PROBLEM - General Chief Complaint: Behavioral/Psych Stated Complaint: ISSUES Time Seen by Provider: 08/14/17 11:45 Source of Information: Reports: Patient History Limitations: Reports: No Limitations - History of Present Illness INITIAL COMMENTS - FREE TEXT/NARRATIVE: HISTORY AND PHYSICAL: History of present illness: [Pt is brought to the emergency room by her following complaints suicidal thoughts for the past 1-1/2 weeks. Patient has been evaluated by her primary care yesterday and by [facility] services this morning. Screening exam was completed at [place] patient was encouraged to contact local psychiatric facilities for inpatient treatment. Nurse at [facility] in [place] recommended patient report to ER for evaluation and to facilitate transfer. Patient reports a long history of depression and previous suicidal thoughts approximately 5 years ago requiring inpatient hospitalization. States that she feels the same today and she did 5 years ago. Feels as though she is doing everything she can on her own but is not feeling improved. Admits to self- medication with Ambien, ibuprofen p.m., trazodone, Xanax, Pristiq, clonidine, gabapentin. Admits to feeling hopeless and lonely as well as an increase in home stress. She was not invited to her daughter's recent wedding which has caused her a lot of hurt, and she is experiencing trouble within her marriage. is at the bedside and agrees with patient's assessment. Patient states that she has felt suicidal and has considered overdosing on all of her prescribed medications. She has not done so and is not certain if she would act on this impulse. Review of systems: As per history of present illness and below otherwise all systems reviewed and negative. Past medical history: As per history of present illness and as reviewed below otherwise noncontributory. Surgical history: As per history of present illness and as reviewed below otherwise noncontributory. Social history: No reported history of drug or alcohol abuse. Family history: As per history of present illness and as reviewed below otherwise noncontributory. Physical exam: HEENT: Atraumatic, normocephalic. Oral mucous membranes are pink and moist. PERRLA. EOMI. Lungs: Clear to auscultation, breath sounds equal bilaterally. Heart: S1S2, regular rate and rhythm. Abdomen: Soft, nondistended, nontender. Pelvis: Stable nontender. Genitourinary: Deferred. Rectal: Deferred. Extremities: Atraumatic, no swelling or cyanosis to feet or lower legs Neurovascular unremarkable. Neuro: Awake, alert, oriented. Cranial nerves II through XII unremarkable. Cerebellum unremarkable. Motor and sensory unremarkable throughout. Exam nonfocal. Psych: Is tearful on and off throughout conversation. Makes good eye contact and answers questions appropriately. Diagnostics: [CBC, CMP, TSH, magnesium, salicylate, acetaminophen, ethanol level, urine drug screen urinalysis, urine , EKG] Impression: [Depressive Episode with Suicidal ideation] Plan: [[facility] in [place] is contacted and agrees to accept patient in transfer for inpatient psychiatric admission. This is reviewed with Kina Griffiths at [facility], and she is in agreement with transfer. Patient will be going by ambulance, which she is in agreement. Psychiatric hold is placed. Patient notified.] Definitive disposition and diagnosis as appropriate pending reevaluation and review of above. - Related Data Allergies Allergy/AdvReac Type Severity Reaction Status Date / Time Penicillins Allergy Rash Verified 08/14/17 11:28 Home Meds: Home Meds ALPRAZolam [Xanax] 1 - 2 mg PO TID PRN 07/11/16 [History] Gabapentin [Neurontin] 100 mg PO TID 07/11/16 [History] Zolpidem [Ambien] 10 mg PO BEDTIME PRN 07/11/16 [History] cloNIDine HCl [Catapres] 0.1 mg PO BEDTIME 07/11/16 [History] Esomeprazole [NexIUM] 40 mg PO ACBREAKFAST 02/19/17 [History] traZODone HCl [Trazodone HCl] 100 - 200 mg PO BEDTIME 02/19/17 [History] Desvenlafaxine [Khedezla] 50 mg PO BEDTIME 08/14/17 [History] busPIRone [Buspar] 15 mg PO BID 08/14/17 [History] traMADol [Ultram] 50 mg PO Q6H PRN 08/14/17 [History] Past Medical History - Past Health History Medical/Surgical History: Denies Medical/Surgical History HEENT History: Reports: Impaired Vision, Other (See Below) Other HEENT History: wears glasses/contacts Respiratory History: Reports: Bronchitis, Recurrent Gastrointestinal History: Reports: GERD, Other (See Below) Other Gastrointestinal History: hx C-diff in 2015, h/o gastric ulcer Genitourinary History: Reports: Renal Calculus [employer] History: Reports: Dysfunctional Uterine Bleeding, Other (See Below) Other OB/BYN History: ovarian cyst surgery, right Musculoskeletal History: Reports: Arthritis, Back Pain, Chronic Neurological History: Reports: Migraines, Vertigo Psychiatric History: Reports: Anxiety, Depression, Suicidal Ideation Other Psychiatric History: insomnia Endocrine/Metabolic History: Reports: Obesity/BMI 30+ Hematologic History: Reports: None - Infectious Disease History Infectious Disease History: Reports: Chicken Pox - Past Surgical History Head Surgeries/Procedures: Reports: None HEENT Surgical History: Reports: Naso-Sinus Surgery GI Surgical History: Reports: Appendectomy, Cholecystectomy, Colonoscopy Female Surgical History: Reports: Other (See Below) Other Female Surgeries/Procedures: laparotomy for ruptured ovarian cyst Endocrine Surgical History: Reports: None Neurological Surgical History: Reports: None Musculoskeletal Surgical History: Reports: Other (See Below) Other Musculoskeletal Surgeries/Procedures:: R foot peroneus longus tendon repair Social & Family History - Family History Family Medical History: Noncontributory - Tobacco Use Smoking Status *Q: Current Every Day Smoker Years of Tobacco use: 1 Packs/Tins Daily: 0.3 - Caffeine Use Caffeine Use: Reports: Coffee, Soda - Alcohol Use Days Per Week of Alcohol Use: 1 Number of Drinks Per Day: 3 Total Drinks Per Week: 3 - Recreational Drug Use Recreational Drug Use: No ED ROS GENERAL - Review of Systems Review Of Systems: ROS reveals no pertinent complaints other than HPI. ED EXAM, BEHAVIORAL HEALTH - Physical Exam Exam: See Below COURSE, BEHAVIORAL HEALTH COMP - Course Vital Signs: Last Vital Signs Temp 98.3 F 08/14/17 11:28 Pulse 84 08/14/17 11:28 Resp 18 08/14/17 11:28 BP 113/70 08/14/17 11:28 Pulse Ox 95 08/14/17 11:28 Orders, Labs, Meds: Active Orders 24 hr Category Date Time Status EKG Documentation Completion [RC] STAT Care 08/14/17 12:05 Active Laboratory Tests 08/14/17 08/14/17 08/14/17 Range/Units 12:27 12:27 12:29 WBC 5.73 (4.0-11.0) K/uL RBC 4.18 L (4.30-5.90) M/uL Hgb 14.1 (12.0-16.0) g/dL Hct 39.5 (36.0-46.0) % MCV 94.5 (80.0-98.0) fL MCH 33.7 H (27.0-32.0) pg MCHC 35.7 (31.0-37.0) g/dL RDW Std Deviation 43.4 (28.0-62.0) fl RDW Coeff of Anai 13 (11.0-15.0) % Plt Count 172 (150-400) K/uL MPV 10.40 (7.40-12.00) fL Neut % (Auto) 51.1 (48.0-80.0) % Lymph % (Auto) 38.9 (16.0-40.0) % Gonzales % (Auto) 7.7 (0.0-15.0) % Eos % (Auto) 2.1 (0.0-7.0) % Baso % (Auto) 0.2 (0.0-1.5) % Neut # (Auto) 2.9 (1.4-5.7) K/uL Lymph # (Auto) 2.2 (0.6-2.4) K/uL Gonzales # (Auto) 0.4 (0.0-0.8) K/uL Eos # (Auto) 0.1 (0.0-0.7) K/uL Baso # (Auto) 0.0 (0.0-0.1) K/uL Nucleated RBC % 0.0 /100WBC Nucleated RBCs # 0 K/uL Sodium 139 (136-145) mmol/L Potassium 4.3 (3.5-5.1) mmol/L Chloride 104 (98-107) mmol/L Carbon Dioxide 29.7 (21.0-32.0) mmol/L BUN 18 (7.0-18.0) mg/dL Creatinine 0.7 (0.6-1.0) mg/dL Est Cr Clr Drug Dosing 115.82 mL/min Estimated GFR (MDRD) > 60.0 ml/min Glucose 115 H (74-106) mg/dL Calcium 9.0 (8.5-10.1) mg/dL Magnesium 2.0 (1.5-2.0) mg/dL Total Bilirubin 0.3 (0.2-1.0) mg/dL AST 20 (15-37) IU/L ALT 33 (14-63) IU/L Alkaline Phosphatase 120 H (46-116) U/L Total Protein 6.7 (6.4-8.2) g/dL Albumin 3.8 (3.4-5.0) g/dL Globulin 2.9 (2.0-3.5) g/dL Albumin/Globulin Ratio 1.3 (1.3-2.8) TSH 3rd Generation 1.35 (0.36-3.74) uIU/mL Urine Color YELLOW Urine Appearance CLEAR Urine pH 6.5 (5.0-8.0) Ur Specific [place] 1.010 (1.001-1.035) Urine Protein NEGATIVE (NEGATIVE) mg/dL Urine Glucose (UA) NEGATIVE (NEGATIVE) mg/dL Urine Ketones NEGATIVE (NEGATIVE) mg/dL Urine Occult Blood NEGATIVE (NEGATIVE) Urine Nitrite NEGATIVE (NEGATIVE) Urine Bilirubin NEGATIVE (NEGATIVE) Urine Urobilinogen 0.2 (<2.0) EU/dL Ur Leukocyte Esterase NEGATIVE (NEGATIVE) Urine RBC 0-2 (0-2/HPF) Urine WBC 0-2 (0-5/HPF) Ur Epithelial Cells MODERATE (NONE-FEW) Urine Bacteria 1+ H (NEGATIVE) Urine HCG, Qual (NEGATIVE) Salicylates 2.5 (0-20) mg/dL Urine Opiates Screen (NEGATIVE) Ur Oxycodone Screen (NEGATIVE) Urine Methadone Screen (NEGATIVE) Acetaminophen 0.0 ug/mL Ur Barbiturates Screen (NEGATIVE) Ur Phencyclidine Scrn (NEGATIVE) Ur Amphetamine Screen (NEGATIVE) U Methamphetamines Scrn (NEGATIVE) U Benzodiazepines Scrn (NEGATIVE) U Cocaine Metab Screen (NEGATIVE) U Marijuana (THC) Screen (NEGATIVE) Ethyl Alcohol <3 mg/dL 08/14/17 08/14/17 Range/Units 12:29 12:29 WBC (4.0-11.0) K/uL RBC (4.30-5.90) M/uL Hgb (12.0-16.0) g/dL Hct (36.0-46.0) % MCV (80.0-98.0) fL MCH (27.0-32.0) pg MCHC (31.0-37.0) g/dL RDW Std Deviation (28.0-62.0) fl RDW Coeff of Anai (11.0-15.0) % Plt Count (150-400) K/uL MPV (7.40-12.00) fL Neut % (Auto) (48.0-80.0) % Lymph % (Auto) (16.0-40.0) % Gonzales % (Auto) (0.0-15.0) % Eos % (Auto) (0.0-7.0) % Baso % (Auto) (0.0-1.5) % Neut # (Auto) (1.4-5.7) K/uL Lymph # (Auto) (0.6-2.4) K/uL Gonzales # (Auto) (0.0-0.8) K/uL Eos # (Auto) (0.0-0.7) K/uL Baso # (Auto) (0.0-0.1) K/uL Nucleated RBC % /100WBC Nucleated RBCs # K/uL Sodium (136-145) mmol/L Potassium (3.5-5.1) mmol/L Chloride (98-107) mmol/L Carbon Dioxide (21.0-32.0) mmol/L BUN (7.0-18.0) mg/dL Creatinine (0.6-1.0) mg/dL Est Cr Clr Drug Dosing mL/min Estimated GFR (MDRD) ml/min Glucose (74-106) mg/dL Calcium (8.5-10.1) mg/dL Magnesium (1.5-2.0) mg/dL Total Bilirubin (0.2-1.0) mg/dL AST (15-37) IU/L ALT (14-63) IU/L Alkaline Phosphatase (46-116) U/L Total Protein (6.4-8.2) g/dL Albumin (3.4-5.0) g/dL Globulin (2.0-3.5) g/dL Albumin/Globulin Ratio (1.3-2.8) TSH 3rd Generation (0.36-3.74) uIU/mL Urine Color Urine Appearance Urine pH (5.0-8.0) Ur Specific [place] (1.001-1.035) Urine Protein (NEGATIVE) mg/dL Urine Glucose (UA) (NEGATIVE) mg/dL Urine Ketones (NEGATIVE) mg/dL Urine Occult Blood (NEGATIVE) Urine Nitrite (NEGATIVE) Urine Bilirubin (NEGATIVE) Urine Urobilinogen (<2.0) EU/dL Ur Leukocyte Esterase (NEGATIVE) Urine RBC (0-2/HPF) Urine WBC (0-5/HPF) Ur Epithelial Cells (NONE-FEW) Urine Bacteria (NEGATIVE) Urine HCG, Qual NEGATIVE (NEGATIVE) Salicylates (0-20) mg/dL Urine Opiates Screen NEGATIVE (NEGATIVE) Ur Oxycodone Screen NEGATIVE (NEGATIVE) Urine Methadone Screen NEGATIVE (NEGATIVE) Acetaminophen ug/mL Ur Barbiturates Screen NEGATIVE (NEGATIVE) Ur Phencyclidine Scrn NEGATIVE (NEGATIVE) Ur Amphetamine Screen NEGATIVE (NEGATIVE) U Methamphetamines Scrn NEGATIVE (NEGATIVE) U Benzodiazepines Scrn POSITIVE (NEGATIVE) U Cocaine Metab Screen NEGATIVE (NEGATIVE) U Marijuana (THC) Screen NEGATIVE (NEGATIVE) Ethyl Alcohol mg/dL Departure - Departure Time of Disposition: 15:15 Disposition: DC/Tfer to Acute Hospital 02 Condition: Good Clinical Impression: Suicidal ideation - Discharge Information Referrals: Zafar Barry PA [Primary Care Provider] - Forms: ED Department Discharge - My Orders Last 24 Hours: My Active Orders 08/14/17 12:05 EKG Documentation Completion [RC] STAT - Assessment/Plan Last 24 Hours: My Active Orders 08/14/17 12:05 EKG Documentation Completion [RC] STAT
[2017-08-14 13:23] LABS: CHLORIDE,CL 104 mmol/L (98-107); SODIUM,NA 139 mmol/L (136-145)
[2017-08-14 16:28] VITALS: BP 100/72
[2017-08-14] MEDS ORDERED: LORazepam 1 MG Tab PO ONE (16:54)
== END 2017-08-14 17:05 ==
LOC: MW.ED 11:14
DX: R45.851 Suicidal ideations (principal); F32.9 Major depressive disorder, single episode, unspecified; E66.9 Obesity, unspecified; F17.210 Nicotine dependence, cigarettes, uncomplicated; Z88.0 Allergy status to penicillin
CPT/HCPCS: 36415; 80053; 80305; 81001; 81025; 83735; 84443; 85025; 93005; 99285; A9270; G0480; 99283

== ENCOUNTER 2017-08-17 14:24 | Emergency (ER) | payer BC, OTHER ==
--- NOTE | 2017-08-17 14:33 | EDM.PDOC ---
ED HPI GENERAL MEDICAL PROBLEM - General Chief Complaint: Lower Extremity Injury/Pain Stated Complaint: FELL AND HURT HEARD ANKLE POPPED Time Seen by Provider: 08/17/17 14:26 - History of Present Illness INITIAL COMMENTS - FREE TEXT/NARRATIVE: HISTORY AND PHYSICAL: History of present illness: Patient is a 42-year-old female presents with concern of left foot and ankle injury that occurred when she rolled her foot while walking she denies other trauma or concern Review of systems: As per history of present illness and below otherwise all systems reviewed and negative. Past medical history: As per history of present illness and as reviewed below otherwise noncontributory. Surgical history: As per history of present illness and as reviewed below otherwise noncontributory. Social history: No reported history of drug or alcohol abuse. Family history: As per history of present illness and as reviewed below otherwise noncontributory. Physical exam: HEENT: Atraumatic, normocephalic, pupils reactive, negative for conjunctival pallor or scleral icterus, mucous membranes moist, throat clear, neck supple, nontender, trachea midline. Lungs: Clear to auscultation, breath sounds equal bilaterally, chest nontender. Heart: S1S2, regular, negative for clicks, rubs, or JVD. Abdomen: Soft, nondistended, nontender. Negative for masses or hepatosplenomegaly. Negative for costovertebral tenderness. Pelvis: Stable nontender. Genitourinary: Deferred. Rectal: Deferred. Extremities: Left foot and ankle have tenderness and swelling with some small ecchymosis over the dorsal lateral aspect of her left foot ankles without point tenderness Achilles tendon is intact CMS neurovascular exam is unremarkable Neuro: Awake, alert, oriented. Cranial nerves II through XII unremarkable. Cerebellum unremarkable. Motor and sensory unremarkable throughout. Exam nonfocal. Diagnostics: X-ray left foot/ankle Therapeutics: Short leg posterior mold/crutches Impression: #1 acute left foot/ankle injury Definitive disposition and diagnosis as appropriate pending reevaluation and review of above. Left Feet Pain Score (Numeric/FACES): 10 - Related Data Allergies Allergy/AdvReac Type Severity Reaction Status Date / Time Penicillins Allergy Rash Verified 08/17/17 14:29 Home Meds: Home Meds ALPRAZolam [Xanax] 1 - 2 mg PO TID PRN 07/11/16 [History] Gabapentin [Neurontin] 100 mg PO TID 07/11/16 [History] Zolpidem [Ambien] 10 mg PO BEDTIME PRN 07/11/16 [History] cloNIDine HCl [Catapres] 0.1 mg PO BEDTIME 07/11/16 [History] Esomeprazole [NexIUM] 40 mg PO ACBREAKFAST 02/19/17 [History] traZODone HCl [Trazodone HCl] 100 - 200 mg PO BEDTIME 02/19/17 [History] Desvenlafaxine [Khedezla] 50 mg PO BEDTIME 08/14/17 [History] busPIRone [Buspar] 15 mg PO BID 08/14/17 [History] traMADol [Ultram] 50 mg PO Q6H PRN 08/14/17 [History] Past Medical History - Past Health History Medical/Surgical History: Denies Medical/Surgical History HEENT History: Reports: Impaired Vision, Other (See Below) Other HEENT History: wears glasses/contacts Respiratory History: Reports: Bronchitis, Recurrent Gastrointestinal History: Reports: GERD, Other (See Below) Other Gastrointestinal History: hx C-diff in 2014, h/o gastric ulcer Genitourinary History: Reports: Renal Calculus 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, Other (See Below) Other OB/BYN History: ovarian cyst surgery, right Musculoskeletal History: Reports: Arthritis, Back Pain, Chronic Neurological History: Reports: Migraines, Vertigo Psychiatric History: Reports: Anxiety, Depression, Suicidal Ideation Other Psychiatric History: insomnia Endocrine/Metabolic History: Reports: Obesity/BMI 30+ Hematologic History: Reports: None - Infectious Disease History Infectious Disease History: Reports: Chicken Pox - Past Surgical History Head Surgeries/Procedures: Reports: None HEENT Surgical History: Reports: Naso-Sinus Surgery GI Surgical History: Reports: Appendectomy, Cholecystectomy, Colonoscopy Female Surgical History: Reports: Other (See Below) Other Female Surgeries/Procedures: laparotomy for ruptured ovarian cyst Endocrine Surgical History: Reports: None Neurological Surgical History: Reports: None Musculoskeletal Surgical History: Reports: Other (See Below) Other Musculoskeletal Surgeries/Procedures:: R foot peroneus longus tendon repair Social & Family History - Family History Family Medical History: Noncontributory - Caffeine Use Caffeine Use: Reports: Coffee, Soda Review of Systems - Review of Systems Review Of Systems: ROS reveals no pertinent complaints other than HPI. ED EXAM, GENERAL - Physical Exam Exam: See Below (See dictation) Course - Vital Signs Last Recorded V/S: Last Vital Signs Temp 36.4 C 08/17/17 14:26 Pulse 114 H 08/17/17 14:26 Resp 24 H 08/17/17 14:26 BP 125/77 08/17/17 14:26 Pulse Ox 98 08/17/17 14:26 - Orders/Labs/Meds Orders: Active Orders 24 hr Category Date Time Status Ankle Min 3V Lt [CR] Stat Exams 08/17/17 14:29 Taken Foot 2V Lt [CR] Stat Exams 08/17/17 14:29 Taken Departure - Departure Time of Disposition: 15:56 Disposition: Home, Self-Care 01 Condition: Good Clinical Impression: Foot injury, Ankle injury - Discharge Information Instructions: Ankle Sprain, [id number] Referrals: PCP,None [Primary Care Provider] - Forms: ED Department Discharge Care Plan Goals: 1. Tylenol/Ibuprofen as need for pain and swelling. 2. Follow up with primary care. 3. Estiven wrap and crutches until follow up. 4. Ice ankle and rest. 5. Return to ED as needed as discussed. - My Orders Last 24 Hours: My Active Orders 08/17/17 14:29 Ankle Min 3V Lt [CR] Stat Foot 2V Lt [CR] Stat - Assessment/Plan Last 24 Hours: My Active Orders 08/17/17 14:29 Ankle Min 3V Lt [CR] Stat Foot 2V Lt [CR] Stat
[2017-08-17 14:35] VITALS: BP 125/77
--- NOTE | 2017-08-19 14:16 | CR ---
EXAM DATE: 08/17/17 PATIENT'S AGE: 42 Patient: CARISSA BUCKLEY Facility: [place], [place] Site . Site : 1975 Study: XRay Extremity Left FOOT [id number]/9/[id number] 2:59:04 PM Ordering Physician: Doctor Kruger Final Report: INDICATION: Pain. TECHNIQUE: Two views of the left foot. FINDINGS: Normal alignment. Calcaneal spurs. No fractures are seen. Dictated by Hue Rodriguez MD @ Aug 17 2017 3:01PM (Electronic Signature) Report Signed by Proxy. AN
--- NOTE | 2017-08-19 14:17 | CR ---
EXAM DATE: 08/17/17 PATIENT'S AGE: 42 Patient: CARISSA BUCKLEY Facility: [place], [place] Site . Site : 1975 Study: XRay Extremity Left ANKLE [id number]/9/[id number] 2:59:46 PM Ordering Physician: Doctor Kruger Final Report: INDICATION: Pain. TECHNIQUE: Portable AP, oblique and lateral projections. FINDINGS: No fractures or dislocations identified. Intact ankle mortise. Small calcaneal enthesophytes at the plantar surface. Soft tissues are unremarkable. IMPRESSION: No acute osseous finding or significant arthrosis. Dictated by Fran Ponce MD @ Aug 17 2017 3:01PM (Electronic Signature) Report Signed by Proxy. AN
== END 2017-08-17 15:37 | disposition home or self-care (01) ==
LOC: MW.ED 14:24
DX: S90.02XA Contusion of left ankle, initial encounter (principal); S90.32XA Contusion of left foot, initial encounter; Z88.0 Allergy status to penicillin; Z79.899 Other long term (current) drug therapy; K21.9 Gastro-esophageal reflux disease without esophagitis; M19.90 Unspecified osteoarthritis, unspecified site; F41.9 Anxiety disorder, unspecified; F32.9 Major depressive disorder, single episode, unspecified; W19.XXXA Unspecified fall, initial encounter
CPT/HCPCS: 73610-26-LT; 73610-LT; 73620-26-LT; 73620-LT; 99283

== ENCOUNTER 2017-11-21 12:21 | Day surgery (SDC) | payer BC, OTHER ==
[~2017-11-21 12:21] MED LIST changes: +Betamethasone Acetate/Betamethasone Sod Phosphate 30 MG/5 ML MDV ONE; +Iopamidol 408 MG/ML 50 ML SDV ONE; +Lidocaine 2% 5 ML SDV ONE; +Ropivacaine 0.5% 5 MG/ML 30 ML SDV ONE; +Sodium Bicarbonate 8.4% 50 MEQ/50 ML SDV ONE; -Sodium Chloride 0.9% 10 ML Syringe FLUSH PRN; -Sodium Chloride 0.9% 2.5 ML Syringe FLUSH PRN; -ceFAZolin 2 GM in Premix Bag 1 BAG IV ONE
--- NOTE | 2017-11-22 00:34 | OR ---
SURGEON: Elizabeth Powers D.O. DATE OF PROCEDURE: 11/21/2017 OR STAFF PRESENT: 1. Nette Napoles RN. 2. Maira Mcdaniel RN. 3. RT Kirsten. WOUND CLASSIFICATION: I. PREOPERATIVE DIAGNOSES: 1. Lumbar degenerative disk disease. 2. Right L5-S1 radiculopathy. 3. Chronic low back pain. POSTOPERATIVE DIAGNOSES: 1. Lumbar degenerative disk disease. 2. Right L5-S1 radiculopathy. 3. Chronic low back pain. PROCEDURE PERFORMED: 1. Right transforaminal epidural steroid injection at S1. 2. Fluoroscopic guidance for needle placement. 3. Local with oral valium for sedation. SCREENING QUESTIONS: The patient answered "no" to all of the following questions: 1. Are you allergic to iodine, Betadine or latex? 2. Do you have a bleeding disorder? 3. Do you have any joint replacements, heart valve replacements, or a pacemaker? 4. Are you allergic to anti-inflammatories or blood thinners? 5. Do you have any current local or systemic infections? MEDICAL NECESSITY: This is a patient with a history of chronic low back pain and lower extremity radicular pain in the above dermatomal pattern that comes in for the above diagnostic and therapeutic procedure. Pertinent positives and negatives for this suspected disease process along with the diagnostic findings and testing are in the patient's history and physical exam. The most salient feature includes radicular pain in the above dermatomal pattern. The patient had failed attempts at conservative therapy including physical therapy, nonsteroidal anti- inflammatory drugs, and other medications. No contraindications to perform this procedure including medical, no bleeding disorders or infections, no psychological, no antisocial personality disorder or active addiction disorder. There are no work-related issues, and, in general, the patient does not have any history of multiple prior interventions, surgeries or nerve blocks which have failed to return the patient to function. The patient's other symptoms to be treated include numbness, paresthesia, dysesthesia or hypoesthesia referred into the left lower extremity or any weakness in the involved myotome. This procedure is being performed in accordance with national guidelines as written by the International Sp[employer] Intervention Society (ABBIE). DESCRIPTION OF PROCEDURE: The patient had the procedure thoroughly explained including risks, benefits and alternatives. Consent was signed in my clinic indicating understanding and willingness to proceed. The patient presented to [facility] where the patient was escorted to the dressing room to disrobe and change into a hospital gown. Preoperative vital signs were taken and stable. The patient reported that Valium was taken prior to the procedure. The patient was brought to the procedure room and placed in the prone position on the table. A pillow was placed under the abdomen in order to flatten the lumbar lordosis. The back was prepped with ChloraPrep and sterilely draped. All personnel in the operating room were dressed in appropriate attire including surgical scrubs, head and shoe covers. This was to ensure sterility while in the treatment room. During the time fluoroscopy was in use, all personnel in the operating room wore lead fung with thyroid collars. Sterile technique was used during the procedure. The fluoroscope was placed for the right transforaminal epidural steroid injection. There was no sign of infection at the skin site for needle insertion. The skin was anesthetized with 2% lidocaine with a 27 gauge 1-1/2 inch needle. Then a 22 gauge 3-1/2 inch spinal needle, advanced to the right S1. Under direct fluoroscopic guidance needle position was verified in three views; AP, oblique and lateral, with 0.2 cubic centimeters increments of Isovue- 200 dye. No intravascular flow pattern was observed under live fluoroscopy. Then 12 milligrams of Celestone was slowly injected after negative aspiration of heme, cerebrospinal fluid and no paresthesias were noted. The needle was cleared prior to removal from the skin. No adverse reactions were noted. The patient was brought to the recovery room awake and in good condition by my staff. The patient was monitored and discharge instructions were given after a brief stay in the recovery area. Both oral and written discharge and follow up instructions were given. The patient will follow up in the clinic in 3-4 weeks post procedure to evaluate the efficacy. The patient verbalized understanding including understanding of those signs and symptoms that would require emergency care and knows how to contact the office if there are any problems or questions in the meantime. PREOPERATIVE PAIN: 07/18. POSTOPERATIVE PAIN: 03/20. FOLLOWUP: Follow up in the pain clinic in 3 weeks. HOGLCHR / ALMASL /[id number]
== END 2017-11-21 15:15 | disposition home or self-care (01) ==
LOC: MW.SDS 12:21
PROVIDERS: ATTEND Anesthesiology
DX: M51.36 Other intervertebral disc degeneration, lumbar region (principal); M54.17 Radiculopathy, lumbosacral region; G89.29 Other chronic pain; M54.5 Low back pain; M51.34 Other intervertebral disc degeneration, thoracic region; M47.816 Spondylosis without myelopathy or radiculopathy, lumbar region; M79.1 Myalgia; M19.90 Unspecified osteoarthritis, unspecified site; F33.1 Major depressive disorder, recurrent, moderate; F41.9 Anxiety disorder, unspecified; J30.9 Allergic rhinitis, unspecified; Z88.0 Allergy status to penicillin; Z79.899 Other long term (current) drug therapy
CPT/HCPCS: 64483; J0702; J2795; Q9966

== ENCOUNTER 2018-04-02 07:23 | Emergency (ER) | payer BC, OTHER ==
--- NOTE | 2018-04-02 07:35 | EDM.PDOC ---
ED HPI GENERAL MEDICAL PROBLEM - General Chief Complaint: Respiratory Problem Stated Complaint: CHEST PAINS Time Seen by Provider: 04/02/18 07:32 - History of Present Illness INITIAL COMMENTS - FREE TEXT/NARRATIVE: HISTORY AND PHYSICAL: History of present illness: Patient 43-year-old white female who presents with concern of cough body aches tactile fever was recently evaluated and put on Tamiflu presumptively for influenza she states an influenza screening at that time was negative she presents now with persistence of her symptoms. She denies shortness of breath is been no nausea vomiting or diarrhea Review of systems: As per history of present illness and below otherwise all systems reviewed and negative. Past medical history: As per history of present illness and as reviewed below otherwise noncontributory. Surgical history: As per history of present illness and as reviewed below otherwise noncontributory. Social history: No reported history of drug or alcohol abuse. Family history: As per history of present illness and as reviewed below otherwise noncontributory. Physical exam: HEENT: Atraumatic, normocephalic, pupils reactive, negative for conjunctival pallor or scleral icterus, mucous membranes moist, throat clear, neck supple, nontender, trachea midline. Lungs: Clear to auscultation, breath sounds equal bilaterally, chest nontender. Heart: S1S2, regular, negative for clicks, rubs, or JVD. Abdomen: Soft, nondistended, nontender. Negative for masses or hepatosplenomegaly. Negative for costovertebral tenderness. Pelvis: Stable nontender. Genitourinary: Deferred. Rectal: Deferred. Extremities: Atraumatic, negative for cords or calf pain. Neurovascular unremarkable. Neuro: Awake, alert, oriented. Cranial nerves II through XII unremarkable. Cerebellum unremarkable. Motor and sensory unremarkable throughout. Exam nonfocal. Diagnostics: Influenza screen chest x-ray Therapeutics: None Impression: #1 viral syndrome Definitive disposition and diagnosis as appropriate pending reevaluation and review of above. generalized Pain Score (Numeric/FACES): 6 - Related Data Allergies Allergy/AdvReac Type Severity Reaction Status Date / Time Penicillins Allergy Rash Verified 04/02/18 07:27 Home Meds: Home Meds ALPRAZolam [Xanax] 1 - 2 mg PO TID PRN 07/11/16 [History] Gabapentin [Neurontin] 100 mg PO TID 07/11/16 [History] Zolpidem [Ambien] 10 mg PO BEDTIME PRN 07/11/16 [History] cloNIDine HCl [Catapres] 0.1 mg PO BEDTIME 07/11/16 [History] Esomeprazole [NexIUM] 40 mg PO ACBREAKFAST 02/19/17 [History] traZODone HCl [Trazodone HCl] 100 - 200 mg PO BEDTIME 02/19/17 [History] Desvenlafaxine [Khedezla] 50 mg PO BEDTIME 08/14/17 [History] busPIRone [Buspar] 15 mg PO BID 08/14/17 [History] traMADol [Ultram] 50 mg PO Q6H PRN 08/14/17 [History] Past Medical History - Past Health History Medical/Surgical History: Denies Medical/Surgical History HEENT History: Reports: Impaired Vision, Other (See Below) Other HEENT History: wears glasses/contacts Respiratory History: Reports: Bronchitis, Recurrent Gastrointestinal History: Reports: GERD, Other (See Below) Other Gastrointestinal History: hx C-diff in 2014, h/o gastric ulcer Genitourinary History: Reports: Renal Calculus PLASTIC TOOL MAKER History: Reports: Dysfunctional Uterine Bleeding, Other (See Below) Other PLASTIC TOOL MAKER History: ovarian cyst surgery, right Musculoskeletal History: Reports: Arthritis, Back Pain, Chronic Neurological History: Reports: Migraines, Vertigo Psychiatric History: Reports: Anxiety, Depression, Suicidal Ideation Other Psychiatric History: insomnia Endocrine/Metabolic History: Reports: Obesity/BMI 30+ Hematologic History: Reports: None - Infectious Disease History Infectious Disease History: Reports: Chicken Pox - Past Surgical History Head Surgeries/Procedures: Reports: None HEENT Surgical History: Reports: Naso-Sinus Surgery GI Surgical History: Reports: Appendectomy, Cholecystectomy, Colonoscopy Female Surgical History: Reports: Other (See Below) Other Female Surgeries/Procedures: laparotomy for ruptured ovarian cyst Endocrine Surgical History: Reports: None Neurological Surgical History: Reports: None Musculoskeletal Surgical History: Reports: Other (See Below) Other Musculoskeletal Surgeries/Procedures:: R foot peroneus longus tendon repair Social & Family History - Family History Family Medical History: Noncontributory - Tobacco Use Smoking Status *Q: Current Some Day Smoker Years of Tobacco use: 1 Packs/Tins Daily: 0 - Caffeine Use Caffeine Use: Reports: Coffee - Recreational Drug Use Recreational Drug Use: No ED ROS GENERAL - Review of Systems Review Of Systems: ROS reveals no pertinent complaints other than HPI. ED EXAM, GENERAL - Physical Exam Exam: See Below (See dictation) Course - Vital Signs Last Recorded V/S: Last Vital Signs Temp 36.2 C 04/02/18 07:24 Pulse 90 04/02/18 07:24 Resp 20 04/02/18 07:24 BP 97/70 04/02/18 07:24 Pulse Ox 96 04/02/18 07:24 - Orders/Labs/Meds Orders: Active Orders 24 hr Category Date Time Status Chest 2V [CR] Stat Exams 04/02/18 07:32 Ordered INFLUENZA A+B AG SCREEN [RM] Stat Lab 04/02/18 07:32 Ordered Departure - Departure Time of Disposition: 07:33 Disposition: Home, Self-Care 01 Condition: Good Clinical Impression: Viral syndrome - Discharge Information Additional Instructions: The following information is given to patients seen in the emergency department who are being discharged to home. This information is to outline your options for follow-up care. We provide all patients seen in our emergency department with a follow-up referral. The need for follow-up, as well as the timing and circumstances, are variable depending upon the specifics of your emergency department visit. If you don't have a primary care physician on staff, we will provide you with a referral. We always advise you to contact your personal physician following an emergency department visit to inform them of the circumstance of the visit and for follow-up with them and/or the need for any referrals to a consulting specialist. The emergency department will also refer you to a specialist when appropriate. This referral assures that you have the opportunity for followup care with a specialist. All of these measure are taken in an effort to provide you with optimal care, which includes your followup. Under all circumstances we always encourage you to contact your private physician who remains a resource for coordinating your care. When calling for followup care, please make the office aware that this follow-up is from your recent emergency room visit. If for any reason you are refused follow-up, please contact the [facility] emergency department at and asked to speak to the emergency department charge nurse. Push fluids Motrin/Tylenol as directed follow-up private medical doctor as needed as discussed and return as needed as discussed - My Orders Last 24 Hours: My Active Orders 04/02/18 07:32 Chest 2V [CR] Stat INFLUENZA A+B AG SCREEN [RM] Stat - Assessment/Plan Last 24 Hours: My Active Orders 04/02/18 07:32 Chest 2V [CR] Stat INFLUENZA A+B AG SCREEN [RM] Stat
--- NOTE | 2018-04-02 08:11 | CR ---
INDICATION: Pain and shortness of breath. TECHNIQUE: Two views of the chest PA and lateral. COMPARISON: 01/16/2017. FINDINGS: The heart and mediastinum are unchanged. There is linear density in the left lower lobe consistent with discoid atelectasis or fibro atelectasis. No consolidations or pleural effusions. Trachea is midline. IMPRESSION: No evidence of acute disease. Dictated by David Fisher MD @ Apr 02 2018 8:06AM Signed by Dr. David Fisher @ Apr 02 2018 8:08AM
[2018-04-02 08:35] VITALS: BP 100/66
== END 2018-04-02 08:35 | disposition home or self-care (01) ==
LOC: MW.ED 07:23
DX: B34.9 Viral infection, unspecified (principal); E66.9 Obesity, unspecified; F41.9 Anxiety disorder, unspecified; F32.9 Major depressive disorder, single episode, unspecified; F17.210 Nicotine dependence, cigarettes, uncomplicated; Z90.49 Acquired absence of other specified parts of digestive tract; Z88.0 Allergy status to penicillin; Z79.899 Other long term (current) drug therapy
CPT/HCPCS: 71046; 71046-26; 87804; 99283

== ENCOUNTER 2018-05-22 11:57 | Day surgery (SDC) | payer BC, OTHER ==
[2018-05-22] MEDS ORDERED: Iopamidol 408 MG/ML 50 ML SDV ONE (12:24)
[2018-05-22] MEDS ORDERED: Ropivacaine 0.5% 5 MG/ML 30 ML SDV ONE (12:24)
[2018-05-22] MEDS ORDERED: Betamethasone Acetate/Betamethasone Sod Phosphate 30 MG/5 ML MDV ONE (12:24)
[2018-05-22] MEDS ORDERED: Lidocaine 2% 5 ML SDV ONE (12:24)
--- NOTE | 2018-05-22 18:07 | OR ---
SURGEON: Elizabeth Powers D.O. DATE OF PROCEDURE: 05/22/2018 OR STAFF PRESENT: 1. Maira Mcdaniel RN. 2. Nette Olmedo RN. 3. RT Kirsten. WOUND CLASS: I. PREOPERATIVE DIAGNOSES: 1. Lumbar degenerative disk disease, L4-5, L5-S1. 2. Lumbar radiculopathy. 3. Lumbar spinal stenosis. POSTOPERATIVE DIAGNOSES: 1. Lumbar degenerative disk disease, L4-5, L5-S1. 2. Lumbar radiculopathy. 3. Lumbar spinal stenosis. PROCEDURES PERFORMED: 1. Caudal epidural steroid injection. 2. Fluoroscopic guidance for needle placement. 3. Local with oral valium for sedation. SCREENING QUESTIONS: The patient answered "no" to all of the following questions: 1. Are you allergic to latex? 2. Do you have a bleeding disorder? 3. Do you have any current local or systemic infections? 4. Are you taking any anti-inflammatories or blood thinners? 5. Do you have any joint replacements, heart valve replacements, or a pacemaker? DESCRIPTION OF PROCEDURE: The patient had the procedure thoroughly explained including all possible risks, benefits and alternatives. Consent was signed in my clinic indicating understanding and willingness to proceed. The patient presented to [facility] and was escorted to the dressing room to disrobe and change into a hospital gown. Preoperative vital signs were taken and stable. The patient reported that Valium was taken prior to the procedure. The patient was brought back to the procedure room and placed in the prone position on the procedure room table. A pillow was placed under the hips in order to flatten the lumbar lordosis. The back was prepped with ChloraPrep and sterilely draped. All personnel in the operating room were dressed in appropriate attire including surgical scrubs, head and shoe covers. This was to ensure sterility while in the treatment room. During the time fluoroscopy was in use, all personnel in the operating room wore lead fung with thyroid collars. Sterile technique was used throughout the procedure. The patient was awake and conversant throughout the procedure. There was no evidence of infection at the site of needle insertion. Skeletal landmarks were identified under fluoroscopy for the caudal epidural. Skin was anesthetized with 2% lidocaine with a sterile 27-gauge 1.5 inch needle. Then, a 20-gauge Tuohy epidural needle was placed in the epidural space with loss of resistance technique under fluoroscopic guidance. No heme, cerebrospinal fluid, or paresthesias were noted. Isovue-200 contrast dye was injected in 0.2 cubic centimeter increments and seen to outline the epidural space in both AP and lateral views. There was no intravascular flow pattern observed under live fluoroscopy. Then, 12 milligrams of Celestone was slowly injected after negative aspiration. The patient tolerated the procedure well. Vital signs were stable during and after the procedure. The staff escorted the patient to the recovery area and the patient was released in stable condition after a brief stay in the recovery room monitored by the nurse. The patient was given both oral and written discharge and follow up instructions with recommendation to follow up given for 2-3 weeks. The patient voiced understanding including understanding of those signs and symptoms that would require emergency care. The patient knows how to contact the office if there are any additional problems or questions in the meantime. PREOPERATIVE PAIN: 7/10. POSTOPERATIVE PAIN: 3/10. FOLLOWUP: Follow up in the pain clinic in 3 weeks. MALU / ADILIA /[id number] AN
== END 2018-05-22 13:32 ==
LOC: MW.SDS 11:57
PROVIDERS: ATTEND Anesthesiology
DX: G89.4 Chronic pain syndrome (principal); M51.16 Intervertebral disc disorders with radiculopathy, lumbar region; M48.061 Spinal stenosis, lumbar region without neurogenic claudication; M51.34 Other intervertebral disc degeneration, thoracic region; M47.26 Other spondylosis with radiculopathy, lumbar region; F41.9 Anxiety disorder, unspecified; F33.1 Major depressive disorder, recurrent, moderate; K21.9 Gastro-esophageal reflux disease without esophagitis; G47.00 Insomnia, unspecified; M79.18 Myalgia, other site; Z79.899 Other long term (current) drug therapy; Z88.0 Allergy status to penicillin
CPT/HCPCS: 62323; J0702; J2795; Q9966; J2001

== ENCOUNTER 2018-07-24 10:41 | Day surgery (SDC) | payer BC, OTHER ==
[~2018-07-24 10:41] MED LIST changes: -Betamethasone Acetate/Betamethasone Sod Phosphate 30 MG/5 ML MDV ONE; -Iopamidol 408 MG/ML 50 ML SDV ONE; -Ropivacaine 0.5% 5 MG/ML 30 ML SDV ONE; -Sodium Bicarbonate 8.4% 50 MEQ/50 ML SDV ONE
[2018-07-24] MEDS ORDERED: DEXTROSE IV ONE (10:42)
[2018-07-24] MEDS ORDERED: CLINDAMYCIN PHOSPHATE IV ONE (10:42)
--- NOTE | 2018-07-24 12:28 | PCM.PREANE ---
Preanesthetic Assessment - Anesthesia/Transfusion/Family Hx Anesthesia History: Prior Anesthesia Without Reaction Family History of Anesthesia Reaction: No Transfusion History: No Prior Transfusion(s) Intubation History: Unknown - Review of Systems General: No Symptoms Pulmonary: No Symptoms Cardiovascular: No Symptoms Gastrointestinal: No Symptoms Other: Reports: None - Physical Assessment NPO Status Date: 07/23/18 Height: 5 ft 11 in Weight: 106.141 kg ASA Class: 2 Mental Status: Alert & Oriented x3 Airway Class: Mallampati = 1 Dentition: Reports: Normal Dentition ROM/Head Extension: Full Lungs: Clear to Auscultation, Normal Respiratory Effort Cardiovascular: Regular Rate, Regular Rhythm - Allergies Allergies/Adverse Reactions: Allergies Allergy/AdvReac Type Severity Reaction Status Date / Time Penicillins Allergy Rash Verified 07/22/18 11:10 - Blood Blood Available: No - Anesthesia Plan Pre-Op Medication Ordered: None - Acknowledgements Anesthesia Type Planned: MAC Pt an Appropriate Candidate for the Planned Anesthesia: Yes Alternatives and Risks of Anesthesia Discussed w Pt/Guardian: Yes Pt/Guardian Understands and Agrees with Anesthesia Plan: Yes Additional Comments: PMH: anx/dep/panic, chronic pain syndromes, benign positional vertigo, pt states she has been tested for JANENE and tests were negative PLAN: MAC PreAnesthesia Questionnaire - Past Health History Medical/Surgical History: Denies Medical/Surgical History HEENT History: Reports: Allergic Rhinitis, Impaired Vision, Other (See Below) Other HEENT History: wears glasses/contacts Cardiovascular History: Reports: None Respiratory History: Reports: Bronchitis, Recurrent Gastrointestinal History: Reports: GERD, Other (See Below) Other Gastrointestinal History: hx C-diff in 2014, h/o gastric ulcer Genitourinary History: Reports: Renal Calculus 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: Musculoskeletal History: Reports: Arthritis, Back Pain, Chronic, Other (See Below) Other Musculoskeletal History: DDD, Chronic pain syndrome Neurological History: Reports: Migraines, Vertigo Psychiatric History: Reports: Anxiety, Depression Other Psychiatric History: insomnia Endocrine/Metabolic History: Reports: Obesity/BMI 30+ Hematologic History: Reports: None Immunologic History: Reports: None Oncologic (Cancer) History: Reports: None Dermatologic History: Reports: None - Infectious Disease History Infectious Disease History: Reports: Chicken Pox - Past Surgical History Head Surgeries/Procedures: Reports: None HEENT Surgical History: Reports: Naso-Sinus Surgery, Oral Surgery Cardiovascular Surgical History: Reports: None Respiratory Surgical History: Reports: None GI Surgical History: Reports: Appendectomy, Cholecystectomy, Colonoscopy Female Surgical History: Reports: Hysterectomy, Other (See Below) Other Female Surgeries/Procedures: laparotomy for ruptured ovarian cyst Endocrine Surgical History: Reports: None Neurological Surgical History: Reports: None Musculoskeletal Surgical History: Reports: Other (See Below) Other Musculoskeletal Surgeries/Procedures:: R foot peroneus longus tendon repair Oncologic Surgical History: Reports: None Dermatological Surgical History: Reports: None - SUBSTANCE USE Smoking Status *Q: Former Smoker Recreational Drug Use History: No - HOME MEDS Home Medications: Home Meds ALPRAZolam [Xanax] 1 mg PO BID PRN 07/11/16 [History] Esomeprazole [NexIUM] 40 mg PO ACBREAKFAST 02/19/17 [History] traZODone HCl [Trazodone HCl] 1 - 2 tab PO BEDTIME 02/19/17 [History] busPIRone [Buspar] 10 mg PO BEDTIME 08/14/17 [History] traMADol [Ultram] 50 mg PO Q6H PRN 08/14/17 [History] Cyclobenzaprine [Flexeril] 10 mg PO BEDTIME PRN 04/02/18 [History] Gabapentin [Neurontin] 2 tab PO ACBREAKFAST 04/02/18 [History] Vortioxetine Hydrobromide [Trintellix] 10 mg PO DAILY 04/02/18 [History] Albuterol Sulfate [Proair Hfa] 1 - 2 puff INH ASDIRECTED PRN 07/22/18 [History] Baclofen 1 - 2 tab PO TID PRN 07/22/18 [History] Desvenlafaxine Succinate [Desvenlafaxine Succinate ER] 1 tab PO DAILY 07/22/18 [ History] Diclofenac Sodium [Voltaren 1% Gel] 1 applic TOP ASDIRECTED PRN 07/22/18 [ History] Estradiol [Estrace] 2 mg PO DAILY 07/22/18 [History] Fluticasone Propionate [Flonase Allergy Relief] 1 spray NASBOTH BID 07/22/18 [ History] Fluticasone Propionate [Flovent HFA] 2 puff INH BID 07/22/18 [History] Gabapentin [Neurontin] 4 tab PO BEDTIME 07/22/18 [History] Ketamine Hcl Powder 1 applic TOP ASDIRECTED PRN 07/22/18 [History] Lidocaine/Prilocaine [Lidocaine-Prilocaine Cream] 1 applic TOP ASDIRECTED PRN [History] Meclizine HCl 1 tab PO TID PRN 07/22/18 [History] Montelukast Sodium 10 mg PO DAILY 07/22/18 [History] SUMAtriptan Succinate [Imitrex] 100 mg PO ASDIRECTED PRN 07/22/18 [History] Zolpidem Tartrate 10 mg PO BEDTIME PRN 07/22/18 [History] diazePAM [Valium] 1 - 2 tab PO ASDIRECTED PRN 07/22/18 [History] oxyCODONE HCl/Acetaminophen [Endocet 7.5-325 mg Tablet] 1 tab PO BEDTIME PRN [History] - CURRENT (IN HOUSE) MEDS Current Meds: Current Medications Discontinued Medications Lidocaine HCl (Xylocaine-Mpf 1%) Confirm Administered Dose 5 mls @ as directed .ROUTE .STK-MED ONE Stop: 07/24/18 09:54 Lidocaine (Xylocaine-Mpf 2%) Confirm Administered Dose 10 ml .ROUTE .STK-MED ONE Stop: 07/24/18 09:54
[2018-07-24] MEDS ORDERED: Lidocaine 2% 5 ML SDV ONE (12:42)
[2018-07-24] MEDS ORDERED: Propofol 200 MG/20 ML SDV ONE (12:43)
[2018-07-24] MEDS ORDERED: Midazolam 1 MG/ML 2 ML SDV ONE (12:43)
[2018-07-24] MEDS ORDERED: fentaNYL 100 MCG/2 ML SDV ONE (12:43)
[2018-07-24] MEDS ORDERED: Lactated Ringers 1,000 ML IV SCH (13:30)
[2018-07-24] MEDS ORDERED: Acetaminophen/HYDROcodone 325-10 MG Tab PO ONE (14:37)
[2018-07-24] MEDS ORDERED: Acetaminophen/HYDROcodone 325-10 MG Tab ONE (14:44)
--- NOTE | 2018-07-24 15:35 | CR ---
EXAMINATION: Thoracic spine HISTORY: Spinal cord stimulator COMPARISON: None TECHNIQUE: 7 operative fluoroscopic images obtained. FINDINGS/IMPRESSION: Operative control films demonstrate placement of a epidural lead within the region of the lower thoracic spine.
[2018-07-24 16:03] VITALS: BP 111/56
--- NOTE | 2018-07-24 16:03 | PCM48HPAN ---
Post Anesthesia Note - EVALUATION WITHIN 48HRS OF ANESTHETIC Vital Signs in Normal Range: Yes Patient Participated in Evaluation: Yes Respiratory Function Stable: Yes Airway Patent: Yes Cardiovascular Function Stable: Yes Hydration Status Stable: Yes Pain Control Satisfactory: Yes Nausea and Vomiting Control Satisfactory: Yes Mental Status Recovered: Yes Pulse Rate: 64 SaO2: 98 Resp Rate: 16 Blood Pressure: 111/56
--- NOTE | 2018-07-24 22:04 | OR ---
SURGEON: Elizabeth Powers D.O. DATE OF PROCEDURE: 07/24/2018 OPERATING ROOM STAFF PRESENT: 1. indoor plant technician, Pam Auguste RN. 2. Odin Hickey RN. 3. Nette Olmedo RN. 4. Maira Mcdaniel, RN. KITCHEN STEWARD: Chioma Mcghee. CONSERVATION WORKER: Aggie Gonzáles. PREOPERATIVE DIAGNOSES: 1. Chronic pain syndrome. 2. Lumbar radiculopathy. 3. Intractable low back pain. 4. Neuropathic pain. POSTOPERATIVE DIAGNOSES: 1. Chronic pain syndrome. 2. Lumbar radiculopathy. 3. Intractable low back pain. 4. Neuropathic pain. PROCEDURE PERFORMED: 1. [employer] Infinion 16 Contact trial lead placement to the top of T8 x2 2. Fluoroscopic guidance for needle placement. ANESTHESIA: Local MAC. PREOPERATIVE PAIN: 8 out of 10. POSTOPERATIVE PAIN: 0 out of 10 with spinal cord stimulator on. SCREENING QUESTIONS: The patient answered no to all the following questions: 1. Are you allergic to iodine, Betadine, or latex? 2. Do you have a bleeding disorder? 3. Are you on anti-inflammatories or blood thinners? 4. Are you ? 5. Do you have any current local or systemic infections? 6. Do you have any joint replacements, heart valve replacements or a pacemaker? DESCRIPTION OF PROCEDURE: The patient had the procedure thoroughly explained including risks, benefits, and alternatives. Consent was signed in my clinic indicating understanding and willingness to proceed. The patient presented to [facility] and was escorted to the dressing room to disrobe and change into a hospital gown. Preoperative history and screening were performed by the nurse. Vital signs were taken and stable. The patient was set up with an IV prior to the procedure. The patient was brought back to the procedure room and placed in the prone position on the procedure room table. A pillow was placed under the abdomen in order to flatten the lumbar lordosis. The patient was positioned comfortably and there was no evidence of infection at the sites of needle insertion. The back was prepped with ChloraPrep and sterilely draped. All personnel in the operating room were dressed in appropriate attire including surgical scrubs, head and shoe covers. This was to ensure sterility while in the treatment room. During the time fluoroscopy was in use, all personnel in the operating room wore lead fung with thyroid collars. Sterile technique was used during the procedure. Prior to the start of the procedure, prophylactic antibiotic was administered IV. Skeletal landmarks were identified under fluoroscopic guidance. At all insertion sites, the skin and soft tissues were anesthetized with 2% lidocaine preservative-free with a sterile 27-gauge 1-1/2 inch needle. The epidural space was entered with a 14-gauge Tuohy epidural needle with loss-of- resistance technique.Under live fluoroscopic guidance, the 16 standard [employer] contact lead electrodes were advanced approximately to the midline at the top of the T7 vertebral body. First placed on the left and then the right side. The right lead was noted to be placed anterior and attempted repositoning to posterior epidural space was done but lead position was again anterior and right lead was then removed . The left sided lead was then placed in the midline at bottom of T7 vertebral body.. with coverage of all areas of patinets low back and leg pain. No CSF, no heme , no paresthesia were noted. Testing by the neuromodulation clinical specialist revealed appropriate coverage of the patient's normal areas of pain. The lead was then secured to the skin with occlusive dressing. No complications were noted throughout the procedure and vital signs were stable. Then the patient was brought to the recovery room in stable condition. At that time, the patient had additional stimulation patterns programmed which covered all the normal areas of pain. The patient tolerated the procedure well and was released home with postoperative instructions for followup in the clinic by phone in the morning. The patient will fill out a pain diary throughout the week of the spinal cord stimulator trial. Additionally, prior to discharge, postoperative instructions were given to the patient and the patient voiced understanding, including understanding of those signs and symptoms that would require emergency care. MALU / ADILIA /[id number] AN
== END 2018-07-24 16:10 ==
LOC: MW.SDS 10:41
PROVIDERS: ATTEND Anesthesiology
DX: G89.4 Chronic pain syndrome (principal); M54.5 Low back pain; M51.17 Intervertebral disc disorders with radiculopathy, lumbosacral region; M47.26 Other spondylosis with radiculopathy, lumbar region; M51.34 Other intervertebral disc degeneration, thoracic region; M79.18 Myalgia, other site; M79.2 Neuralgia and neuritis, unspecified; F41.9 Anxiety disorder, unspecified; F32.9 Major depressive disorder, single episode, unspecified; F41.0 Panic disorder [episodic paroxysmal anxiety]; K21.9 Gastro-esophageal reflux disease without esophagitis; Z88.0 Allergy status to penicillin; Z87.891 Personal history of nicotine dependence; Z79.51 Long term (current) use of inhaled steroids; Z79.899 Other long term (current) drug therapy
CPT/HCPCS: 63650; 76000; A9270; J2001; J2250; J2704; J3010; J3490; J7120; 01936; J0690

== ENCOUNTER 2018-09-23 13:30 | Emergency (ER) | payer BC, OTHER ==
--- NOTE | 2018-09-23 14:33 | EDM.PDOC ---
ED HPI GENERAL MEDICAL PROBLEM - General Chief Complaint: General Stated Complaint: sent from [facility] Time Seen by Provider: 09/23/18 14:05 Source of Information: Reports: Patient History Limitations: Reports: No Limitations - History of Present Illness INITIAL COMMENTS - FREE TEXT/NARRATIVE: HISTORY AND PHYSICAL: History of present illness: Presents from the family practice clinic of Kizzy Nikolaiaquiles at [facility]. She presents here and, earlier this morning, there with a history of nasal congestion and cough as well as subjective fever. No headache, minimal rhinorrhea. No ill contacts. She did not take her temperature at home as she does not have a thermometer. On September 18, 2018 she had a nerve stimulator placed in her back for chronic back pain. Her wounds are dry and well -healed. At the [facility], a chest x-ray was clear without evidence of acute cardiopulmonary process. Her white count was 4.4, hemoglobin 14.1 and hematocrit 40.3. Her UA was admitted within normal limits. An influenza screen was negative. During the interview and exam, she was noted to have a heart rate in the 70s, and oxygen saturation 97-99% on room air while lying down. No dyspnea or shortness of breath. Review of systems: As per history of present illness and below otherwise all systems reviewed and negative. Past medical history: As per history of present illness and as reviewed below otherwise noncontributory. Surgical history: As per history of present illness and as reviewed below otherwise noncontributory. Social history: No reported history of drug or alcohol abuse. Family history: As per history of present illness and as reviewed below otherwise noncontributory. Physical exam: HEENT: Atraumatic, normocephalic, pupils reactive, negative for conjunctival pallor or scleral icterus, mucous membranes moist, throat clear, neck supple, nontender, trachea midline. Lungs: Clear to auscultation, breath sounds equal bilaterally, chest nontender. Heart: S1S2, regular, negative for clicks, rubs, or JVD. Abdomen: Soft, nondistended, nontender. Negative for masses or hepatosplenomegaly. Negative for costovertebral tenderness. Pelvis: Stable nontender. Genitourinary: Deferred. Rectal: Deferred. Extremities: Atraumatic, negative for cords or calf pain. Neurovascular unremarkable. Neuro: Awake, alert, oriented. Cranial nerves II through XII unremarkable. Cerebellum unremarkable. Motor and sensory unremarkable throughout. Exam nonfocal. Diagnostics: [] Therapeutics: [] Impression: [] Plan: [] Definitive disposition and diagnosis as appropriate pending reevaluation and review of above. Left Back Pain Score (Numeric/FACES): 9 - Related Data Allergies Allergy/AdvReac Type Severity Reaction Status Date / Time Penicillins Allergy Rash Verified 09/23/18 13:52 Home Meds: Home Meds ALPRAZolam [Xanax] 1 mg PO BID PRN 07/11/16 [History] Esomeprazole [NexIUM] 40 mg PO ACBREAKFAST 02/19/17 [History] traZODone HCl [Trazodone HCl] 1 - 2 tab PO BEDTIME 02/19/17 [History] busPIRone [Buspar] 30 mg PO BID 08/14/17 [History] traMADol [Ultram] 50 mg PO Q6H PRN 08/14/17 [History] Cyclobenzaprine [Flexeril] 10 mg PO BEDTIME PRN 04/02/18 [History] Gabapentin [Neurontin] 2 tab PO ACBREAKFAST 04/02/18 [History] Vortioxetine Hydrobromide [Trintellix] 10 mg PO DAILY 04/02/18 [History] Albuterol Sulfate [Proair Hfa] 1 - 2 puff INH ASDIRECTED PRN 07/22/18 [History] Baclofen 1 - 2 tab PO TID PRN 07/22/18 [History] Diclofenac Sodium [Voltaren 1% Gel] 1 applic TOP ASDIRECTED PRN 07/22/18 [ History] Estradiol [Estrace] 2 mg PO DAILY 07/22/18 [History] Fluticasone Propionate [Flonase Allergy Relief] 1 spray NASBOTH BID 07/22/18 [ History] Fluticasone Propionate [Flovent HFA] 2 puff INH BID 07/22/18 [History] Gabapentin [Neurontin] 4 tab PO BEDTIME 07/22/18 [History] Ketamine Hcl Powder 1 applic TOP ASDIRECTED PRN 07/22/18 [History] Lidocaine/Prilocaine [Lidocaine-Prilocaine Cream] 1 applic TOP ASDIRECTED PRN [History] Meclizine HCl 1 tab PO TID PRN 07/22/18 [History] Montelukast Sodium 10 mg PO DAILY 07/22/18 [History] SUMAtriptan Succinate [Imitrex] 100 mg PO ASDIRECTED PRN 07/22/18 [History] Zolpidem Tartrate 10 mg PO BEDTIME PRN 07/22/18 [History] diazePAM [Valium] 1 - 2 tab PO ASDIRECTED PRN 07/22/18 [History] oxyCODONE HCl/Acetaminophen [Endocet 7.5-325 mg Tablet] 1 tab PO BEDTIME PRN [History] guaiFENesin/Codeine Phosphate [Cheratussin AC Syrup] 10 ml PO Q6HR PRN #1 bottle 09/23/18 [Rx] Past Medical History - Past Health History Medical/Surgical History: Denies Medical/Surgical History HEENT History: Reports: Allergic Rhinitis, Impaired Vision, Other (See Below) Other HEENT History: wears glasses/contacts Cardiovascular History: Reports: None Respiratory History: Reports: Bronchitis, Recurrent Gastrointestinal History: Reports: GERD, Other (See Below) Other Gastrointestinal History: hx C-diff in 2014, h/o gastric ulcer Genitourinary History: Reports: Renal Calculus [employer] History: Musculoskeletal History: Reports: Arthritis, Back Pain, Chronic, Other (See Below) Other Musculoskeletal History: DDD, Chronic pain syndrome Neurological History: Reports: Migraines, Vertigo Psychiatric History: Reports: Anxiety, Depression Other Psychiatric History: insomnia Endocrine/Metabolic History: Reports: Obesity/BMI 30+ Hematologic History: Reports: None Immunologic History: Reports: None Oncologic (Cancer) History: Reports: None Dermatologic History: Reports: None - Infectious Disease History Infectious Disease History: Reports: Chicken Pox - Past Surgical History Head Surgeries/Procedures: Reports: None HEENT Surgical History: Reports: Naso-Sinus Surgery, Oral Surgery Cardiovascular Surgical History: Reports: None Respiratory Surgical History: Reports: None GI Surgical History: Reports: Appendectomy, Cholecystectomy, Colonoscopy Female Surgical History: Reports: Hysterectomy, Other (See Below) Other Female Surgeries/Procedures: laparotomy for ruptured ovarian cyst Endocrine Surgical History: Reports: None Neurological Surgical History: Reports: None Musculoskeletal Surgical History: Reports: Other (See Below) Other Musculoskeletal Surgeries/Procedures:: R foot peroneus longus tendon repair Oncologic Surgical History: Reports: None Dermatological Surgical History: Reports: None Social & Family History - Family History Family Medical History: Noncontributory - Tobacco Use Smoking Status *Q: Former Smoker Used Tobacco, but Quit: Yes Month/Year Tobacco Last Used: august - Caffeine Use Caffeine Use: Reports: Coffee - Recreational Drug Use Recreational Drug Use: No ED ROS GENERAL - Review of Systems Review Of Systems: ROS reveals no pertinent complaints other than HPI. ED EXAM, GENERAL - Physical Exam Exam: See Below Exam Limited By: No Limitations General Appearance: Alert, No Apparent Distress Ears: Normal External Exam, Normal TMs Nose: Normal Inspection Throat/Mouth: Normal Inspection, Other (Mild pharyngeal erythema) Head: Atraumatic, Normocephalic Neck: Normal Inspection, Supple, Non-Tender, Full Range of Motion. No: Lymphadenopathy (L), Lymphadenopathy (R) Respiratory/Chest: No Respiratory Distress, Lungs Clear, Normal Breath Sounds Cardiovascular: Normal Peripheral Pulses, Regular Rate, Rhythm, No Murmur GI/Abdominal: Soft Back Exam: Normal Inspection, Other (2 incisions are intact, granulating with no surrounding firmness, erythema swelling or exudates). No: CVA Tenderness (L) , CVA Tenderness (R) Extremities: Normal Inspection, Normal Range of Motion Neurological: Alert, Oriented Psychiatric: Normal Affect, Normal Mood Skin Exam: Warm, Dry, Intact, Normal Color, No Rash Lymphatic: No Adenopathy Course - Vital Signs Last Recorded V/S: Last Vital Signs Temp 35.8 C 09/23/18 13:41 Pulse 81 09/23/18 13:41 Resp 18 09/23/18 13:41 BP 101/73 09/23/18 13:41 Pulse Ox 95 09/23/18 13:41 - Orders/Labs/Meds Orders: Active Orders 24 hr Category Date Time Status CULTURE STREP A CONFIRMATION [RM] Stat Lab 09/23/18 14:13 Results STREP SCRN A RAPID W CULT CONF [RM] Stat Lab 09/23/18 14:18 Ordered Labs: Laboratory Tests 09/23/18 Range/Units 14:12 Lactate 0.8 (0.20-2.00) mmol/L Departure - Departure Time of Disposition: 14:34 Disposition: Home, Self-Care 01 Condition: Good Clinical Impression: Bronchitis Sinusitis Qualifiers: Sinusitis location: maxillary Chronicity: acute Recurrence: non-recurrent Qualified Code(s): J01.00 - Acute maxillary sinusitis, unspecified - Discharge Information Referrals: Colin Rangel MD [Primary Care Provider] - Forms: ED Department Discharge Additional Instructions: The following information is given to patients seen in the emergency department who are being discharged to home. This information is to outline your options for follow-up care. We provide all patients seen in our emergency department with a follow-up referral. The need for follow-up, as well as the timing and circumstances, are variable depending upon the specifics of your emergency department visit. If you don't have a primary care physician on staff, we will provide you with a referral. We always advise you to contact your personal physician following an emergency department visit to inform them of the circumstance of the visit and for follow-up with them and/or the need for any referrals to a consulting specialist. The emergency department will also refer you to a specialist when appropriate. This referral assures that you have the opportunity for follow-up care with a specialist. All of these measure are taken in an effort to provide you with optimal care, which includes your follow-up. Under all circumstances we always encourage you to contact your private physician who remains a resource for coordinating your care. When calling for follow-up care, please make the office aware that this follow-up is from your recent emergency room visit. If for any reason you are refused follow-up, please contact the [facility] Emergency Department at and asked to speak to the emergency department charge nurse. 1. Sinus toileting instructions: Nasal saline rinses twice daily followed by Nasal Decongestant such as Afrin. Nasal steroid such as Flonase or Nasacort 2 sprays each nostril at bedtime. 2. Follow-up with your surgeon and primary care provider. 3. Cough syrup 2 teaspoons every 4-6 hours as needed. No driving or operating machinery. - My Orders Last 24 Hours: My Active Orders 09/23/18 14:13 CULTURE STREP A CONFIRMATION [RM] Stat 09/23/18 14:18 STREP SCRN A RAPID W CULT CONF [] Stat - Assessment/Plan Last 24 Hours: My Active Orders 09/23/18 14:13 CULTURE STREP A CONFIRMATION [] Stat 09/23/18 14:18 STREP SCRN A RAPID W CULT CONF [RM] Stat
[2018-09-23 15:37] VITALS: BP 107/76
== END 2018-09-23 15:32 | disposition home or self-care (01) ==
LOC: MW.ED 13:30
DX: J01.00 Acute maxillary sinusitis, unspecified (principal); J40 Bronchitis, not specified as acute or chronic; K21.9 Gastro-esophageal reflux disease without esophagitis; F41.9 Anxiety disorder, unspecified; F32.9 Major depressive disorder, single episode, unspecified; Z79.899 Other long term (current) drug therapy; E66.9 Obesity, unspecified; Z87.891 Personal history of nicotine dependence; Z68.30 Body mass index [BMI] 30.0-30.9, adult
CPT/HCPCS: 83605; 87081; 87880-QW; 99283

== ENCOUNTER 2019-03-19 10:56 | Emergency (ER) | payer BC, OTHER ==
[2019-03-19] MEDS ORDERED: Metoclopramide 10 MG/2 ML SDV IVPUSH ONE (12:00)
[2019-03-19] MEDS ORDERED: Sodium Chloride 0.9% 1,000 ML IV ONE (12:00)
--- NOTE | 2019-03-19 12:50 | EDM.PDOC ---
ED [facility] GENERAL MEDICAL PROBLEM - General Chief Complaint: General Stated Complaint: LIGHTHEADED,DIZZINESS Time Seen by Provider: 03/19/19 11:50 Source of Information: Reports: Patient History Limitations: Reports: No Limitations - History of Present Illness INITIAL COMMENTS - FREE TEXT/NARRATIVE: Patient is a 44-year-old female with past medical history of several back surgeries this past year. Patient reports acute onset of dizziness while at work today. Patient states she feels like the room is spinning and reports associated nausea. Symptoms worse when she moves her eyes. Patient feels some relief when she is lying down. Patient denies any chest pain, shortness of breath, vomiting, recent illnesses. Patient states that she is never had the symptoms before. Patient denies any focal neurologic deficits. In addition to that documented in the HPI above, the additional ROS was obtained : Constitutional: Denies fevers or chills Eyes: Denies vision changes ENMT: Denies sore throat CV: Denies chest pain Resp: Denies SOB GI: Denies vomiting or diarrhea : Denies painful urination MSK: Denies recent trauma Skin: Denies new rashes Neuro: Denies new numbness or tingling or weakness Endocrine: Denies unexpected weight loss Heme: Denies bleeding disorders I have reviewed the triage vital signs Const: Well nourished, well developed, appears stated age Eyes: PERRL, no conjunctival injection HENT: Dry mucous membranes. NCAT, Neck supple without meningismus CV: RRR, Warm, well-perfused extremities RESP: CTAB, Unlabored respiratory effort GI: soft, non-tender, non-distended, no masses MSK: No gross deformities appreciated Skin: Warm, dry. 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 Sensation and motor function of extremities intact. Psych: Appropriate mood and affect Assessment and plan Patient is a 44-year-old female presenting with a chief complaint of dizziness. Patient appears very dehydrated. Patient had labs and EKG. No acute abnormalities noted on these findings. Patient feels better after given Reglan and IV fluids. Dizziness has subsided. Broad differential diagnoses considered including stroke, ACS, cardiac arrhythmia, dehydration, anemia. Based on my results of labs and physical exam findings, I do not believe that the patient has any acute emergent pathology at this time. Signs and symptoms are not consistent with acute neurologic process. Will discharge patient home with strict return precautions. All questions addressed and answered. Patient agrees with plan. Lower Back Pain Score (Numeric/FACES): 3 - Related Data Allergies Allergy/AdvReac Type Severity Reaction Status Date / Time Penicillins Allergy Rash Verified 03/19/19 11:13 Home Meds: Home Meds ALPRAZolam [Xanax] 1 mg PO BID PRN 07/11/16 [History] Esomeprazole [NexIUM] 40 mg PO ACBREAKFAST 02/19/17 [History] traZODone HCl [Trazodone HCl] 1 - 2 tab PO BEDTIME 02/19/17 [History] busPIRone [Buspar] 30 mg PO BID 08/14/17 [History] traMADol [Ultram] 50 mg PO Q6H PRN 08/14/17 [History] Vortioxetine Hydrobromide [Trintellix] 10 mg PO DAILY 04/02/18 [History] Albuterol Sulfate [Proair Hfa] 1 - 2 puff INH ASDIRECTED PRN 07/22/18 [History] Diclofenac Sodium [Voltaren 1% Gel] 1 applic TOP ASDIRECTED PRN 07/22/18 [ History] Estradiol [Estrace] 2 mg PO DAILY 07/22/18 [History] Fluticasone Propionate [Flonase Allergy Relief] 1 spray NASBOTH BID 07/22/18 [ History] Fluticasone Propionate [Flovent HFA] 2 puff INH BID 07/22/18 [History] Ketamine Hcl Powder 1 applic TOP ASDIRECTED PRN 07/22/18 [History] Lidocaine/Prilocaine [Lidocaine-Prilocaine Cream] 1 applic TOP ASDIRECTED PRN [History] Montelukast Sodium 10 mg PO DAILY 07/22/18 [History] Zolpidem Tartrate 10 mg PO BEDTIME PRN 07/22/18 [History] Orphenadrine [Norflex] 100 mg PO ASDIRECTED PRN 03/19/19 [History] Phentermine HCl 30 mg PO DAILY 03/19/19 [History] Pregabalin [Lyrica] 75 mg PO QID 03/19/19 [History] Past Medical History - Past Health History Medical/Surgical History: Denies Medical/Surgical History HEENT History: Reports: Allergic Rhinitis, Impaired Vision, Other (See Below) Other HEENT History: wears glasses/contacts Cardiovascular History: Reports: None Respiratory History: Reports: Bronchitis, Recurrent Gastrointestinal History: Reports: GERD, Other (See Below) Other Gastrointestinal History: hx C-diff in 2014, h/o gastric ulcer Genitourinary History: Reports: Renal Calculus [employer] History: Musculoskeletal History: Reports: Arthritis, Back Pain, Chronic, Other (See Below) Other Musculoskeletal History: DDD, Chronic pain syndrome Neurological History: Reports: Migraines, Vertigo Psychiatric History: Reports: Anxiety, Depression Other Psychiatric History: insomnia Endocrine/Metabolic History: Reports: Obesity/BMI 30+ Hematologic History: Reports: None Immunologic History: Reports: None Oncologic (Cancer) History: Reports: None Dermatologic History: Reports: None - Infectious Disease History Infectious Disease History: Reports: Chicken Pox - Past Surgical History Head Surgeries/Procedures: Reports: None HEENT Surgical History: Reports: Naso-Sinus Surgery, Oral Surgery Cardiovascular Surgical History: Reports: None Respiratory Surgical History: Reports: None GI Surgical History: Reports: Appendectomy, Cholecystectomy, Colonoscopy Female Surgical History: Reports: Hysterectomy, Other (See Below) Other Female Surgeries/Procedures: laparotomy for ruptured ovarian cyst Endocrine Surgical History: Reports: None Neurological Surgical History: Reports: None Musculoskeletal Surgical History: Reports: Other (See Below) Other Musculoskeletal Surgeries/Procedures:: R foot peroneus longus tendon repair. back surgeries Oncologic Surgical History: Reports: None Dermatological Surgical History: Reports: None Social & Family History - Family History Family Medical History: Noncontributory - Tobacco Use Smoking Status *Q: Former Smoker Used Tobacco, but Quit: Yes Month/Year Tobacco Last Used: 2018 - Caffeine Use Caffeine Use: Reports: Coffee - Recreational Drug Use Recreational Drug Use: No ED ROS GENERAL - Review of Systems Review Of Systems: See Below ED EXAM, GENERAL - Physical Exam Exam: See Below Course - Vital Signs Last Recorded V/S: Last Vital Signs Temp 36.2 C 03/19/19 11:21 Pulse 65 03/19/19 12:38 Resp 18 03/19/19 12:38 BP 123/91 H 03/19/19 12:38 Pulse Ox 98 03/19/19 12:38 - Orders/Labs/Meds Orders: Active Orders 24 hr Category Date Time Status EKG Documentation Completion [RC] STAT Care 03/19/19 12:00 Active Labs: Laboratory Tests 03/19/19 03/19/19 Range/Units 12:15 12:15 WBC 5.67 (4.0-11.0) K/uL RBC 4.41 (4.30-5.90) M/uL Hgb 14.8 (12.0-16.0) g/dL Hct 41.7 (36.0-46.0) % MCV 94.6 (80.0-98.0) fL MCH 33.6 H (27.0-32.0) pg MCHC 35.5 (31.0-37.0) g/dL RDW Std Deviation 42.7 (28.0-62.0) fl RDW Coeff of Anai 12 (11.0-15.0) % Plt Count 135 L (150-400) K/uL MPV 11.60 (7.40-12.00) fL Neut % (Auto) 59.6 (48.0-80.0) % Lymph % (Auto) 33.7 (16.0-40.0) % [place] % (Auto) 5.8 (0.0-15.0) % Eos % (Auto) 0.7 (0.0-7.0) % Baso % (Auto) 0.2 (0.0-1.5) % Neut # (Auto) 3.4 (1.4-5.7) K/uL Lymph # (Auto) 1.9 (0.6-2.4) K/uL [place] # (Auto) 0.3 (0.0-0.8) K/uL Eos # (Auto) 0.0 (0.0-0.7) K/uL Baso # (Auto) 0.0 (0.0-0.1) K/uL Nucleated RBC % 0.0 /100WBC Nucleated RBCs # 0 K/uL Sodium 143 (136-145) mmol/L Potassium 4.2 (3.5-5.1) mmol/L Chloride 106 (98-107) mmol/L Carbon Dioxide 25.5 (21.0-32.0) mmol/L BUN 12 (7.0-18.0) mg/dL Creatinine 0.8 (0.6-1.0) mg/dL Est Cr Clr Drug Dosing 99.25 mL/min Estimated GFR (MDRD) > 60.0 ml/min Glucose 83 (74-106) mg/dL Calcium 8.9 (8.5-10.1) mg/dL Total Bilirubin 0.3 (0.2-1.0) mg/dL AST 35 (15-37) IU/L ALT 34 (14-63) IU/L Alkaline Phosphatase 97 (46-116) U/L Total Protein 7.5 (6.4-8.2) g/dL Albumin 4.0 (3.4-5.0) g/dL Globulin 3.5 (2.6-4.0) g/dL Albumin/Globulin Ratio 1.1 (0.9-1.6) Meds: Medications Discontinued Medications Generic Name Dose Route Start Last Admin Trade Name Freq PRN Reason Stop Dose Admin Sodium Chloride 1,000 mls @ 999 mls/hr 03/19/19 12:00 03/19/19 12:36 Normal Saline IV 03/19/19 13:00 999 mls/hr .BOLUS ONE Administration Metoclopramide HCl 10 mg 03/19/19 12:00 03/19/19 12:37 Reglan IVPUSH 03/19/19 12:01 10 mg ONETIME ONE Administration Departure - Departure Time of Disposition: 14:00 Disposition: Home, Self-Care 01 Clinical Impression: Dizziness - Discharge Information Instructions: Dizziness Referrals: Colin Rangel MD [Primary Care Provider] - Forms: ED Department Discharge Sepsis Event Note - Evaluation Sepsis Screening Result: No Definite Risk - Focused Exam Vital Signs: Vital Signs Temp Pulse Resp BP Pulse Ox 03/19/19 12:38 65 18 123/91 H 98 03/19/19 11:21 36.2 C 74 18 131/93 H 97 Date Exam was Performed: 03/19/19 Time Exam was Performed: 13:57 - My Orders Last 24 Hours: My Active Orders 03/19/19 12:00 EKG Documentation Completion [RC] STAT - Assessment/Plan Last 24 Hours: My Active Orders 03/19/19 12:00 EKG Documentation Completion [RC] STAT
[2019-03-19 13:26] LABS: BLOOD UREA NITROGEN,BUN 12 mg/dL (7.0-18.0); CARBON DIOXIDE,CO2 25.5 mmol/L (21.0-32.0); CHLORIDE,CL 106 mmol/L (98-107); GLUCOSE RANDOM 83 mg/dL (74-106); POTASSIUM,K 4.2 mmol/L (3.5-5.1); SODIUM,NA 143 mmol/L (136-145)
[2019-03-19 14:24] VITALS: BP 128/87; PULSE 71
== END 2019-03-19 14:24 | disposition home or self-care (01) ==
LOC: MW.ED 10:56
DX: R42 Dizziness and giddiness (principal); F41.9 Anxiety disorder, unspecified; F32.9 Major depressive disorder, single episode, unspecified; E66.9 Obesity, unspecified; Z79.899 Other long term (current) drug therapy; Z88.0 Allergy status to penicillin
CPT/HCPCS: 36415; 80053; 85025; 93005; 96361; 96374; 99284; J2765; J7030

== ENCOUNTER 2019-11-16 18:18 | Inpatient (IN) | payer OTHER ==
[2019-11-16] MEDS ORDERED: Sodium Chloride 0.9% 10 ML Syringe FLUSH PRN (19:29)
[2019-11-16] MEDS ORDERED: Ketorolac 30 MG/ML SDV IVPUSH ONE (19:29)
[2019-11-16] MEDS ORDERED: Sodium Chloride 0.9% 1,000 ML IV ONE (19:29)
[2019-11-16] MEDS ORDERED: Sodium Chloride 0.9% 2.5 ML Syringe FLUSH PRN (19:29)
[2019-11-16] MEDS ORDERED: Morphine 4 MG/ML Syringe IVPUSH ONE (19:29)
--- NOTE | 2019-11-16 19:39 | EDM.PDOC ---
ED HPI GENERAL MEDICAL PROBLEM - General Chief Complaint: Respiratory Problem Stated Complaint: TROUBLE BREATHING Time Seen by Provider: 11/16/19 18:21 - History of Present Illness INITIAL COMMENTS - FREE TEXT/NARRATIVE: HISTORY AND PHYSICAL: History of present illness: This is a 44-year-old female with a history significant for asthma who presents ER today secondary to shortness of breath and hypoxia documented at home with her pulse oximeter. Patient works for [employer] and has been exposed to other employees who are positive for gamble virus. Patient reports that last Saturday she started having headaches and rhinorrhea. She went to see her primary care physician and was started on steroids and antibiotics for presumed sinus infection. Patient reports that she completed her course of antibiotics and steroids but has been feeling poorly with a nonproductive cough, shortness of breath and chest tightness. Patient reports that she went on Saturday for evaluation of coronavirus and was called on Saturday and was told that her coronavirus test was positive. Patient reports that today she checked her oxygen level during exertion and her oxygen level was in the mid 80s and so came to the ED for further evaluation. Patient denies any fevers, shakes, chills, nausea, vomiting, diarrhea, dysuria, frequency, urgency, abdominal discomfort. Patient does admit to shortness of breath, rhinorrhea, headache, pleuritic chest pain with inspiration and cough, nonproductive cough. Patient is status post hysterectomy and surgery for ruptured ovarian cyst in the past. Patient denies any diabetes, liver, kidney problems. Patient denies any hypertension. Patient denies any coronary disease or strokes in the past. Patient reports allergies penicillin as well as adhesive tape and Dermabond. Patient denies any tobacco alcohol or drugs. 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 Review of systems: As per history of present illness and below otherwise all systems reviewed and negative. Past medical history: As per history of present illness and as reviewed below otherwise noncontributory. Surgical history: As per history of present illness and as reviewed below otherwise nonc ontributory. Social history: No reported history of drug or alcohol abuse. Family history: As per history of present illness and as reviewed below otherwise noncontributory. Physical exam: Constitutional: Patient is oriented to person, place, and time. Appears well- developed and well-nourished. No distress. HEENT: Moist mucous membranes Head: Normocephalic and atraumatic Eyes: Right eye exhibits no discharge. Left eye exhibits no discharge. No scleral icterus Neck: Normal range of motion. No tracheal deviation present. Cardiovascular: Normal rate and regular rhythm. Pulmonary: Effort normal, no respiratory distress. Abdominal: No distention Musculoskeletal: Normal range of motion Neurologic: Alert and oriented to person, place and time. Skin: [place], warm and dry. Psychiatric: Normal mood and affect. Behavior is normal. Judgment and thought content normal. Nursing note and vital signs have been reviewed Patient is resting comfortably in bed and is able to speak in full sentences without difficulty. Patient is lungs are clear without any wheezing. Diagnostics: Patient's pulse ox is 92 to 95% on room air here in the ED. Patient will obtain a chest x-ray, room air arterial blood gas, CBC, CMP, BNP, troponin, lactic acid, blood cultures x2 Chest x-ray EKG: Normal sinus rhythm heart rate of [address]-T wave abnormalities Normal axis No evidence of ST elevation PA As interpreted by ER physician: [facility] Chest Xray: Normal cardiac silhouette No infiltrates or effusions identified. No PTX No evidence of acute bony fracture. As interpreted by ER MD: [employer]: 1 L normal saline Toradol 30 mg IV Morphine 2 mg IV Assessment and plan: This is a 44-year-old female who is a recent diagnosis of coronavirus presents to the ER today with hypoxia identified at home with her pulse oximeter. Patient's pulse ox here in the ED on room air is 92 to 95%. Patient's vital signs are otherwise within normal limits. Will obtain labs, chest x-ray, ABG to ascertain her oxygen need, Toradol and morphine to assist with her pleuritic chest pain and discomfort as well as her headache. Patient will be reassessed after completion of labs. Patient's chest x-ray did not reveal any significant abnormality. Patient's initial ABG revealed significant hypoxia however this appears to be most likely secondary to venous blood. Repeat ABG on 2 L reveals PO2 of 95. Patient will be admitted secondary to her hypoxia and dyspnea. Patient reports pulse ox of 85% on room air at home with exertion. Case discussed with Dr. Tucker who is agreed to assist with inpatient level care of this patient. Definitive disposition and diagnosis as appropriate pending reevaluation and review of above. chedst and back Pain Score (Numeric/FACES): 7 - Related Data Allergies Allergy/AdvReac Type Severity Reaction Status Date / Time Penicillins Allergy Rash Verified 03/19/19 11:13 dermabond Allergy Rash Uncoded 11/16/19 18:23 Home Meds: Home Meds ALPRAZolam [Xanax] 1 mg PO BID PRN 07/11/16 [History] Esomeprazole [NexIUM] 40 mg PO ACBREAKFAST 02/19/17 [History] traZODone HCl [Trazodone HCl] 1 - 2 tab PO BEDTIME 02/19/17 [History] busPIRone [Buspar] 30 mg PO BID 08/14/17 [History] Vortioxetine Hydrobromide [Trintellix] 5 mg PO DAILY 04/02/18 [History] Albuterol Sulfate [Proair Hfa] 1 - 2 puff INH ASDIRECTED PRN 07/22/18 [History] Diclofenac Sodium [Voltaren 1% Gel] 1 applic TOP ASDIRECTED PRN 07/22/18 [History] Fluticasone Propionate [Flonase Allergy Relief] 1 spray NASBOTH BID 07/22/18 [History] Fluticasone Propionate [Flovent HFA] 2 puff INH BID 07/22/18 [History] Ketamine Hcl Powder 1 applic TOP ASDIRECTED PRN 07/22/18 [History] Lidocaine/Prilocaine [Lidocaine-Prilocaine Cream] 1 applic TOP ASDIRECTED PRN 07/22/18 [History] Montelukast Sodium 10 mg PO DAILY 07/22/18 [History] estradioL [Estrace] 2 mg PO DAILY 07/22/18 [History] Meclizine [Antivert] 12.5 mg PO TID #30 tab 03/19/19 [Rx] Phentermine HCl 30 mg PO DAILY 03/19/19 [History] Metaxalone [Metaxall] 800 mg PO BID PRN 11/16/19 [History] QUEtiapine Fumarate [Seroquel] 100 mg PO DAILY 11/16/19 [History] Past Medical History - Past Health History Medical/Surgical History: Denies Medical/Surgical History HEENT History: Reports: Allergic Rhinitis, Impaired Vision, Other (See Below) Other HEENT History: wears glasses/contacts Cardiovascular History: Reports: None Respiratory History: Reports: Bronchitis, Recurrent Gastrointestinal History: Reports: GERD, Other (See Below) Other Gastrointestinal History: hx C-diff in 2015, h/o gastric ulcer Genitourinary History: Reports: Renal Calculus [employer] History: Musculoskeletal History: Reports: Arthritis, Back Pain, Chronic, Other (See Below) Other Musculoskeletal History: DDD, Chronic pain syndrome, pain stimulator Neurological History: Reports: Migraines, Vertigo Psychiatric History: Reports: Anxiety, Depression Other Psychiatric History: insomnia Endocrine/Metabolic History: Reports: Obesity/BMI 30+ Hematologic History: Reports: None Immunologic History: Reports: None Oncologic (Cancer) History: Reports: None Dermatologic History: Reports: None - Infectious Disease History Infectious Disease History: Reports: Chicken Pox - Past Surgical History Head Surgeries/Procedures: Reports: None HEENT Surgical History: Reports: Naso-Sinus Surgery, Oral Surgery Cardiovascular Surgical History: Reports: None Respiratory Surgical History: Reports: None GI Surgical History: Reports: Appendectomy, Cholecystectomy, Colonoscopy Female Surgical History: Reports: Hysterectomy, Other (See Below) Other Female Surgeries/Procedures: laparotomy for ruptured ovarian cyst Endocrine Surgical History: Reports: None Neurological Surgical History: Reports: None Musculoskeletal Surgical History: Reports: Other (See Below) Other Musculoskeletal Surgeries/Procedures:: R foot peroneus longus tendon repair. back surgeries Oncologic Surgical History: Reports: None Dermatological Surgical History: Reports: None Social & Family History - Family History Family Medical History: Noncontributory - Tobacco Use Used Tobacco, but Quit: Yes Month/Year Tobacco Last Used: 09/2018 - Caffeine Use Caffeine Use: Reports: Coffee, Energy Drinks, Tea - Recreational Drug Use Recreational Drug Use: No ED ROS GENERAL - Review of Systems Review Of Systems: See Below ED EXAM, GENERAL - Physical Exam Exam: See Below Course - Vital Signs Last Recorded V/S: Last Vital Signs Temp 97.8 F 11/16/19 18:29 Pulse 84 11/16/19 22:31 Resp 20 11/16/19 22:31 BP 127/86 11/16/19 22:31 Pulse Ox 98 11/16/19 22:31 - Orders/Labs/Meds Orders: Active Orders 24 hr Category Date Time Status Patient Status [ADT] Routine ADT 11/16/19 22:31 Ordered ABG [BLOOD GAS ARTERIAL] [BG] Stat Lab 11/16/19 22:13 Ordered CULTURE BLOOD [BC] Stat Lab 11/16/19 20:39 Received CULTURE BLOOD [BC] Stat Lab 11/16/19 20:48 Received Sodium Chloride 0.9% [Saline Flush] Med 11/16/19 19:29 Active 10 ml FLUSH ASDIRECTED PRN Sodium Chloride 0.9% [Saline Flush] Med 11/16/19 19:29 Active 2.5 ml FLUSH ASDIRECTED PRN Blood Culture x2 Reflex Set [OM.PC] Stat Oth 11/16/19 19:30 Ordered Saline Lock Insert [OM.PC] Stat Oth 11/16/19 19:29 Ordered Medication Orders Sodium Chloride (Saline Flush) 10 ml FLUSH ASDIRECTED PRN PRN Reason: Keep Vein Open Last Admin: 11/16/19 20:39 Dose: 10 ml Documented by: NAVEEN Sodium Chloride (Saline Flush) 2.5 ml FLUSH ASDIRECTED PRN PRN Reason: Keep Vein Open Last Admin: 11/16/19 20:39 Dose: 2.5 ml Documented by: NAVEEN Labs: Laboratory Tests 11/16/19 11/16/19 11/16/19 Range/Units 20:25 20:25 20:25 WBC 8.39 (4.0-11.0) K/uL RBC 4.50 (4.30-5.90) M/uL Hgb 15.3 (12.0-16.0) g/dL Hct 43.6 (36.0-46.0) % MCV 96.9 (80.0-98.0) fL MCH 34.0 H (27.0-32.0) pg MCHC 35.1 (31.0-37.0) g/dL RDW Std Deviation 44.3 (28.0-62.0) fl RDW Coeff of Anai 13 (11.0-15.0) % Plt Count 172 (150-400) K/uL MPV 10.50 (7.40-12.00) fL Neut % (Auto) 65.0 (48.0-80.0) % Lymph % (Auto) 22.6 (16.0-40.0) % Riley % (Auto) 11.8 (0.0-15.0) % Eos % (Auto) 0.4 (0.0-7.0) % Baso % (Auto) 0.2 (0.0-1.5) % Neut # (Auto) 5.5 (1.4-5.7) K/uL Lymph # (Auto) 1.9 (0.6-2.4) K/uL Riley # (Auto) 1.0 H (0.0-0.8) K/uL Eos # (Auto) 0.0 (0.0-0.7) K/uL Baso # (Auto) 0.0 (0.0-0.1) K/uL Nucleated RBC % 0.0 /100WBC Nucleated RBCs # 0 K/uL ABG pH (7.35-7.45) ABG pCO2 (35-45) mmHG ABG pO2 (75-100) mmHG ABG HCO3 (22-26) mEq/L ABG Total CO2 ABG Base Excess (-2.0-2.0) Lactate 1.6 (0.20-2.00) mmol/L Sodium 140 (136-145) mmol/L Potassium 4.0 (3.5-5.1) mmol/L Chloride 101 (98-107) mmol/L Carbon Dioxide 28.6 (21.0-32.0) mmol/L BUN 13 (7.0-18.0) mg/dL Creatinine 0.9 (0.6-1.0) mg/dL Est Cr Clr Drug Dosing 88.23 mL/min Estimated GFR (MDRD) > 60.0 ml/min Glucose 103 (74-106) mg/dL Calcium 9.1 (8.5-10.1) mg/dL Total Bilirubin 0.7 (0.2-1.0) mg/dL AST 328 H (15-37) IU/L ALT 202 H (14-63) IU/L Alkaline Phosphatase 160 H (46-116) U/L Troponin I < 0.050 (0.000-0.056) ng/mL B-Natriuretic Peptide (<100) PG/ML Total Protein 7.0 (6.4-8.2) g/dL Albumin 3.7 (3.4-5.0) g/dL Globulin 3.3 (2.6-4.0) g/dL Albumin/Globulin Ratio 1.1 (0.9-1.6) 11/16/19 11/16/19 11/16/19 Range/Units 20:25 21:15 22:06 WBC (4.0-11.0) K/uL RBC (4.30-5.90) M/uL Hgb (12.0-16.0) g/dL Hct (36.0-46.0) % MCV (80.0-98.0) fL MCH (27.0-32.0) pg MCHC (31.0-37.0) g/dL RDW Std Deviation (28.0-62.0) fl RDW Coeff of Anai (11.0-15.0) % Plt Count (150-400) K/uL MPV (7.40-12.00) fL Neut % (Auto) (48.0-80.0) % Lymph % (Auto) (16.0-40.0) % Riley % (Auto) (0.0-15.0) % Eos % (Auto) (0.0-7.0) % Baso % (Auto) (0.0-1.5) % Neut # (Auto) (1.4-5.7) K/uL Lymph # (Auto) (0.6-2.4) K/uL Riley # (Auto) (0.0-0.8) K/uL Eos # (Auto) (0.0-0.7) K/uL Baso # (Auto) (0.0-0.1) K/uL Nucleated RBC % /100WBC Nucleated RBCs # K/uL ABG pH 7.450 7.472 H (7.35-7.45) ABG pCO2 42 39 (35-45) mmHG ABG pO2 37 L* 95 (75-100) mmHG ABG HCO3 29 H 28 H (22-26) mEq/L ABG Total CO2 26.3 24.8 ABG Base Excess 4.9 H 4.3 H (-2.0-2.0) Lactate (0.20-2.00) mmol/L Sodium (136-145) mmol/L Potassium (3.5-5.1) mmol/L Chloride (98-107) mmol/L Carbon Dioxide (21.0-32.0) mmol/L BUN (7.0-18.0) mg/dL Creatinine (0.6-1.0) mg/dL Est Cr Clr Drug Dosing mL/min Estimated GFR (MDRD) ml/min Glucose (74-106) mg/dL Calcium (8.5-10.1) mg/dL Total Bilirubin (0.2-1.0) mg/dL AST (15-37) IU/L ALT (14-63) IU/L Alkaline Phosphatase (46-116) U/L Troponin I (0.000-0.056) ng/mL B-Natriuretic Peptide 4 (<100) PG/ML Total Protein (6.4-8.2) g/dL Albumin (3.4-5.0) g/dL Globulin (2.6-4.0) g/dL Albumin/Globulin Ratio (0.9-1.6) Meds: Medications Generic Name Dose Route Start Last Admin Trade Name Freq PRN Reason Stop Dose Admin Sodium Chloride 10 ml 11/16/19 19:29 11/16/19 20:39 Saline Flush FLUSH 10 ml ASDIRECTED PRN Administration Keep Vein Open Sodium Chloride 2.5 ml 11/16/19 19:29 11/16/19 20:39 Saline Flush FLUSH 2.5 ml ASDIRECTED PRN Administration Keep Vein Open Discontinued Medications Generic Name Dose Route Start Last Admin Trade Name Freq PRN Reason Stop Dose Admin Guaifenesin/Codeine Phosphate 5 ml 11/16/19 20:48 11/16/19 20:55 Robitussin Ac PO 11/16/19 20:49 5 ml ONETIME ONE Administration Sodium Chloride 1,000 mls @ 999 mls/hr 11/16/19 19:29 11/16/19 20:15 Normal Saline IV 11/16/19 20:29 999 mls/hr .Bolus ONE Administration Ketorolac Tromethamine 30 mg 11/16/19 19:29 11/16/19 20:14 Toradol IVPUSH 11/16/19 19:30 30 mg ONETIME ONE Administration Morphine Sulfate 2 mg 11/16/19 19:29 11/16/19 20:14 Morphine IVPUSH 11/16/19 19:30 2 mg ONETIME ONE Administration Departure - Departure Time of Disposition: 22:34 Disposition: Admitted As Inpatient 65 Condition: Good Clinical Impression: Coronavirus infection, Hypoxia - Discharge Information Referrals: PCP,None [Primary Care Provider] - Forms: ED Department Discharge Sepsis Event Note (ED) - Evaluation Sepsis Screening Result: No Definite Risk - Focused Exam Vital Signs: Vital Signs Temp Pulse Resp BP Pulse Ox 11/16/19 22:31 84 20 127/86 98 11/16/19 21:13 82 20 103/71 94 L 11/16/19 19:16 89 18 111/76 90 L 11/16/19 18:29 97.8 F 99 20 109/81 99 - My Orders Last 24 Hours: My Active Orders 11/16/19 19:29 Sodium Chloride 0.9% [Saline Flush] 10 ml FLUSH ASDIRECTED PRN Sodium Chloride 0.9% [Saline Flush] 2.5 ml FLUSH ASDIRECTED PRN Saline Lock Insert [OM.PC] Stat 11/16/19 19:30 Blood Culture x2 Reflex Set [OM.PC] Stat 11/16/19 20:39 CULTURE BLOOD [BC] Stat 11/16/19 20:48 CULTURE BLOOD [BC] Stat 11/16/19 22:13 ABG [BLOOD GAS ARTERIAL] [BG] Stat 11/16/19 22:31 Patient Status [ADT] Routine - Assessment/Plan Last 24 Hours: My Active Orders 11/16/19 19:29 Sodium Chloride 0.9% [Saline Flush] 10 ml FLUSH ASDIRECTED PRN Sodium Chloride 0.9% [Saline Flush] 2.5 ml FLUSH ASDIRECTED PRN Saline Lock Insert [OM.PC] Stat 11/16/19 19:30 Blood Culture x2 Reflex Set [OM.PC] Stat 11/16/19 20:39 CULTURE BLOOD [BC] Stat 11/16/19 20:48 CULTURE BLOOD [BC] Stat 11/16/19 22:13 ABG [BLOOD GAS ARTERIAL] [BG] Stat 11/16/19 22:31 Patient Status [ADT] Routine
--- NOTE | 2019-11-16 19:59 | CR ---
Chest: Frontal view of the chest was obtained utilizing portable technique. Comparison: Prior chest x-ray of 04/02/18. Heart size and mediastinum are within normal limits for portable technique. Lungs are clear with no acute parenchymal change. Bony structures are grossly intact. Impression: 1. Nothing acute is seen on portable chest x-ray. Diagnostic code #1 This report was dictated in MDT
[2019-11-16] MEDS ORDERED: Codeine/guaiFENesin 10-100 MG/5 ML Syrup 5 ML Cup PO ONE (20:48)
[2019-11-16 21:04] LABS: BLOOD UREA NITROGEN,BUN 13 mg/dL (7.0-18.0); CARBON DIOXIDE,CO2 28.6 mmol/L (21.0-32.0); CHLORIDE,CL 101 mmol/L (98-107); GLUCOSE RANDOM 103 mg/dL (74-106); SODIUM,NA 140 mmol/L (136-145)
[2019-11-16] MEDS ORDERED: Dexamethasone 10 MG/ML SDV IVPUSH ONE (22:35)
[2019-11-16] MEDS ORDERED: Ondansetron 4 MG/2 ML SDV IVPUSH PRN (23:49)
[2019-11-17] MEDS: Enoxaparin 100 MG/1 ML Syringe SUBCUT SCH ×3 (01:52→23:52)
[2019-11-17] MEDS: ALPRAZolam 0.5 MG Tab PO SCH ×3 (02:48→20:56)
[2019-11-17] MEDS: busPIRone 5 MG Tab PO SCH ×3 (02:48→20:57)
[2019-11-17] MEDS: QUEtiapine 100 MG Tab PO SCH ×2 (02:49→20:56)
[2019-11-17] MEDS: Albuterol/Ipratropium 4 GM Inhalation Spray INH PRN ×2 (03:00→21:02)
[2019-11-17] MEDS: traZODone 50 MG Tab PO SCH ×2 (03:10→20:56)
[2019-11-17 06:31] LABS: BLOOD UREA NITROGEN,BUN 11 mg/dL (7.0-18.0); CARBON DIOXIDE,CO2 27.5 mmol/L (21.0-32.0); CHLORIDE,CL 104 mmol/L (98-107); GLUCOSE RANDOM 172 mg/dL (74-106); POTASSIUM,K 4.6 mmol/L (3.5-5.1); SODIUM,NA 140 mmol/L (136-145)
--- NOTE | 2019-11-17 08:04 | PCM.HP.2 ---
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 Patient was exposed to a patient 14 days earlier and was tested positive for COVID once in the outpatient setting and once in the ED on arrival. Symptoms began as headaches and rhinorrhea with sinus pressure in 3 to 4 days earlier and was started on a Medrol Dosepak and antibiotics; mentions however shortness of breath continued to worsen and proceeded to the ED. Patient otherwise denies any GI symptoms including diarrhea, constipation but is complaining of cough and pleuritic type chest pain. Denies any current use of tobacco and or alcohol ED course: EKG did not demonstrate any ST elevation depressions. Chest x-ray negative for any acute infiltrates and effusions Received 1 L normal saline, Toradol and morphine for pain control of pleuritic chest pain. Bedside: Patient endorsing feeling fatigued and mild shortness of breath; no longer using supplemental O2 at bedside but does feel hot with mild sweats; afebrile currently. No other acute distress chedst and back Pain Score (Numeric/FACES): 7 - Related Data Allergies/Adverse Reactions: Allergies Allergy/AdvReac Type Severity Reaction Status Date / Time Penicillins Allergy Rash Verified 11/17/19 01:23 dermabond Allergy Rash Uncoded 11/17/19 01:23 Home Medications: Home Meds ALPRAZolam [Xanax] 1 mg PO BID 07/11/16 [History] Esomeprazole [NexIUM] 40 mg PO ACBREAKFAST 02/19/17 [History] traZODone HCl [Trazodone HCl] 2 tab PO BEDTIME 02/19/17 [History] busPIRone [Buspar] 30 mg PO BID 08/14/17 [History] Vortioxetine Hydrobromide [Trintellix] 20 mg PO DAILY 04/02/18 [History] Albuterol Sulfate [Proair Hfa] 1 - 2 puff INH ASDIRECTED PRN 07/22/18 [History] Diclofenac Sodium [Voltaren 1% Gel] 1 applic TOP ASDIRECTED PRN 07/22/18 [History] Fluticasone Propionate [Flonase Allergy Relief] 1 spray NASBOTH DAILY 07/22/18 [History] Fluticasone Propionate [Flovent HFA] 2 puff INH BID PRN 07/22/18 [History] Ketamine Hcl Powder 1 applic TOP ASDIRECTED PRN 07/22/18 [History] Lidocaine/Prilocaine [Lidocaine-Prilocaine Cream] 1 applic TOP ASDIRECTED PRN 07/22/18 [History] Montelukast Sodium 10 mg PO BEDTIME 07/22/18 [History] estradioL [Estrace] 2 mg PO DAILY 07/22/18 [History] Meclizine [Antivert] 12.5 mg PO TID #30 tab 03/19/19 [Rx] Phentermine HCl 37.5 mg PO DAILY 03/19/19 [History] Metaxalone [Metaxall] 800 mg PO BID PRN 11/16/19 [History] QUEtiapine Fumarate [Seroquel] 100 mg PO BEDTIME 11/16/19 [History] Aspirin [Low Dose Aspirin EC] 81 mg PO DAILY 30 Days #30 tablet. 11/18/19 [Rx] Patient's Own Medication [Ptom] 1 each PO ACBREAKFAST each 11/18/19 [Rx] dexAMETHasone [Dexamethasone] 6 mg PO DAILY 8 Days #8 tablet 11/18/19 [Rx] Past Medical History - Past Health History Medical/Surgical History: Denies Medical/Surgical History HEENT History: Reports: Allergic Rhinitis, Impaired Vision, Other (See Below) Other HEENT History: wears glasses/contacts Cardiovascular History: Reports: None Respiratory History: Reports: Bronchitis, Recurrent Gastrointestinal History: Reports: GERD, Other (See Below) Other Gastrointestinal History: hx C-diff in 2014, h/o gastric ulcer Genitourinary History: Reports: Renal Calculus [employer]OB [employer] History: Musculoskeletal History: Reports: Arthritis, Back Pain, Chronic, Other (See Below) Other Musculoskeletal History: DDD, Chronic pain syndrome, pain stimulator Neurological History: Reports: Migraines, Vertigo Psychiatric History: Reports: Anxiety, Depression Other Psychiatric History: insomnia Endocrine/Metabolic History: Reports: Obesity/BMI 30+ Hematologic History: Reports: None Immunologic History: Reports: None Oncologic (Cancer) History: Reports: None Dermatologic History: Reports: None - Infectious Disease History Infectious Disease History: Reports: Chicken Pox - Past Surgical History Head Surgeries/Procedures: Reports: None HEENT Surgical History: Reports: Naso-Sinus Surgery, Oral Surgery Cardiovascular Surgical History: Reports: None Respiratory Surgical History: Reports: None GI Surgical History: Reports: Appendectomy, Cholecystectomy, Colonoscopy Female Surgical History: Reports: Hysterectomy, Other (See Below) Other Female Surgeries/Procedures: laparotomy for ruptured ovarian cyst Endocrine Surgical History: Reports: None Neurological Surgical History: Reports: None Musculoskeletal Surgical History: Reports: Other (See Below) Other Musculoskeletal Surgeries/Procedures:: R foot peroneus longus tendon repair. back surgeries Oncologic Surgical History: Reports: None Dermatological Surgical History: Reports: None Social & Family History - Family History Family Medical History: Noncontributory - Tobacco Use Smoking Status *Q: Never Smoker Used Tobacco, but Quit: Yes Month/Year Tobacco Last Used: 09/2018 - Caffeine Use Caffeine Use: Reports: Coffee, Energy Drinks, Tea - Recreational Drug Use Recreational Drug Use: No H&P Review of Systems - Review of Systems: Review Of Systems: See Below General: Reports: Chills, Fatigue. Denies: Fever HEENT: Reports: Rhinitis, Sinus Congestion. Denies: Sore Throat Pulmonary: Reports: Shortness of Breath, Pleuritic Chest Pain, Cough. Denies: Sputum, Hemoptysis Cardiovascular: Reports: No Symptoms Gastrointestinal: Reports: No Symptoms Genitourinary: Reports: No Symptoms Musculoskeletal: Reports: No Symptoms Skin: Reports: No Symptoms Psychiatric: Reports: No Symptoms Neurological: Reports: Headache Hematologic/Lymphatic: Reports: No Symptoms Exam - Exam Exam: See Below - Vital Signs Vital Signs: Last Vital Signs Temp 97.6 F 11/17/19 05:00 Pulse 78 11/17/19 05:00 Resp 19 11/17/19 05:00 BP 119/75 11/17/19 05:00 Pulse Ox 97 11/17/19 05:00 Weight: 86.183 kg - Exam Quality Assessment: No: Supplemental Oxygen General: Alert, Oriented, Cooperative HEENT: EOMI Neck: Supple, Trachea Midline Lungs: Clear to Auscultation, Normal Respiratory Effort Cardiovascular: Regular Rate, Regular Rhythm GI/Abdominal Exam: Soft, Non-Tender Back Exam: Normal Inspection Extremities: Normal Inspection, No Pedal Edema Skin: Warm Neurological: Cranial Nerves Intact Neuro Extensive - Mental Status: Alert, Oriented x3, Normal Mood/Affect Neuro Extensive - Motor, Sensory, Reflexes: CN II-XII Intact Psychiatric: Alert, Normal Affect, Normal Mood - Patient Data Lab Results Last 24 hrs: Laboratory Results - last 24 hr 11/16/19 11/16/19 11/16/19 Range/Units 20:25 20:25 20:25 WBC 8.39 (4.0-11.0) K/uL RBC 4.50 (4.30-5.90) M/uL Hgb 15.3 (12.0-16.0) g/dL Hct 43.6 (36.0-46.0) % MCV 96.9 (80.0-98.0) fL MCH 34.0 H (27.0-32.0) pg MCHC 35.1 (31.0-37.0) g/dL RDW Std Deviation 44.3 (28.0-62.0) fl RDW Coeff of Anai 13 (11.0-15.0) % Plt Count 172 (150-400) K/uL MPV 10.50 (7.40-12.00) fL Neut % (Auto) 65.0 (48.0-80.0) % Lymph % (Auto) 22.6 (16.0-40.0) % [place] % (Auto) 11.8 (0.0-15.0) % Eos % (Auto) 0.4 (0.0-7.0) % Baso % (Auto) 0.2 (0.0-1.5) % Neut # (Auto) 5.5 (1.4-5.7) K/uL Lymph # (Auto) 1.9 (0.6-2.4) K/uL [place] # (Auto) 1.0 H (0.0-0.8) K/uL Eos # (Auto) 0.0 (0.0-0.7) K/uL Baso # (Auto) 0.0 (0.0-0.1) K/uL Nucleated RBC % 0.0 /100WBC Nucleated RBCs # 0 K/uL ABG pH (7.35-7.45) ABG pCO2 (35-45) mmHG ABG pO2 (75-100) mmHG ABG HCO3 (22-26) mEq/L ABG Total CO2 ABG Base Excess (-2.0-2.0) Lactate 1.6 (0.20-2.00) mmol/L Sodium 140 (136-145) mmol/L Potassium 4.0 (3.5-5.1) mmol/L Chloride 101 (98-107) mmol/L Carbon Dioxide 28.6 (21.0-32.0) mmol/L BUN 13 (7.0-18.0) mg/dL Creatinine 0.9 (0.6-1.0) mg/dL Est Cr Clr Drug Dosing 88.23 mL/min Estimated GFR (MDRD) > 60.0 ml/min Glucose 103 (74-106) mg/dL Calcium 9.1 (8.5-10.1) mg/dL Phosphorus (2.6-4.7) mg/dL Magnesium (1.8-2.4) mg/dL Total Bilirubin 0.7 (0.2-1.0) mg/dL AST 328 H (15-37) IU/L ALT 202 H (14-63) IU/L Alkaline Phosphatase 160 H (46-116) U/L Troponin I < 0.050 (0.000-0.056) ng/mL B-Natriuretic Peptide (<100) PG/ML Total Protein 7.0 (6.4-8.2) g/dL Albumin 3.7 (3.4-5.0) g/dL Globulin 3.3 (2.6-4.0) g/dL Albumin/Globulin Ratio 1.1 (0.9-1.6) SARS Virus RNA (PCR) (NEGATIVE) 11/16/19 11/16/19 11/16/19 Range/Units 20:25 21:15 22:06 WBC (4.0-11.0) K/uL RBC (4.30-5.90) M/uL Hgb (12.0-16.0) g/dL Hct (36.0-46.0) % MCV (80.0-98.0) fL MCH (27.0-32.0) pg MCHC (31.0-37.0) g/dL RDW Std Deviation (28.0-62.0) fl RDW Coeff of Anai (11.0-15.0) % Plt Count (150-400) K/uL MPV (7.40-12.00) fL Neut % (Auto) (48.0-80.0) % Lymph % (Auto) (16.0-40.0) % [place] % (Auto) (0.0-15.0) % Eos % (Auto) (0.0-7.0) % Baso % (Auto) (0.0-1.5) % Neut # (Auto) (1.4-5.7) K/uL Lymph # (Auto) (0.6-2.4) K/uL [place] # (Auto) (0.0-0.8) K/uL Eos # (Auto) (0.0-0.7) K/uL Baso # (Auto) (0.0-0.1) K/uL Nucleated RBC % /100WBC Nucleated RBCs # K/uL ABG pH 7.450 7.472 H (7.35-7.45) ABG pCO2 42 39 (35-45) mmHG ABG pO2 37 L* 95 (75-100) mmHG ABG HCO3 29 H 28 H (22-26) mEq/L ABG Total CO2 26.3 24.8 ABG Base Excess 4.9 H 4.3 H (-2.0-2.0) Lactate (0.20-2.00) mmol/L Sodium (136-145) mmol/L Potassium (3.5-5.1) mmol/L Chloride (98-107) mmol/L Carbon Dioxide (21.0-32.0) mmol/L BUN (7.0-18.0) mg/dL Creatinine (0.6-1.0) mg/dL Est Cr Clr Drug Dosing mL/min Estimated GFR (MDRD) ml/min Glucose (74-106) mg/dL Calcium (8.5-10.1) mg/dL Phosphorus (2.6-4.7) mg/dL Magnesium (1.8-2.4) mg/dL Total Bilirubin (0.2-1.0) mg/dL AST (15-37) IU/L ALT (14-63) IU/L Alkaline Phosphatase (46-116) U/L Troponin I (0.000-0.056) ng/mL B-Natriuretic Peptide 4 (<100) PG/ML Total Protein (6.4-8.2) g/dL Albumin (3.4-5.0) g/dL Globulin (2.6-4.0) g/dL Albumin/Globulin Ratio (0.9-1.6) SARS Virus RNA (PCR) (NEGATIVE) 11/16/19 11/17/19 11/17/19 Range/Units 22:37 05:47 05:47 WBC 4.87 (4.0-11.0) K/uL RBC 4.25 L (4.30-5.90) M/uL Hgb 14.0 (12.0-16.0) g/dL Hct 41.5 (36.0-46.0) % MCV 97.6 (80.0-98.0) fL MCH 32.9 H (27.0-32.0) pg MCHC 33.7 (31.0-37.0) g/dL RDW Std Deviation 45.2 (28.0-62.0) fl RDW Coeff of Anai 13 (11.0-15.0) % Plt Count 136 L (150-400) K/uL MPV 10.00 (7.40-12.00) fL Neut % (Auto) 83.5 H (48.0-80.0) % Lymph % (Auto) 13.8 L (16.0-40.0) % [place] % (Auto) 2.7 (0.0-15.0) % Eos % (Auto) 0.0 (0.0-7.0) % Baso % (Auto) 0.0 (0.0-1.5) % Neut # (Auto) 4.1 (1.4-5.7) K/uL Lymph # (Auto) 0.7 (0.6-2.4) K/uL [place] # (Auto) 0.1 (0.0-0.8) K/uL Eos # (Auto) 0.0 (0.0-0.7) K/uL Baso # (Auto) 0.0 (0.0-0.1) K/uL Nucleated RBC % 0.0 /100WBC Nucleated RBCs # 0 K/uL ABG pH (7.35-7.45) ABG pCO2 (35-45) mmHG ABG pO2 (75-100) mmHG ABG HCO3 (22-26) mEq/L ABG Total CO2 ABG Base Excess (-2.0-2.0) Lactate (0.20-2.00) mmol/L Sodium 140 (136-145) mmol/L Potassium 4.6 (3.5-5.1) mmol/L Chloride 104 (98-107) mmol/L Carbon Dioxide 27.5 (21.0-32.0) mmol/L BUN 11 (7.0-18.0) mg/dL Creatinine 0.8 (0.6-1.0) mg/dL Est Cr Clr Drug Dosing 99.25 mL/min Estimated GFR (MDRD) > 60.0 ml/min Glucose 172 H (74-106) mg/dL Calcium 8.6 (8.5-10.1) mg/dL Phosphorus 3.9 (2.6-4.7) mg/dL Magnesium 2.3 (1.8-2.4) mg/dL Total Bilirubin 0.5 (0.2-1.0) mg/dL AST 986 H (15-37) IU/L ALT 803 H (14-63) IU/L Alkaline Phosphatase 207 H (46-116) U/L Troponin I (0.000-0.056) ng/mL B-Natriuretic Peptide (<100) PG/ML Total Protein 6.7 (6.4-8.2) g/dL Albumin 3.5 (3.4-5.0) g/dL Globulin 3.2 (2.6-4.0) g/dL Albumin/Globulin Ratio 1.1 (0.9-1.6) SARS Virus RNA (PCR) POSITIVE H (NEGATIVE) Result Diagrams: 11/17/19 05:47 11/17/19 05:47 Sepsis Event Note - Evaluation Sepsis Screening Result: No Definite Risk - Focused Exam Vital Signs: Vital Signs Temp Pulse Resp BP Pulse Ox Pulse Ox 11/17/19 05:00 97.6 F 78 19 119/75 97 11/17/19 02:20 97 97 11/17/19 01:15 97.6 F 78 20 120/82 97 11/16/19 23:57 86 20 118/77 97 11/16/19 22:31 84 20 127/86 98 11/16/19 21:13 82 20 103/71 94 L Problem List Initiated/Reviewed/Updated: Yes Orders Last 24hrs: Active Orders 24 hr Category Date Time Status Patient Status [ADT] Routine ADT 11/16/19 22:31 Active Ambulate [RC] ASDIRECTED Care 11/16/19 23:49 Active Ambulate [RC] PER UNIT ROUTINE Care 11/16/19 23:49 Active Antiembolic Devices [RC] PER UNIT ROUTINE Care 11/16/19 23:52 Active Oxygen Therapy [RC] PRN Care 11/16/19 23:49 Active Pulse Oximetry [RC] PRN Care 11/16/19 23:49 Active RT Post Treatment Assessment [RC] Click to Edit Care 11/17/19 00:13 Active RT Pre-Treatment Assessment [RC] Click to Edit Care 11/17/19 00:13 Active Telemetry Monitoring [Cardiac Monitoring] [RC] Q8H Care 11/16/19 22:38 Active VTE/DVT Education [RC] PER UNIT ROUTINE Care 11/16/19 23:49 Active Vital Signs [RC] Q4H Care 11/16/19 23:49 Active Regular Diet [DIET] Diet 11/17/19 Breakfast Active ABG [BLOOD GAS ARTERIAL] [BG] Stat Lab 11/16/19 22:13 Ordered CULTURE BLOOD [BC] Stat Lab 11/16/19 20:39 Received CULTURE BLOOD [BC] Stat Lab 11/16/19 20:48 Received ALPRAZolam [Xanax] Med 11/17/19 02:30 Active 1 mg PO BID Albuterol/Ipratropium [Combivent Respimat] Med 11/17/19 00:12 Active See Dose Instructions INH Q4H PRN Enoxaparin [Lovenox] Med 11/16/19 23:45 Active 80 mg SUBCUT Q12H Ondansetron [Zofran] Med 11/16/19 23:49 Active 4 mg IVPUSH Q4H PRN QUEtiapine [SEROqueL] Med 11/17/19 02:18 Active 100 mg PO BEDTIME Sodium Chloride 0.9% [Saline Flush] Med 11/16/19 19:29 Active 10 ml FLUSH ASDIRECTED PRN Sodium Chloride 0.9% [Saline Flush] Med 11/16/19 19:29 Active 2.5 ml FLUSH ASDIRECTED PRN busPIRone [Buspar] Med 11/17/19 02:30 Active 30 mg PO BID dexAMETHasone Med 11/17/19 09:00 Active 6 mg PO DAILY traZODone Med 11/17/19 03:15 Active 200 mg PO BEDTIME Blood Culture x2 Reflex Set [OM.PC] Stat Ot 11/16/19 19:30 Ordered Saline Lock Insert [OM.PC] Stat Ot 11/16/19 19:29 Ordered Sequential Compression Device [OM.PC] Per Unit Routine Ot 11/16/19 23:50 Ordered Medication Orders Albuterol/Ipratropium (Combivent Respimat) 0 gm INH Q4H PRN PRN Reason: Dyspnea Last Admin: 11/17/19 03:00 Dose: 1 puff Documented by: DERECK Alprazolam (Xanax) [address] [facility] Last Admin: 11/17/19 02:48 Dose: 1 mg Documented by: DERECK Buspirone HCl (Buspar) [address] [facility] Last Admin: 11/17/19 02:48 Dose: 30 mg Documented by: DERECK Dexamethasone (Dexamethasone) [address] [facility] Enoxaparin Sodium (Lovenox) [address] [facility] Last Admin: 11/17/19 01:52 Dose: 80 mg Documented by: DERECK Ondansetron HCl (Zofran) 4 mg IVPUSH Q4H PRN PRN Reason: Nausea/Vomiting Quetiapine Fumarate (Seroquel) [address] [facility] Last Admin: 11/17/19 02:49 Dose: 100 mg Documented by: DERECK Sodium Chloride (Saline Flush) 10 ml FLUSH ASDIRECTED PRN PRN Reason: Keep Vein Open Last Admin: 11/16/19 20:39 Dose: 10 ml Documented by: NAVEEN Sodium Chloride (Saline Flush) 2.5 ml FLUSH ASDIRECTED PRN PRN Reason: Keep Vein Open Last Admin: 11/16/19 20:39 Dose: 2.5 ml Documented by: NAVEEN Trazodone HCl (Trazodone) [address] [facility] Last Admin: 11/17/19 03:10 Dose: 200 mg Documented by: DERECK Assessment/Plan Comment:: Assessment 1. Acute hypoxic respiratory failure secondary to COVID 2. Significant transaminitis 3. Mild thrombocytopenia 4. Past medical history chronic pain, asthma, depression anxiety Plan Admit to observation. Full code I's and O's per routine. Vitals per routine DVT prophylaxis; full dose based off her weight Pantoprazole 40 daily 1. Continue to monitor oxygen saturations we will continue Combivent and supplemental O2 to maintain sats greater than 94%. Has already received 1 dose for 200 mg /first dose and to continue on dexamethasone 6 mg p.o. daily. 2. Transaminitis: 5 times upper limit: we will hold today's dose of her medicine. Continue to monitor repeat CMP in the morning.. Hepatitis panel will also be ordered to evaluate for other causes for LFT elevations. Continue to monitor for any other signs. Can consider restarting her Remedesevir if clinically not improving and LFTs are downtrending. Mild thrombocytopenia: continue to monitor; can titrate DVT meds if necessary <Roxana Tucker - Last Filed: 11/18/19 12:59> H&P History of Present Illness - General Admit Problem/Dx: Admission Diagnosis/Problem Admission Diagnosis/Problem Dyspnea and respiratory abnormality - History of Present Illness Initial Comments - Free Text/Narative: I performed a history and physical exam of the patient and discussed management with resident. I have reviewed the residents note and agree with documented findings and plan unless otherwise specified in my note. Exam - Vital Signs Vital Signs: Last Vital Signs Temp 36.5 C 11/18/19 08:43 Pulse 81 11/18/19 08:43 Resp 16 11/18/19 08:43 BP 101/69 11/18/19 08:43 Pulse Ox 95 11/18/19 08:43 - Patient Data Lab Results Last 24 hrs: Laboratory Results - last 24 hr 11/17/19 11/17/19 11/18/19 Range/Units 13:13 16:37 05:35 WBC 9.52 (4.0-11.0) K/uL RBC 4.08 L (4.30-5.90) M/uL Hgb 13.8 (12.0-16.0) g/dL Hct 39.9 (36.0-46.0) % MCV 97.8 (80.0-98.0) fL MCH 33.8 H (27.0-32.0) pg MCHC 34.6 (31.0-37.0) g/dL RDW Std Deviation 45.2 (28.0-62.0) fl RDW Coeff of Anai 13 (11.0-15.0) % Plt Count 146 L (150-400) K/uL MPV 10.10 (7.40-12.00) fL Neut % (Auto) 77.9 (48.0-80.0) % Lymph % (Auto) 14.9 L (16.0-40.0) % [place] % (Auto) 7.1 (0.0-15.0) % Eos % (Auto) 0.0 (0.0-7.0) % Baso % (Auto) 0.1 (0.0-1.5) % Neut # (Auto) 7.4 H (1.4-5.7) K/uL Lymph # (Auto) 1.4 (0.6-2.4) K/uL [place] # (Auto) 0.7 (0.0-0.8) K/uL Eos # (Auto) 0.0 (0.0-0.7) K/uL Baso # (Auto) 0.0 (0.0-0.1) K/uL Nucleated RBC % 0.0 /100WBC Nucleated RBCs # 0 K/uL Sodium (136-145) mmol/L Potassium (3.5-5.1) mmol/L Chloride (98-107) mmol/L Carbon Dioxide (21.0-32.0) mmol/L BUN (7.0-18.0) mg/dL Creatinine (0.6-1.0) mg/dL Est Cr Clr Drug Dosing mL/min Estimated GFR (MDRD) ml/min Glucose (74-106) mg/dL POC Glucose 151 H 129 H (60-110) mg/dL Calcium (8.5-10.1) mg/dL Total Bilirubin (0.2-1.0) mg/dL AST (15-37) IU/L ALT (14-63) IU/L Alkaline Phosphatase (46-116) U/L Total Protein (6.4-8.2) g/dL Albumin (3.4-5.0) g/dL Globulin (2.6-4.0) g/dL Albumin/Globulin Ratio (0.9-1.6) 11/18/19 Range/Units 05:35 WBC (4.0-11.0) K/uL RBC (4.30-5.90) M/uL Hgb (12.0-16.0) g/dL Hct (36.0-46.0) % MCV (80.0-98.0) fL MCH (27.0-32.0) pg MCHC (31.0-37.0) g/dL RDW Std Deviation (28.0-62.0) fl RDW Coeff of Anai (11.0-15.0) % Plt Count (150-400) K/uL MPV (7.40-12.00) fL Neut % (Auto) (48.0-80.0) % Lymph % (Auto) (16.0-40.0) % [place] % (Auto) (0.0-15.0) % Eos % (Auto) (0.0-7.0) % Baso % (Auto) (0.0-1.5) % Neut # (Auto) (1.4-5.7) K/uL Lymph # (Auto) (0.6-2.4) K/uL [place] # (Auto) (0.0-0.8) K/uL Eos # (Auto) (0.0-0.7) K/uL Baso # (Auto) (0.0-0.1) K/uL Nucleated RBC % /100WBC Nucleated RBCs # K/uL Sodium 141 (136-145) mmol/L Potassium 3.9 (3.5-5.1) mmol/L Chloride 105 (98-107) mmol/L Carbon Dioxide 28.0 (21.0-32.0) mmol/L BUN 14 (7.0-18.0) mg/dL Creatinine 0.6 (0.6-1.0) mg/dL Est Cr Clr Drug Dosing 132.34 mL/min Estimated GFR (MDRD) > 60.0 ml/min Glucose 146 H (74-106) mg/dL POC Glucose (60-110) mg/dL Calcium 8.6 (8.5-10.1) mg/dL Total Bilirubin 0.2 (0.2-1.0) mg/dL AST 196 H (15-37) IU/L ALT 467 H (14-63) IU/L Alkaline Phosphatase 159 H (46-116) U/L Total Protein 6.2 L (6.4-8.2) g/dL Albumin 3.2 L (3.4-5.0) g/dL Globulin 3.0 (2.6-4.0) g/dL Albumin/Globulin Ratio 1.1 (0.9-1.6) Result Diagrams: 11/18/19 05:35 11/18/19 05:35 Marco Results Last 24 hrs: Microbiology 11/16/19 20:48 Aerobic Blood Culture - Preliminary Blood - Venous - Lab Draw NO GROWTH AFTER 1 DAY Anaerobic Blood Culture - Preliminary NO GROWTH AFTER 1 DAY 11/16/19 20:39 Aerobic Blood Culture - Preliminary Blood - Venous NO GROWTH AFTER 1 DAY Anaerobic Blood Culture - Preliminary NO GROWTH AFTER 1 DAY Sepsis Event Note - Focused Exam Vital Signs: Vital Signs Temp Pulse Resp BP Pulse Ox 11/18/19 08:43 36.5 C 81 16 101/69 95 11/18/19 04:00 37.0 C 72 15 101/61 94 L Orders Last 24hrs: Active Orders 24 hr Category Date Time Status Communication Order [RC] ROUTINE Care 11/18/19 10:32 Active Ready for Discharge [RC] PER UNIT ROUTINE Care 11/18/19 11:07 Active CBC WITH AUTO DIFF [HEME] AM Lab 11/19/19 05:11 Ordered CBC WITH AUTO DIFF [HEME] AM Lab 11/20/19 05:11 Ordered COMPREHENSIVE METABOLIC PN,CMP [CHEM] AM Lab 11/19/19 05:11 Ordered COMPREHENSIVE METABOLIC PN,CMP [CHEM] AM Lab 11/20/19 05:11 Ordered HEPATITIS PANEL (4) [REF] DAILY Lab 11/18/19 05:35 Received Montelukast [Singulair] Med 11/17/19 21:00 Active 10 mg PO BEDTIME Patient's Own Medication [Ptom] Med 11/17/19 21:00 Active 0 each INH BID Patient's Own Medication [Ptom] Med 11/18/19 07:30 Active 1 each PO ACBREAKFAST Medication Orders Albuterol/Ipratropium (Combivent Respimat) 0 gm INH Q4H PRN PRN Reason: Dyspnea Last Admin: 11/17/19 21:02 Dose: 1 puff Documented by: Admin: 11/17/19 03:00 Dose: 1 puff Documented by: DERECK Alprazolam (Xanax) [address] [facility] Last Admin: 11/18/19 08:47 Dose: 1 mg Documented by: Admin: 11/17/19 20:56 Dose: 1 mg Documented by: Admin: 11/17/19 09:44 Dose: 1 mg Documented by: Admin: 11/17/19 02:48 Dose: 1 mg Documented by: DERECK Buspirone HCl (Buspar) [address] [facility] Last Admin: 11/18/19 09:16 Dose: 30 mg Documented by: Admin: 11/17/19 20:57 Dose: 30 mg Documented by: Admin: 11/17/19 09:43 Dose: 30 mg Documented by: Admin: 11/17/19 02:48 Dose: 30 mg Documented by: DERECK Dexamethasone (Dexamethasone) [address] [facility] Last Admin: 11/18/19 08:47 Dose: 6 mg Documented by: Admin: 11/17/19 09:44 Dose: 6 mg Documented by: KIMBERLEY Enoxaparin Sodium (Lovenox) [address] [facility] Last Admin: 11/17/19 23:52 Dose: 80 mg Documented by: Admin: 11/17/19 12:17 Dose: 80 mg Documented by: Admin: 11/17/19 01:52 Dose: 80 mg Documented by: DERECK Montelukast Sodium (Singulair) [address] [facility] Last Admin: 11/17/19 20:56 Dose: 10 mg Documented by: SRI Ondansetron HCl (Zofran) 4 mg IVPUSH Q4H PRN PRN Reason: Nausea/Vomiting Vortioxetine Hydrobromide [ Trintellix] 20 Mg [address] [facility] Last Admin: 11/18/19 08:53 Dose: 1 each Documented by: Admin: 11/17/19 09:50 Dose: 1 each Documented by: KIMBERLEY Fluticasone Propionate 44 Mcg/Puff 10.6 Gm Inhaler [address] [facility] Last Admin: 11/18/19 08:55 Dose: 2 each Documented by: Admin: 11/17/19 20:27 Dose: Not Given Documented by: JUDI Metaxalone 800 Mg (Tab) 1 each PO BID PRN PRN Reason: Muscle Spasm Last Admin: 11/17/19 21:02 Dose: 1 each Documented by: SRI Esomeprazole 40mg [address] [facility] Last Admin: 11/18/19 08:53 Dose: 1 each Documented by: LISA Quetiapine Fumarate (Seroquel) [address] [facility] Last Admin: 11/17/19 20:56 Dose: 100 mg Documented by: Admin: 11/17/19 02:49 Dose: 100 mg Documented by: DERECK Sodium Chloride (Saline Flush) 10 ml FLUSH ASDIRECTED PRN PRN Reason: Keep Vein Open Last Admin: 11/16/19 20:39 Dose: 10 ml Documented by: NAVEEN Sodium Chloride (Saline Flush) 2.5 ml FLUSH ASDIRECTED PRN PRN Reason: Keep Vein Open Last Admin: 11/16/19 20:39 Dose: 2.5 ml Documented by: NAVEEN Trazodone HCl (Trazodone) [address] [facility] Last Admin: 11/17/19 20:56 Dose: 200 mg Documented by: Admin: 11/17/19 03:10 Dose: 200 mg Documented by: DERECK
[2019-11-17] MEDS ORDERED: Fluticasone Propionate 44 MCG/Puff 10.6 GM Inhaler INH PRN (08:12)
[2019-11-17] MEDS ORDERED: Dexamethasone 10 MG/ML SDV IVPUSH SCH (09:00)
[2019-11-17] MEDS ORDERED: Fluticasone Propionate 44 MCG/Puff 10.6 GM Inhaler INH SCH (09:15)
[2019-11-17] MEDS: Dexamethasone 4 MG Tab PO SCH (09:44)
[2019-11-17] MEDS: Vortioxetine Hydrobromide [Trintellix] 20 MG PO SCH (09:50)
--- NOTE | 2019-11-17 11:34 | PCM.PN ---
- Patient Data Vitals - Most Recent: Last Vital Signs Temp 97.0 F 11/17/19 09:00 Pulse 65 11/17/19 09:00 Resp 19 11/17/19 09:00 BP 121/83 11/17/19 09:00 Pulse Ox 96 11/17/19 09:00 Weight - Most Recent: 86.183 kg I&O - Last 24 Hours: Intake & Output 11/16/19 11/17/19 11/17/19 22:59 06:59 14:59 Intake Total 600 Output Total 500 Balance 100 Lab Results Last 24 Hours: Laboratory Results - last 24 hr 11/16/19 11/16/19 11/16/19 Range/Units 20:25 20:25 20:25 WBC 8.39 (4.0-11.0) K/uL RBC 4.50 (4.30-5.90) M/uL Hgb 15.3 (12.0-16.0) g/dL Hct 43.6 (36.0-46.0) % MCV 96.9 (80.0-98.0) fL MCH 34.0 H (27.0-32.0) pg MCHC 35.1 (31.0-37.0) g/dL RDW Std Deviation 44.3 (28.0-62.0) fl RDW Coeff of Anai 13 (11.0-15.0) % Plt Count 172 (150-400) K/uL MPV 10.50 (7.40-12.00) fL Neut % (Auto) 65.0 (48.0-80.0) % Lymph % (Auto) 22.6 (16.0-40.0) % [place] % (Auto) 11.8 (0.0-15.0) % Eos % (Auto) 0.4 (0.0-7.0) % Baso % (Auto) 0.2 (0.0-1.5) % Neut # (Auto) 5.5 (1.4-5.7) K/uL Lymph # (Auto) 1.9 (0.6-2.4) K/uL [place] # (Auto) 1.0 H (0.0-0.8) K/uL Eos # (Auto) 0.0 (0.0-0.7) K/uL Baso # (Auto) 0.0 (0.0-0.1) K/uL Nucleated RBC % 0.0 /100WBC Nucleated RBCs # 0 K/uL ABG pH (7.35-7.45) ABG pCO2 (35-45) mmHG ABG pO2 (75-100) mmHG ABG HCO3 (22-26) mEq/L ABG Total CO2 ABG Base Excess (-2.0-2.0) Lactate 1.6 (0.20-2.00) mmol/L Sodium 140 (136-145) mmol/L Potassium 4.0 (3.5-5.1) mmol/L Chloride 101 (98-107) mmol/L Carbon Dioxide 28.6 (21.0-32.0) mmol/L BUN 13 (7.0-18.0) mg/dL Creatinine 0.9 (0.6-1.0) mg/dL Est Cr Clr Drug Dosing 88.23 mL/min Estimated GFR (MDRD) > 60.0 ml/min Glucose 103 (74-106) mg/dL Calcium 9.1 (8.5-10.1) mg/dL Phosphorus (2.6-4.7) mg/dL Magnesium (1.8-2.4) mg/dL Total Bilirubin 0.7 (0.2-1.0) mg/dL AST 328 H (15-37) IU/L ALT 202 H (14-63) IU/L Alkaline Phosphatase 160 H (46-116) U/L Troponin I < 0.050 (0.000-0.056) ng/mL B-Natriuretic Peptide (<100) PG/ML Total Protein 7.0 (6.4-8.2) g/dL Albumin 3.7 (3.4-5.0) g/dL Globulin 3.3 (2.6-4.0) g/dL Albumin/Globulin Ratio 1.1 (0.9-1.6) SARS Virus RNA (PCR) (NEGATIVE) 11/16/19 11/16/19 11/16/19 Range/Units 20:25 21:15 22:06 WBC (4.0-11.0) K/uL RBC (4.30-5.90) M/uL Hgb (12.0-16.0) g/dL Hct (36.0-46.0) % MCV (80.0-98.0) fL MCH (27.0-32.0) pg MCHC (31.0-37.0) g/dL RDW Std Deviation (28.0-62.0) fl RDW Coeff of Anai (11.0-15.0) % Plt Count (150-400) K/uL MPV (7.40-12.00) fL Neut % (Auto) (48.0-80.0) % Lymph % (Auto) (16.0-40.0) % [place] % (Auto) (0.0-15.0) % Eos % (Auto) (0.0-7.0) % Baso % (Auto) (0.0-1.5) % Neut # (Auto) (1.4-5.7) K/uL Lymph # (Auto) (0.6-2.4) K/uL [place] # (Auto) (0.0-0.8) K/uL Eos # (Auto) (0.0-0.7) K/uL Baso # (Auto) (0.0-0.1) K/uL Nucleated RBC % /100WBC Nucleated RBCs # K/uL ABG pH 7.450 7.472 H (7.35-7.45) ABG pCO2 42 39 (35-45) mmHG ABG pO2 37 L* 95 (75-100) mmHG ABG HCO3 29 H 28 H (22-26) mEq/L ABG Total CO2 26.3 24.8 ABG Base Excess 4.9 H 4.3 H (-2.0-2.0) Lactate (0.20-2.00) mmol/L Sodium (136-145) mmol/L Potassium (3.5-5.1) mmol/L Chloride (98-107) mmol/L Carbon Dioxide (21.0-32.0) mmol/L BUN (7.0-18.0) mg/dL Creatinine (0.6-1.0) mg/dL Est Cr Clr Drug Dosing mL/min Estimated GFR (MDRD) ml/min Glucose (74-106) mg/dL Calcium (8.5-10.1) mg/dL Phosphorus (2.6-4.7) mg/dL Magnesium (1.8-2.4) mg/dL Total Bilirubin (0.2-1.0) mg/dL AST (15-37) IU/L ALT (14-63) IU/L Alkaline Phosphatase (46-116) U/L Troponin I (0.000-0.056) ng/mL B-Natriuretic Peptide 4 (<100) PG/ML Total Protein (6.4-8.2) g/dL Albumin (3.4-5.0) g/dL Globulin (2.6-4.0) g/dL Albumin/Globulin Ratio (0.9-1.6) SARS Virus RNA (PCR) (NEGATIVE) 11/16/19 11/17/19 11/17/19 Range/Units 22:37 05:47 05:47 WBC 4.87 (4.0-11.0) K/uL RBC 4.25 L (4.30-5.90) M/uL Hgb 14.0 (12.0-16.0) g/dL Hct 41.5 (36.0-46.0) % MCV 97.6 (80.0-98.0) fL MCH 32.9 H (27.0-32.0) pg MCHC 33.7 (31.0-37.0) g/dL RDW Std Deviation 45.2 (28.0-62.0) fl RDW Coeff of Anai 13 (11.0-15.0) % Plt Count 136 L (150-400) K/uL MPV 10.00 (7.40-12.00) fL Neut % (Auto) 83.5 H (48.0-80.0) % Lymph % (Auto) 13.8 L (16.0-40.0) % [place] % (Auto) 2.7 (0.0-15.0) % Eos % (Auto) 0.0 (0.0-7.0) % Baso % (Auto) 0.0 (0.0-1.5) % Neut # (Auto) 4.1 (1.4-5.7) K/uL Lymph # (Auto) 0.7 (0.6-2.4) K/uL [place] # (Auto) 0.1 (0.0-0.8) K/uL Eos # (Auto) 0.0 (0.0-0.7) K/uL Baso # (Auto) 0.0 (0.0-0.1) K/uL Nucleated RBC % 0.0 /100WBC Nucleated RBCs # 0 K/uL ABG pH (7.35-7.45) ABG pCO2 (35-45) mmHG ABG pO2 (75-100) mmHG ABG HCO3 (22-26) mEq/L ABG Total CO2 ABG Base Excess (-2.0-2.0) Lactate (0.20-2.00) mmol/L Sodium 140 (136-145) mmol/L Potassium 4.6 (3.5-5.1) mmol/L Chloride 104 (98-107) mmol/L Carbon Dioxide 27.5 (21.0-32.0) mmol/L BUN 11 (7.0-18.0) mg/dL Creatinine 0.8 (0.6-1.0) mg/dL Est Cr Clr Drug Dosing 99.25 mL/min Estimated GFR (MDRD) > 60.0 ml/min Glucose 172 H (74-106) mg/dL Calcium 8.6 (8.5-10.1) mg/dL Phosphorus 3.9 (2.6-4.7) mg/dL Magnesium 2.3 (1.8-2.4) mg/dL Total Bilirubin 0.5 (0.2-1.0) mg/dL AST 986 H (15-37) IU/L ALT 803 H (14-63) IU/L Alkaline Phosphatase 207 H (46-116) U/L Troponin I (0.000-0.056) ng/mL B-Natriuretic Peptide (<100) PG/ML Total Protein 6.7 (6.4-8.2) g/dL Albumin 3.5 (3.4-5.0) g/dL Globulin 3.2 (2.6-4.0) g/dL Albumin/Globulin Ratio 1.1 (0.9-1.6) SARS Virus RNA (PCR) POSITIVE H (NEGATIVE) Med Orders - Current: Current Medications Albuterol/Ipratropium (Combivent Respimat) 0 gm INH Q4H PRN PRN Reason: Dyspnea Last Admin: 11/17/19 03:00 Dose: 1 puff Documented by: Alprazolam (Xanax) 1 mg PO BID [facility] Last Admin: 11/17/19 09:44 Dose: 1 mg Documented by: Buspirone HCl (Buspar) 30 mg PO BID [facility] Last Admin: 11/17/19 09:43 Dose: 30 mg Documented by: Dexamethasone (Dexamethasone) 6 mg PO DAILY [facility] Last Admin: 11/17/19 09:44 Dose: 6 mg Documented by: Enoxaparin Sodium (Lovenox) 80 mg SUBCUT Q12H [facility] Last Admin: 11/17/19 01:52 Dose: 80 mg Documented by: Montelukast Sodium (Singulair) 10 mg PO BEDTIME [facility] Ondansetron HCl (Zofran) 4 mg IVPUSH Q4H PRN PRN Reason: Nausea/Vomiting Vortioxetine Hydrobromide [ Trintellix] 20 Mg 1 each PO DAILY [facility] Last Admin: 11/17/19 09:50 Dose: 1 each Documented by: Fluticasone Propionate 44 Mcg/Puff 10.6 Gm Inhaler 0 each INH BID [facility] Metaxalone 800 Mg (Tab) 1 each PO BID PRN PRN Reason: Muscle Spasm Esomeprazole 40mg 1 each PO ACBREAKFAST [facility] Quetiapine Fumarate (Seroquel) 100 mg PO BEDTIME [facility] Last Admin: 11/17/19 02:49 Dose: 100 mg Documented by: Sodium Chloride (Saline Flush) 10 ml FLUSH ASDIRECTED PRN PRN Reason: Keep Vein Open Last Admin: 11/16/19 20:39 Dose: 10 ml Documented by: Sodium Chloride (Saline Flush) 2.5 ml FLUSH ASDIRECTED PRN PRN Reason: Keep Vein Open Last Admin: 11/16/19 20:39 Dose: 2.5 ml Documented by: Trazodone HCl (Trazodone) 200 mg PO BEDTIME [facility] Last Admin: 11/17/19 03:10 Dose: 200 mg Documented by: Discontinued Medications Dexamethasone (Dexamethasone) 10 mg IVPUSH ONETIME ONE Stop: 11/16/19 22:36 Last Admin: 11/16/19 22:45 Dose: 10 mg Documented by: Dexamethasone (Dexamethasone) 6 mg IVPUSH DAILY [facility] Fluticasone Propionate (Flovent Hfa 44 Mcg) 0 gm INH BID PRN PRN Reason: Cough Fluticasone Propionate (Flovent Hfa 44 Mcg) 0 gm INH BID [facility] Guaifenesin/Codeine Phosphate (Robitussin Ac) 5 ml PO ONETIME ONE Stop: 11/16/19 20:49 Last Admin: 11/16/19 20:55 Dose: 5 ml Documented by: Sodium Chloride (Normal Saline) 1,000 mls @ 999 mls/hr IV .Bolus ONE Stop: 11/16/19 20:29 Last Admin: 11/16/19 20:15 Dose: 999 mls/hr Documented by: REMDESIVIR (EUA) 200 mg/ (Sodium Chloride) 250 mls @ 250 mls/hr IV ONETIME ONE Stop: 11/16/19 23:03 Last Admin: 11/17/19 01:41 Dose: 250 mls/hr Documented by: Ketorolac Tromethamine (Toradol) 30 mg IVPUSH ONETIME ONE Stop: 11/16/19 19:30 Last Admin: 11/16/19 20:14 Dose: 30 mg Documented by: Metaxalone (Skelaxin) 800 mg PO BID PRN PRN Reason: Muscle Spasm Morphine Sulfate (Morphine) 2 mg IVPUSH ONETIME ONE Stop: 11/16/19 19:30 Last Admin: 11/16/19 20:14 Dose: 2 mg Documented by: Trazodone HCl (Trazodone Hcl) 200 mg PO BEDTIME [facility] Last Admin: 11/17/19 05:21 Dose: Not Given Documented by: Sepsis Event Note - Evaluation Sepsis Screening Result: No Definite Risk - Focused Exam Vital Signs: Vital Signs Temp Pulse Resp BP Pulse Ox Pulse Ox 11/17/19 09:00 97.0 F 65 19 121/83 96 11/17/19 05:00 97.6 F 78 19 119/75 97 11/17/19 02:20 97 97 11/17/19 01:15 97.6 F 78 20 120/82 97 11/16/19 23:57 86 20 118/77 97 - My Orders Last 24 Hours: My Active Orders 11/17/19 08:14 RT Post Treatment Assessment [RC] Click to Edit RT Pre-Treatment Assessment [RC] Click to Edit 11/17/19 09:00 Patient's Own Medication [Ptom] 1 each PO DAILY 11/17/19 10:14 Patient's Own Medication [Ptom] 1 each PO BID PRN 11/17/19 11:33 Code Status [Resuscitation Status] Routine 11/17/19 21:00 Montelukast [Singulair] 10 mg PO BEDTIME 11/18/19 05:11 CBC WITH AUTO DIFF [HEME] AM COMPREHENSIVE METABOLIC PN,CMP [CHEM] AM 11/18/19 11:33 HEPATITIS PANEL (4) [REF] DAILY 11/19/19 05:11 CBC WITH AUTO DIFF [HEME] AM COMPREHENSIVE METABOLIC PN,CMP [CHEM] AM 11/20/19 05:11 CBC WITH AUTO DIFF [HEME] AM COMPREHENSIVE METABOLIC PN,CMP [CHEM] AM
[2019-11-17] MEDS: Fluticasone Propionate 44 MCG/Puff 10.6 GM Inhaler INH SCH (20:27)
[2019-11-17] MEDS ORDERED: Montelukast 10 MG Tab PO SCH (21:00)
[2019-11-18 06:25] LABS: BLOOD UREA NITROGEN,BUN 14 mg/dL (7.0-18.0); CHLORIDE,CL 105 mmol/L (98-107); GLUCOSE RANDOM 146 mg/dL (74-106); POTASSIUM,K 3.9 mmol/L (3.5-5.1); SODIUM,NA 141 mmol/L (136-145)
[2019-11-18] MEDS ORDERED: ESOMEPRAZOLE 40MG PO SCH (07:30)
[2019-11-18] MEDS: ALPRAZolam 0.5 MG Tab PO SCH (08:47)
[2019-11-18] MEDS: Dexamethasone 4 MG Tab PO SCH (08:47)
[2019-11-18] MEDS: Vortioxetine Hydrobromide [Trintellix] 20 MG PO SCH (08:53)
[2019-11-18] MEDS: Fluticasone Propionate 44 MCG/Puff 10.6 GM Inhaler INH SCH (08:55)
[2019-11-18] MEDS: busPIRone 5 MG Tab PO SCH (09:16)
--- NOTE | 2019-11-18 11:04 | PCM.DCSUM1 ---
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 Patient was exposed to a patient 14 days earlier and was tested positive for COVID once in the outpatient setting and once in the ED on arrival. Symptoms began as headaches and rhinorrhea with sinus pressure in 3 to 4 days earlier and was started on a Medrol Dosepak and antibiotics; mentions however shortness of breath continued to worsen and proceeded to the ED. Patient otherwise denies any GI symptoms including diarrhea, constipation but is complaining of cough and pleuritic type chest pain. Denies any current use of tobacco and or alcohol ED course: EKG did not demonstrate any ST elevation depressions. Chest x-ray negative for any acute infiltrates and effusions Received 1 L normal saline, Toradol and morphine for pain control of pleuritic chest pain. Bedside: Patient endorsing feeling fatigued and mild shortness of breath; no longer using supplemental O2 at bedside but does feel hot with mild sweats; afebrile currently. No other acute distress Hospital course: Patient throughout stay was started on dexamethasone + Remdesevir. However on following day of admission transaminitis was appreciated with AST of greater than 800. remdesevir was held with significant improvement of her transaminitis on following day CMP; however since patient was not requiring any oxygen and was feeling better; patient requested discharge and was discharged in stable condition. Patient was discharged with additional 7 days of dexamethasone to complete 10-day course. Advised to follow primary care when applicable and to self quarantine for the next 10 to 14 days. Patient otherwise is afebrile, saturations were greater than 94% and was not having any overt significant symptoms except a mild headache responding to [id number] medications. Hepatitis panel was ordered to evaluate for transaminitis however this is most likely secondary to Remdesevir; significant improvement after holding 1 dose; hepatitis panel still pending. Patient otherwise discharged in stable condition with no acute overt symptoms. Rx for Dexamethasone and daily 81 mg daily ASA x 30 days sent as well. Discharged home on room air - Discharge Data Discharge Date: 11/18/19 Discharge Disposition: Home, Self-Care 01 Condition: Fair - Referral to Home Health Primary Care Physician: PCP None - Discharge Plan Prescriptions/Med Rec: dexAMETHasone [Dexamethasone] 6 mg PO DAILY 8 Days #8 tablet Aspirin [Low Dose Aspirin EC] 81 mg PO DAILY 30 Days #30 tablet. Home Medications: Home Meds ALPRAZolam [Xanax] 1 mg PO BID 07/11/16 [History] Esomeprazole [NexIUM] 40 mg PO ACBREAKFAST 02/19/17 [History] traZODone HCl [Trazodone HCl] 2 tab PO BEDTIME 02/19/17 [History] busPIRone [Buspar] 30 mg PO BID 08/14/17 [History] Vortioxetine Hydrobromide [Trintellix] 20 mg PO DAILY 04/02/18 [History] Albuterol Sulfate [Proair Hfa] 1 - 2 puff INH ASDIRECTED PRN 07/22/18 [History] Diclofenac Sodium [Voltaren 1% Gel] 1 applic TOP ASDIRECTED PRN 07/22/18 [History] Fluticasone Propionate [Flonase Allergy Relief] 1 spray NASBOTH DAILY 07/22/18 [History] Fluticasone Propionate [Flovent HFA] 2 puff INH BID PRN 07/22/18 [History] Ketamine Hcl Powder 1 applic TOP ASDIRECTED PRN 07/22/18 [History] Lidocaine/Prilocaine [Lidocaine-Prilocaine Cream] 1 applic TOP ASDIRECTED PRN 07/22/18 [History] Montelukast Sodium 10 mg PO BEDTIME 07/22/18 [History] estradioL [Estrace] 2 mg PO DAILY 07/22/18 [History] Meclizine [Antivert] 12.5 mg PO TID #30 tab 03/19/19 [Rx] Phentermine HCl 37.5 mg PO DAILY 03/19/19 [History] Metaxalone [Metaxall] 800 mg PO BID PRN 11/16/19 [History] QUEtiapine Fumarate [Seroquel] 100 mg PO BEDTIME 11/16/19 [History] Aspirin [Low Dose Aspirin EC] 81 mg PO DAILY 30 Days #30 tablet. 11/18/19 [Rx] Patient's Own Medication [Ptom] 1 each PO ACBREAKFAST each 11/18/19 [Rx] dexAMETHasone [Dexamethasone] 6 mg PO DAILY 8 Days #8 tablet 11/18/19 [Rx] Forms: ED Department Discharge Referrals: PCP,None [Primary Care Provider] - - Discharge Summary/Plan Comment DC Time >30 min.: No - Patient Data Vitals - Most Recent: Last Vital Signs Temp 97.7 F 11/18/19 08:43 Pulse 81 11/18/19 08:43 Resp 16 11/18/19 08:43 BP 101/69 11/18/19 08:43 Pulse Ox 95 11/18/19 08:43 Weight - Most Recent: 86.183 kg I&O - Last 24 hours: Intake & Output 11/17/19 11/18/19 11/18/19 22:59 06:59 14:59 Intake Total 1280 400 Output Total 1500 600 Balance -220 -200 Lab Results - Last 24 hrs: Laboratory Results - last 24 hr 11/17/19 11/17/19 11/18/19 Range/Units 13:13 16:37 05:35 WBC 9.52 (4.0-11.0) K/uL RBC 4.08 L (4.30-5.90) M/uL Hgb 13.8 (12.0-16.0) g/dL Hct 39.9 (36.0-46.0) % MCV 97.8 (80.0-98.0) fL MCH 33.8 H (27.0-32.0) pg MCHC 34.6 (31.0-37.0) g/dL RDW Std Deviation 45.2 (28.0-62.0) fl RDW Coeff of Anai 13 (11.0-15.0) % Plt Count 146 L (150-400) K/uL MPV 10.10 (7.40-12.00) fL Neut % (Auto) 77.9 (48.0-80.0) % Lymph % (Auto) 14.9 L (16.0-40.0) % [place] % (Auto) 7.1 (0.0-15.0) % Eos % (Auto) 0.0 (0.0-7.0) % Baso % (Auto) 0.1 (0.0-1.5) % Neut # (Auto) 7.4 H (1.4-5.7) K/uL Lymph # (Auto) 1.4 (0.6-2.4) K/uL [place] # (Auto) 0.7 (0.0-0.8) K/uL Eos # (Auto) 0.0 (0.0-0.7) K/uL Baso # (Auto) 0.0 (0.0-0.1) K/uL Nucleated RBC % 0.0 /100WBC Nucleated RBCs # 0 K/uL Sodium (136-145) mmol/L Potassium (3.5-5.1) mmol/L Chloride (98-107) mmol/L Carbon Dioxide (21.0-32.0) mmol/L BUN (7.0-18.0) mg/dL Creatinine (0.6-1.0) mg/dL Est Cr Clr Drug Dosing mL/min Estimated GFR (MDRD) ml/min Glucose (74-106) mg/dL POC Glucose 151 H 129 H (60-110) mg/dL Calcium (8.5-10.1) mg/dL Total Bilirubin (0.2-1.0) mg/dL AST (15-37) IU/L ALT (14-63) IU/L Alkaline Phosphatase (46-116) U/L Total Protein (6.4-8.2) g/dL Albumin (3.4-5.0) g/dL Globulin (2.6-4.0) g/dL Albumin/Globulin Ratio (0.9-1.6) 11/18/19 Range/Units 05:35 WBC (4.0-11.0) K/uL RBC (4.30-5.90) M/uL Hgb (12.0-16.0) g/dL Hct (36.0-46.0) % MCV (80.0-98.0) fL MCH (27.0-32.0) pg MCHC (31.0-37.0) g/dL RDW Std Deviation (28.0-62.0) fl RDW Coeff of Anai (11.0-15.0) % Plt Count (150-400) K/uL MPV (7.40-12.00) fL Neut % (Auto) (48.0-80.0) % Lymph % (Auto) (16.0-40.0) % [place] % (Auto) (0.0-15.0) % Eos % (Auto) (0.0-7.0) % Baso % (Auto) (0.0-1.5) % Neut # (Auto) (1.4-5.7) K/uL Lymph # (Auto) (0.6-2.4) K/uL [place] # (Auto) (0.0-0.8) K/uL Eos # (Auto) (0.0-0.7) K/uL Baso # (Auto) (0.0-0.1) K/uL Nucleated RBC % /100WBC Nucleated RBCs # K/uL Sodium 141 (136-145) mmol/L Potassium 3.9 (3.5-5.1) mmol/L Chloride 105 (98-107) mmol/L Carbon Dioxide 28.0 (21.0-32.0) mmol/L BUN 14 (7.0-18.0) mg/dL Creatinine 0.6 (0.6-1.0) mg/dL Est Cr Clr Drug Dosing 132.34 mL/min Estimated GFR (MDRD) > 60.0 ml/min Glucose 146 H (74-106) mg/dL POC Glucose (60-110) mg/dL Calcium 8.6 (8.5-10.1) mg/dL Total Bilirubin 0.2 (0.2-1.0) mg/dL AST 196 H (15-37) IU/L ALT 467 H (14-63) IU/L Alkaline Phosphatase 159 H (46-116) U/L Total Protein 6.2 L (6.4-8.2) g/dL Albumin 3.2 L (3.4-5.0) g/dL Globulin 3.0 (2.6-4.0) g/dL Albumin/Globulin Ratio 1.1 (0.9-1.6) SLIME Results - Last 24 hrs: Microbiology 11/16/19 20:48 Aerobic Blood Culture - Preliminary Blood - Venous - Lab Draw NO GROWTH AFTER 1 DAY Anaerobic Blood Culture - Preliminary NO GROWTH AFTER 1 DAY 11/16/19 20:39 Aerobic Blood Culture - Preliminary Blood - Venous NO GROWTH AFTER 1 DAY Anaerobic Blood Culture - Preliminary NO GROWTH AFTER 1 DAY Med Orders - Current: Current Medications Albuterol/Ipratropium (Combivent Respimat) 0 gm INH Q4H PRN PRN Reason: Dyspnea Last Admin: 11/17/19 21:02 Dose: 1 puff Documented by: Alprazolam (Xanax) 1 mg PO BID [facility] Last Admin: 11/18/19 08:47 Dose: 1 mg Documented by: Buspirone HCl (Buspar) 30 mg PO BID [facility] Last Admin: 11/18/19 09:16 Dose: 30 mg Documented by: Dexamethasone (Dexamethasone) 6 mg PO DAILY [facility] Last Admin: 11/18/19 08:47 Dose: 6 mg Documented by: Enoxaparin Sodium (Lovenox) 80 mg SUBCUT Q12H [facility] Last Admin: 11/17/19 23:52 Dose: 80 mg Documented by: Montelukast Sodium (Singulair) 10 mg PO BEDTIME [facility] Last Admin: 11/17/19 20:56 Dose: 10 mg Documented by: Ondansetron HCl (Zofran) 4 mg IVPUSH Q4H PRN PRN Reason: Nausea/Vomiting Vortioxetine Hydrobromide [ Trintellix] 20 Mg 1 each PO DAILY [facility] Last Admin: 11/18/19 08:53 Dose: 1 each Documented by: Fluticasone Propionate 44 Mcg/Puff 10.6 Gm Inhaler 0 each INH BID [facility] Last Admin: 11/18/19 08:55 Dose: 2 each Documented by: Metaxalone 800 Mg (Tab) 1 each PO BID PRN PRN Reason: Muscle Spasm Last Admin: 11/17/19 21:02 Dose: 1 each Documented by: Esomeprazole 40mg 1 each PO ACBREAKFAST [facility] Last Admin: 11/18/19 08:53 Dose: 1 each Documented by: Quetiapine Fumarate (Seroquel) 100 mg PO BEDTIME [facility] Last Admin: 11/17/19 20:56 Dose: 100 mg Documented by: Sodium Chloride (Saline Flush) 10 ml FLUSH ASDIRECTED PRN PRN Reason: Keep Vein Open Last Admin: 11/16/19 20:39 Dose: 10 ml Documented by: Sodium Chloride (Saline Flush) 2.5 ml FLUSH ASDIRECTED PRN PRN Reason: Keep Vein Open Last Admin: 11/16/19 20:39 Dose: 2.5 ml Documented by: Trazodone HCl (Trazodone) 200 mg PO BEDTIME [facility] Last Admin: 11/17/19 20:56 Dose: 200 mg Documented by: Discontinued Medications Dexamethasone (Dexamethasone) 10 mg IVPUSH ONETIME ONE Stop: 11/16/19 22:36 Last Admin: 11/16/19 22:45 Dose: 10 mg Documented by: Dexamethasone (Dexamethasone) 6 mg IVPUSH DAILY [facility] Fluticasone Propionate (Flovent Hfa 44 Mcg) 0 gm INH BID PRN PRN Reason: Cough Fluticasone Propionate (Flovent Hfa 44 Mcg) 0 gm INH BID [facility] Last Admin: 11/17/19 09:45 Dose: 1 puff Documented by: Guaifenesin/Codeine Phosphate (Robitussin Ac) 5 ml PO ONETIME ONE Stop: 11/16/19 20:49 Last Admin: 11/16/19 20:55 Dose: 5 ml Documented by: Sodium Chloride (Normal Saline) 1,000 mls @ 999 mls/hr IV .Bolus ONE Stop: 11/16/19 20:29 Last Admin: 11/16/19 20:15 Dose: 999 mls/hr Documented by: REMDESIVIR (EUA) 200 mg/ (Sodium Chloride) 250 mls @ 250 mls/hr IV ONETIME ONE Stop: 11/16/19 23:03 Last Admin: 11/17/19 01:41 Dose: 250 mls/hr Documented by: Ketorolac Tromethamine (Toradol) 30 mg IVPUSH ONETIME ONE Stop: 11/16/19 19:30 Last Admin: 11/16/19 20:14 Dose: 30 mg Documented by: Metaxalone (Skelaxin) 800 mg PO BID PRN PRN Reason: Muscle Spasm Morphine Sulfate (Morphine) 2 mg IVPUSH ONETIME ONE Stop: 11/16/19 19:30 Last Admin: 11/16/19 20:14 Dose: 2 mg Documented by: Trazodone HCl (Trazodone Hcl) 200 mg PO BEDTIME [facility] Last Admin: 11/17/19 05:21 Dose: Not Given Documented by:
[2019-11-18] MEDS: Enoxaparin 100 MG/1 ML Syringe SUBCUT SCH (13:18)
[2019-11-18 15:25] VITALS: BP 101/65; PULSE 78
== END 2019-11-18 15:20 | disposition home or self-care (01) | DRG 177 ==
LOC: MW.ED 18:18 → MW.MS 22:31
PROVIDERS: ADMIT Student in an Organized Health Care Education/Training Program; ATTEND Student in an Organized Health Care Education/Training Program
DX: U07.1 COVID-19 (principal); J96.01 Acute respiratory failure with hypoxia; D69.6 Thrombocytopenia, unspecified; G89.29 Other chronic pain; J45.909 Unspecified asthma, uncomplicated; F41.9 Anxiety disorder, unspecified; F32.9 Major depressive disorder, single episode, unspecified; R74.8 Abnormal levels of other serum enzymes; H54.7 Unspecified visual loss; K21.9 Gastro-esophageal reflux disease without esophagitis; Z87.442 Personal history of urinary calculi; M19.90 Unspecified osteoarthritis, unspecified site; M54.9 Dorsalgia, unspecified; G43.909 Migraine, unspecified, not intractable, without status migrainosus; G47.00 Insomnia, unspecified; E66.9 Obesity, unspecified; Z90.710 Acquired absence of both cervix and uterus; Z90.49 Acquired absence of other specified parts of digestive tract; Z68.26 Body mass index [BMI] 26.0-26.9, adult; Z79.82 Long term (current) use of aspirin; Z79.899 Other long term (current) drug therapy; Z88.0 Allergy status to penicillin; Z91.09 Other allergy status, other than to drugs and biological substances
CPT/HCPCS: 36415; 36600; 71045; 71045-26; 80053; 80074; 82803; 82962; 83605; 83735; 83880; 84100; 84484; 85025; 87040; 93005; 96361; 96374; 96375; 99283; 99285-25; A9270-GY; J1100; J1650; J1885; J2270; J7030; J7050; J8540; U0002

== ENCOUNTER 2019-11-30 14:54 | Emergency (ER) | payer OTHER ==
[2019-11-30] MEDS ORDERED: Ondansetron 4 MG/2 ML SDV IVPUSH ONE (15:25)
--- NOTE | 2019-11-30 15:30 | EDM.PDOC ---
ED HPI GENERAL MEDICAL PROBLEM - General Chief Complaint: Respiratory Problem Stated Complaint: SOB WEAKNESS SWELLING IN HANDS Time Seen by Provider: 11/30/19 14:57 Source of Information: Reports: Patient History Limitations: Reports: No Limitations - History of Present Illness INITIAL COMMENTS - FREE TEXT/NARRATIVE: HISTORY AND PHYSICAL: History of present illness: Patient is a 44-year-old female who presents to the emergency room with multiple complaints. On 11/11/2019 she was diagnosed with COVID-19 and was admitted to our hospital for low oxygen saturation. She states since her discharge she felt somewhat better but over the past 1 week her symptoms have returned and progressively have gotten worse. She is experiencing cough, shortness of breath, feeling like her face, hands and feet are swollen. She has a pain to her low anterior chest into her upper abdomen. Today she started to have headache, nausea and vomiting. States she has had some hard stools, urinary frequency and urgency. Today she states she was outside, not doing anything in particular, and felt like her heart was racing. When she went inside her pulse was 150 and she felt unwell, this resolved on its own. She presents to the emergency room today as "this is the worst I felt so far". Patient denies any fever, chills, change in vision, syncope or near syncope. Denies any chest pain, back pain, shortness of breath or cough. Has not noted any blood in urine or stool. Patient has been eating and drinking appropriately. Review of systems: As per history of present illness and below otherwise all systems reviewed and negative. Past medical history: As per history of present illness and as reviewed below otherwise noncontributory. Surgical history: As per history of present illness and as reviewed below otherwise noncontributory. Social history: See social history for further information Family history: As per history of present illness and as reviewed below otherwise n oncontributory. Physical exam: General: Well developed and well nourished. Alert and orientated x 3. Nontoxic in appearance and in no acute distress. Vital signs are stable and have been reviewed by me. Nursing notes were reviewed. HEENT: Atraumatic, normocephalic, pupils equal and reactive bilaterally, negative for conjunctival pallor or scleral icterus, mucous membranes moist, TMs normal bilaterally, throat clear, neck supple, nontender, trachea midline. No drooling or trismus noted. No meningeal signs. No hot potato voice noted. Lungs: Clear to auscultation, breath sounds equal bilaterally, chest nontender. Normal work of breathing, no accessory muscles used. Heart: S1S2, regular rate and rhythm without overt murmur Abdomen: Soft, nondistended, left upper quadrant tenderness. Negative for masses or hepatosplenomegaly. Negative for costovertebral tenderness. Skin: Intact, warm, dry. No lesions or rashes noted. Hematologic: No petechiae or purpra. Mucosa appropriate color and normal nail bed color and refill. Extremities: Atraumatic, moves all extremities per self without difficulty or deficits, negative for cords or calf pain. Patient is ambulatory into the emergency room without difficulty or deficit. Able to rock back on heels and walk on toes. Denies any urinary or fecal incontinence. Denies any numbness, tingling or saddle paresthesia. No concerns of serious infection, fracture or cord compression, or cauda equina syndrome. Deep tendon reflexes brisk bilaterally. Neurovascular unremarkable. Neuro: Awake, alert, oriented. Cranial nerves II through XII unremarkable. Cerebellum unremarkable. Motor and sensory unremarkable throughout. Exam nonfocal. Psychiatric: Mood and affect are appropriate. Normal thought process. Answering questions appropriately. Notes: Patient's lab work is unremarkable. CT of the chest shows. Abdomen and pelvis shows slight increased stool within the colon. Nothing acute is appreciated of the abdomen and pelvis. I have spoken with the patient to discussed today's findings, in addition to providing specific details for plan of care. Reassessment at the time of disposition demonstrates that the patient is in no acute distress. The patient has remained stable throughout the entire ED visit and is without objective evidence for acute process requiring urgent intervention or hospitalization. The patient is stable for discharge, counseling was provided and we discussed in great detail signs and symptoms that would prompt them to return to the Emergency Department. She states the only medication she is currently taking in regards to her respiratory illness is a Combivent inhaler and she has 1 or 2 doses of Phenergan with codeine left from her previous prescription. She does have a follow-up appointment from her pre vious hospitalization for 12/02/[address] Rangel. Medication, follow up and supportive care measures were reviewed and discussed. Voices understanding and is agreeable to plan of care. Denies any further questions or concerns at this time. Diagnostics: CBC, CMP, Troponin, EKG, CT Chest, CT abd/pelvis, Lactate Therapeutics: Zofran, Toradol Prescription: None Impression: COVID-19 Constipation Plan: 1. Your lab work, EKG and CT of the chest abdomen and pelvis are within normal limits with the exception of increased stool in the colon. Your vital signs and oxygen saturation are well enough that you were able to monitor your symptoms at home. Continue to monitor for trouble breathing, new confusion or inability to arouse, bluish lips or face or any of the other symptoms we discussed -if this occurs please return to the emergency room. 2. Continue taking your home medications as directed. You can take NyQuil during the evening to help get a restful night sleep. 3. You may alternate Tylenol and ibuprofen as needed for pain and fever management. 4. The [place] [facility] Hotline phone number , They are open Saturday - Saturday 7am - 7pm. Follow up with your primary care provider for re-evaluation and re-testing after the 2 week quarantine and discuss when you should be seen. Definitive disposition and diagnosis as appropriate pending reevaluation and review of above. diaphram Pain Score (Numeric/FACES): 7 - Related Data Allergies Allergy/AdvReac Type Severity Reaction Status Date / Time Penicillins Allergy Rash Verified 11/30/19 15:02 dermabond Allergy Rash Uncoded 11/17/19 01:23 Home Meds: Home Meds ALPRAZolam [Xanax] 1 mg PO BID 07/11/16 [History] Esomeprazole [NexIUM] 40 mg PO ACBREAKFAST 02/19/17 [History] traZODone HCl [Trazodone HCl] 2 tab PO BEDTIME 02/19/17 [History] busPIRone [Buspar] 30 mg PO BID 08/14/17 [History] Vortioxetine Hydrobromide [Trintellix] 20 mg PO DAILY 04/02/18 [History] Albuterol Sulfate [Proair Hfa] 1 - 2 puff INH ASDIRECTED PRN 07/22/18 [History] Diclofenac Sodium [Voltaren 1% Gel] 1 applic TOP ASDIRECTED PRN 07/22/18 [History] Fluticasone Propionate [Flonase Allergy Relief] 1 spray NASBOTH DAILY 07/22/18 [History] Fluticasone Propionate [Flovent HFA] 2 puff INH BID PRN 07/22/18 [History] Lidocaine/Prilocaine [Lidocaine-Prilocaine Cream] 1 applic TOP ASDIRECTED PRN 07/22/18 [History] Montelukast Sodium 10 mg PO BEDTIME 07/22/18 [History] estradioL [Estrace] 2 mg PO DAILY 07/22/18 [History] Meclizine [Antivert] 12.5 mg PO TID #30 tab 03/19/19 [Rx] Phentermine HCl 37.5 mg PO DAILY 03/19/19 [History] Metaxalone [Metaxall] 800 mg PO BID PRN 11/16/19 [History] QUEtiapine Fumarate [Seroquel] 100 mg PO BEDTIME 11/16/19 [History] dexAMETHasone [Dexamethasone] 6 mg PO DAILY 8 Days #8 tablet 11/18/19 [Rx] Promethazine/Phenyleph/Codeine [Jmyfjevthtvn-QU-Fryngdy Syrup] 5 ml PO Q4HR PRN 11/30/19 [History] Past Medical History - Past Health History Medical/Surgical History: Denies Medical/Surgical History HEENT History: Reports: Allergic Rhinitis, Impaired Vision, Other (See Below) Other HEENT History: wears glasses/contacts Cardiovascular History: Reports: None Respiratory History: Reports: Bronchitis, Recurrent Gastrointestinal History: Reports: GERD, Other (See Below) Other Gastrointestinal History: hx C-diff in 2014, h/o gastric ulcer Genitourinary History: Reports: Renal Calculus CRUSHER TENDER History: Reports: Endometriosis, Other CRUSHER TENDER History: vaginal Musculoskeletal History: Reports: Arthritis, Back Pain, Chronic, Other (See Below) Other Musculoskeletal History: DDD, Chronic pain syndrome, pain stimulator Neurological History: Reports: Migraines, Vertigo Psychiatric History: Reports: Anxiety, Depression Other Psychiatric History: insomnia Endocrine/Metabolic History: Reports: Obesity/BMI 30+ Hematologic History: Reports: None Immunologic History: Reports: None Oncologic (Cancer) History: Reports: None Dermatologic History: Reports: None - Infectious Disease History Infectious Disease History: Reports: C-Difficile, Chicken Pox - Past Surgical History Head Surgeries/Procedures: Reports: None HEENT Surgical History: Reports: Naso-Sinus Surgery, Oral Surgery Cardiovascular Surgical History: Reports: None Respiratory Surgical History: Reports: None GI Surgical History: Reports: Appendectomy, Cholecystectomy, Colonoscopy Female Surgical History: Reports: Hysterectomy, Other (See Below) Other Female Surgeries/Procedures: laparotomy for ruptured ovarian cyst Endocrine Surgical History: Reports: None Neurological Surgical History: Reports: None Musculoskeletal Surgical History: Reports: Other (See Below) Other Musculoskeletal Surgeries/Procedures:: R foot peroneus longus tendon repair. back surgeries Oncologic Surgical History: Reports: None Dermatological Surgical History: Reports: None Social & Family History - Family History Family Medical History: Noncontributory - Caffeine Use Caffeine Use: Reports: Coffee - Recreational Drug Use Recreational Drug Use: No ED ROS GENERAL - Review of Systems Review Of Systems: Comprehensive ROS is negative, except as noted in HPI. ED EXAM, GENERAL - Physical Exam Exam: See Below (See dictation) Course - Vital Signs Last Recorded V/S: Last Vital Signs Temp 96.9 F 11/30/19 15:07 Pulse 105 H 11/30/19 15:07 Resp 18 11/30/19 15:07 BP 120/83 11/30/19 15:07 Pulse Ox 96 11/30/19 15:07 - Orders/Labs/Meds Orders: Active Orders 24 hr Category Date Time Status EKG Documentation Completion [RC] STAT Care 11/30/19 15:25 Active Labs: Laboratory Tests 11/30/19 11/30/19 11/30/19 Range/Units 15:52 15:52 15:52 WBC 7.63 (4.0-11.0) K/uL RBC 3.74 L (4.30-5.90) M/uL Hgb 12.5 (12.0-16.0) g/dL Hct 36.0 (36.0-46.0) % MCV 96.3 (80.0-98.0) fL MCH 33.4 H (27.0-32.0) pg MCHC 34.7 (31.0-37.0) g/dL RDW Std Deviation 42.5 (28.0-62.0) fl RDW Coeff of Anai 12 (11.0-15.0) % Plt Count 147 L (150-400) K/uL MPV 10.20 (7.40-12.00) fL Neut % (Auto) 63.9 (48.0-80.0) % Lymph % (Auto) 26.5 (16.0-40.0) % [place] % (Auto) 8.5 (0.0-15.0) % Eos % (Auto) 1.0 (0.0-7.0) % Baso % (Auto) 0.1 (0.0-1.5) % Neut # (Auto) 4.9 (1.4-5.7) K/uL Lymph # (Auto) 2.0 (0.6-2.4) K/uL [place] # (Auto) 0.7 (0.0-0.8) K/uL Eos # (Auto) 0.1 (0.0-0.7) K/uL Baso # (Auto) 0.0 (0.0-0.1) K/uL Nucleated RBC % 0.0 /100WBC Nucleated RBCs # 0 K/uL Lactate 0.8 (0.20-2.00) mmol/L Sodium 142 (136-145) mmol/L Potassium 3.7 (3.5-5.1) mmol/L Chloride 107 (98-107) mmol/L Carbon Dioxide 27.0 (21.0-32.0) mmol/L BUN 11 (7.0-18.0) mg/dL Creatinine 0.8 (0.6-1.0) mg/dL Est Cr Clr Drug Dosing 99.25 mL/min Estimated GFR (MDRD) > 60.0 ml/min Glucose 99 (74-106) mg/dL Calcium 8.5 (8.5-10.1) mg/dL Total Bilirubin 0.2 (0.2-1.0) mg/dL AST 38 H (15-37) IU/L ALT 77 H (14-63) IU/L Alkaline Phosphatase 86 (46-116) U/L Troponin I < 0.050 (0.000-0.056) ng/mL Total Protein 6.3 L (6.4-8.2) g/dL Albumin 3.5 (3.4-5.0) g/dL Globulin 2.8 (2.6-4.0) g/dL Albumin/Globulin Ratio 1.2 (0.9-1.6) TSH 3rd Generation 0.73 (0.36-3.74) uIU/mL Urine Color Urine Appearance Urine pH (5.0-8.0) Ur Specific [place] (1.001-1.035) Urine Protein (NEGATIVE) mg/dL Urine Glucose (UA) (NEGATIVE) mg/dL Urine Ketones (NEGATIVE) mg/dL Urine Occult Blood (NEGATIVE) Urine Nitrite (NEGATIVE) Urine Bilirubin (NEGATIVE) Urine Urobilinogen (<2.0) EU/dL Ur Leukocyte Esterase (NEGATIVE) Urine HCG, Qual (NEGATIVE) 11/30/19 11/30/19 Range/Units 15:59 15:59 WBC (4.0-11.0) K/uL RBC (4.30-5.90) M/uL Hgb (12.0-16.0) g/dL Hct (36.0-46.0) % MCV (80.0-98.0) fL MCH (27.0-32.0) pg MCHC (31.0-37.0) g/dL RDW Std Deviation (28.0-62.0) fl RDW Coeff of Anai (11.0-15.0) % Plt Count (150-400) K/uL MPV (7.40-12.00) fL Neut % (Auto) (48.0-80.0) % Lymph % (Auto) (16.0-40.0) % [place] % (Auto) (0.0-15.0) % Eos % (Auto) (0.0-7.0) % Baso % (Auto) (0.0-1.5) % Neut # (Auto) (1.4-5.7) K/uL Lymph # (Auto) (0.6-2.4) K/uL [place] # (Auto) (0.0-0.8) K/uL Eos # (Auto) (0.0-0.7) K/uL Baso # (Auto) (0.0-0.1) K/uL Nucleated RBC % /100WBC Nucleated RBCs # K/uL Lactate (0.20-2.00) mmol/L Sodium (136-145) mmol/L Potassium (3.5-5.1) mmol/L Chloride (98-107) mmol/L Carbon Dioxide (21.0-32.0) mmol/L BUN (7.0-18.0) mg/dL Creatinine (0.6-1.0) mg/dL Est Cr Clr Drug Dosing mL/min Estimated GFR (MDRD) ml/min Glucose (74-106) mg/dL Calcium (8.5-10.1) mg/dL Total Bilirubin (0.2-1.0) mg/dL AST (15-37) IU/L ALT (14-63) IU/L Alkaline Phosphatase (46-116) U/L Troponin I (0.000-0.056) ng/mL Total Protein (6.4-8.2) g/dL Albumin (3.4-5.0) g/dL Globulin (2.6-4.0) g/dL Albumin/Globulin Ratio (0.9-1.6) TSH 3rd Generation (0.36-3.74) uIU/mL Urine Color YELLOW Urine Appearance CLEAR Urine pH 8.5 H (5.0-8.0) Ur Specific [place] 1.015 (1.001-1.035) Urine Protein NEGATIVE (NEGATIVE) mg/dL Urine Glucose (UA) NEGATIVE (NEGATIVE) mg/dL Urine Ketones NEGATIVE (NEGATIVE) mg/dL Urine Occult Blood NEGATIVE (NEGATIVE) Urine Nitrite NEGATIVE (NEGATIVE) Urine Bilirubin NEGATIVE (NEGATIVE) Urine Urobilinogen 0.2 (<2.0) EU/dL Ur Leukocyte Esterase NEGATIVE (NEGATIVE) Urine HCG, Qual NEGATIVE (NEGATIVE) Meds: Medications Discontinued Medications Generic Name Dose Route Start Last Admin Trade Name Freq PRN Reason Stop Dose Admin Ketorolac Tromethamine 30 mg 11/30/19 16:51 11/30/19 16:56 Toradol IVPUSH 11/30/19 16:52 30 mg ONETIME ONE Administration Ondansetron HCl 4 mg 11/30/19 15:25 11/30/19 15:54 Zofran IVPUSH 11/30/19 15:26 4 mg ONETIME ONE Administration Departure - Departure Time of Disposition: 18:07 Disposition: Home, Self-Care 01 Clinical Impression: COVID-19 Constipation Qualifiers: Constipation type: unspecified constipation type Qualified Code(s): K59.00 - Constipation, unspecified - Discharge Information Instructions: Constipation, Adult, [id number], COVID-19 Frequently Asked Questions Referrals: Colin Rangel MD [Primary Care Provider] - Forms: ED Department Discharge Additional Instructions: The following information is given to patients seen in the emergency department who are being discharged to home. This information is to outline your options for follow-up care. We provide all patients seen in our emergency department with a follow-up referral. The need for follow-up, as well as the timing and circumstances, are variable depending upon the specifics of your emergency department visit. If you don't have a primary care physician on staff, we will provide you with a referral. We always advise you to contact your personal physician following an emergency department visit to inform them of the circumstance of the visit and for follow-up with them and/or the need for any referrals to a consulting specialist. The emergency department will also refer you to a specialist when appropriate. This referral assures that you have the opportunity for follow-up care with a specialist. All of these measure are taken in an effort to provide you with optimal care, which includes your follow-up. Under all circumstances we always encourage you to contact your private physician who remains a resource for coordinating your care. When calling for follow-up care, please make the office aware that this follow-up is from your recent emergency room visit. If for any reason you are refused follow-up, please contact the [facility] Emergency Department at and asked to speak to the emergency department charge nurse. [facility] [address] [place] [address] [place] [address] Thank you for choosing the [facility] emergency department in [place] for your medical needs today. It was a pleasure caring for you. Today you were seen in the emergency department for respiratory symptoms. 1. Your lab work, EKG and CT of the chest abdomen and pelvis are within normal limits with the exception of increased stool in the colon. Your vital signs and oxygen saturation are well enough that you were able to monitor your symptoms at home. Continue to monitor for trouble breathing, new confusion or inability to arouse, bluish lips or face or any of the other symptoms we discussed -if this occurs please return to the emergency room. 2. Please add MiraLAX or Colace to your regiment to help facilitate a bowel movement. Continue taking your home medications as directed. You can take NyQuil during the evening to help get a restful night sleep. 3. You may alternate Tylenol and ibuprofen as needed for pain and fever management. 4. The [employer] Hotline phone number , They are open Saturday - Saturday 7am - 7pm. Follow up with your primary care provider for re-evaluation and re-testing after the 2 week quarantine and discuss when you should be seen. Sepsis Event Note (ED) - Evaluation Sepsis Screening Result: No Definite Risk - Focused Exam Vital Signs: Vital Signs Temp Pulse Resp BP Pulse Ox 11/30/19 15:07 96.9 F 105 H 18 120/83 96 - My Orders Last 24 Hours: My Active Orders 11/30/19 15:25 EKG Documentation Completion [RC] STAT - Assessment/Plan Last 24 Hours: My Active Orders 11/30/19 15:25 EKG Documentation Completion [RC] STAT
[2019-11-30 16:32] LABS: BLOOD UREA NITROGEN,BUN 11 mg/dL (7.0-18.0); CHLORIDE,CL 107 mmol/L (98-107); GLUCOSE RANDOM 99 mg/dL (74-106); POTASSIUM,K 3.7 mmol/L (3.5-5.1); SODIUM,NA 142 mmol/L (136-145)
[2019-11-30] MEDS ORDERED: Ketorolac 30 MG/ML SDV IVPUSH ONE (16:51)
--- NOTE | 2019-11-30 17:51 | CT ---
CT chest Technique: Multiple axial sections through the chest were obtained. Study has been performed as a pulmonary angiogram protocol. Intravenous contrast was utilized. Comparison: No prior chest CT is available, prior chest x-ray of 11/16/19. Findings: Pulmonary arteries are well opacified. No filling defects are seen to indicate pulmonary embolism. Thoracic aorta shows no aneurysm. Mediastinum and hilar regions show no adenopathy. No axillary adenopathy is noted. Visualized upper abdominal structures shows no discrete abnormality. Several areas of increased density are noted adjacent to the pleura within both lower lungs. Findings most likely are infectious although follow-up recommended in 2 months to make sure these do not persist. Lungs otherwise are clear. Bone window settings were reviewed which shows no acute osseous finding. Impression: 1. No findings of pulmonary embolism. 2. Parenchymal densities adjacent to the pleura within both lung bases most likely due to viral pneumonia. Follow-up recommended with noncontrast chest CT study in several months to make sure these findings do not persist. Diagnostic code #5 This report was dictated in MDT
--- NOTE | 2019-11-30 17:55 | CT ---
CT abdomen and pelvis Technique: Multiple axial sections were obtained from above the dome of the diaphragm inferiorly through the pubic symphysis. Intravenous contrast was utilized. Reconstructed coronal and sagittal images were reviewed. Comparison: No prior abdominal imaging is available. Findings: Fatty infiltration seen within the liver. Surgical clips are noted from prior cholecystectomy. Spleen shows no focal abnormality. Adrenal glands contain no nodule. Kidneys show symmetric contrast enhancement. Kidneys show no focal cyst or mass. Contrast excretion is seen into both ureters as well as bladder. Pancreas appears within normal limits. Aorta shows no aneurysm. No retroperitoneal adenopathy or mesenteric abnormalities are seen. No pelvic mass or adenopathy is appreciated. Previous hysterectomy is noted. Appendix not seen presumably from prior appendectomy. Mild increased stool seen throughout the colon. Impression: 1. Slight increased stool within the colon. 2. Fatty infiltration within the liver and prior presumed appendectomy. Previous cholecystectomy. 3. Nothing acute is appreciated on CT study of the abdomen and pelvis. Diagnostic code #2 This report was dictated in MDT
[2019-11-30] MEDS ORDERED: Iopamidol 755 Mg/ML 100 ML Bottle IVPUSH ONE (18:26)
[2019-11-30 18:47] VITALS: BP 114/73; PULSE 85
== END 2019-11-30 18:35 | disposition home or self-care (01) ==
LOC: MW.ED 14:54
DX: U07.1 COVID-19 (principal); K59.00 Constipation, unspecified; M19.90 Unspecified osteoarthritis, unspecified site; F41.9 Anxiety disorder, unspecified; F32.9 Major depressive disorder, single episode, unspecified; E66.9 Obesity, unspecified; Z68.26 Body mass index [BMI] 26.0-26.9, adult; Z90.49 Acquired absence of other specified parts of digestive tract; Z90.710 Acquired absence of both cervix and uterus; Z88.0 Allergy status to penicillin; Z91.09 Other allergy status, other than to drugs and biological substances; Z79.899 Other long term (current) drug therapy
CPT/HCPCS: 36415; 71275; 74177; 80053; 81003; 81025; 83605; 84443; 84484; 85025; 93005; 96374; 96375; 99285; J1885; J2405; Q9967; 99284

== ENCOUNTER 2020-07-07 13:02 | Emergency (ER) | payer BC ==
--- NOTE | 2020-07-07 13:10 | EDM.PDOC ---
ED HPI GENERAL MEDICAL PROBLEM - General Chief Complaint: Headache Stated Complaint: HEADACHES Time Seen by Provider: 07/07/20 13:09 Source of Information: Reports: Patient History Limitations: Reports: No Limitations - History of Present Illness INITIAL COMMENTS - FREE TEXT/NARRATIVE: HISTORY AND PHYSICAL: History of present illness: The patient is a 45-year-old female with a history of migraines who presents to the emergency room with complaints of a really bad headache that causes blurred vision. She also has complaints of low blood pressure stating a systolic of 82. She is positive for photophobia, phonophobia, dizziness and states that when she comes in from the outside she feels off balance and has "light flashes". She has increased fatigue for over one week. She denies nausea this time after receiving Michael and Dr. Daniel's office. Patient states that she saw Dr. Daniel on Saturday and had lab work done, and EKG and was given Toradol and some other medication for the headache. Dr. Daniel also changed her migraine medication from Imatrex to Zolmitriptan. She states the Zolmitriptan takes care of the COON but it does not last ling. Patient states this is not like her normal migraine. She also states she had COVID in the past with a COVID headache and is nothing like that either. Patient denies any fever, chills, syncope or near syncope. Denies any chest pain, back pain, shortness of breath or cough. Denies any abdominal pain, diarrhea, constipation or dysuria. Has not noted any blood in urine or stool. In the emergency room the patient is hemodynamically stable with a blood pressure of 98/72 and a pulse of 84. She is afebrile with a temperature of 97.0. Review of systems: As per history of present illness and below otherwise all systems reviewed and negative. Past medical history: As per history of present illness and as reviewed below otherwise noncontributory. Surgical history: As per history of present illness and as reviewed below otherwise noncontributory. Social history: See social history for further information Family history: As per history of present illness and as reviewed below otherwise noncontribut ory. Physical exam: General: Well developed and well nourished. Alert and orientated x 3. Nontoxic in appearance and in no acute distress. Vital signs are stable and have been reviewed by me. Nursing notes were reviewed. HEENT: Atraumatic, normocephalic, pupils equal and reactive bilaterally, negative for conjunctival pallor or scleral icterus, mucous membranes moist, TMs normal bilaterally, throat clear, neck supple, nontender, trachea midline. No drooling or trismus noted. No meningeal signs. No hot potato voice noted. Lungs: Clear to auscultation bilaterally. No wheezes, rales, or rhonchi. Chest nontender. Normal work of breathing, no accessory muscles used. Heart: S1S2, regular rate and rhythm without overt murmur, gallops, or rubs. No JVD. No peripheral edema Abdomen: Soft, nondistended, nontender. Normoactive bowel sounds. Negative for masses or costovertebral tenderness. Skin: Intact, warm, dry. No lesions or rashes noted. Hematologic: No petechiae or purpra. Mucosa appropriate color and normal nail bed color and refill. Extremities: Atraumatic, moves all extremities per self without difficulty or deficits, negative for cords or calf pain. Neurovascular unremarkable. Neuro: Awake, alert, oriented. Cranial nerves II through XII unremarkable. Cerebellum unremarkable. Motor and sensory unremarkable throughout. Exam nonfocal. Psychiatric: Mood and affect are appropriate. Normal thought process. Answering questions appropriately. Notes: *This patient was seen and evaluated during the 2019 SARS-CoV-2 novel coronavirus pandemic period. Community viral transmission is ongoing at time of this encounter and the emergency department is operating under pandemic response procedures. After examination and discussion the patient is agreeable to lab work, a CT of the head, and IV medications. The patient is feeling much better post medications. She states her headache is now just a dull ache. The patient CBC and CMP are unremarkable. I will discharge the patient. The patient will need to follow-up with Dr. Rangel regarding her elevated TSH. CBC: WBC 5.67. CMP: Calcium 8.2. TSH 4.72. Head CT Impression: No acute intracranial abnormality. I have talked with the patient about today's findings, in addition to providing specific details for plan of care. Reassessment at the time of disposition demonstrates that the patient is in no acute distress. The patient is stable for discharge, counseling was provided and we discussed in great detail signs and symptoms that would prompt them to return to the Emergency Department. Medication, follow up and supportive care measures were reviewed and discussed. Voices understanding and is agreeable to plan of care. Denies any further questions or concerns at this time. Diagnostics: CBC, CMP, TSH, CT of head Therapeutics: Reglan 10 mg, Benadryl 50 mg, Toradol 30 mg, IV fluids Impression: Migraine headache, elevated TSH level Plan: 1. You were evaluated today on an emergent basis. Your complants of a headache and low blood pressure were evaluated with blood work and a head CT. You were given Reglan, Benadryl, Toradol and an IV fluids. Your headache has subsided and your head CT was negative. You will need to continue to work with your primary care provider in finding a preventative migraine medication and not just an abortive migraine medication. Your TSH level is elevated which could ind icate hypothyroidism and could be the cause of your fatigue. You need to follow-up with your primary care provider for repeat TSH level. Your blood pressure was 112/72 and is stable. Be sure to drink plenty of fluids. Any follow-up appointment you have with your primary care provider. 2. You can alternate Tylenol and ibuprofen as needed for pain and fever management. 3. We encourage you to follow up with your primary care provider and/or recommended specialist in the next few days for re-evaluation and further care/management. 4. If your symptoms should worsen, new symptoms develop or any of the signs and symptoms we discussed should arise please return to the emergency room or call 911 (if needed). Definitive disposition and diagnosis as appropriate pending reevaluation and review of above. head Pain Score (Numeric/FACES): 10 - Related Data Allergies Allergy/AdvReac Type Severity Reaction Status Date / Time Penicillins Allergy Rash Verified 07/07/20 13:47 dermabond Allergy Rash Uncoded 07/07/20 13:47 Home Meds: Home Meds Esomeprazole [NexIUM] 40 mg PO ACBREAKFAST 02/19/17 [History] traZODone HCl [Trazodone HCl] 200 mg PO BEDTIME 02/19/17 [History] busPIRone [Buspar] 30 mg PO BID 08/14/17 [History] Vortioxetine Hydrobromide [Trintellix] 20 mg PO DAILY 04/02/18 [History] Albuterol Sulfate [Proair Hfa] 1 - 2 puff INH ASDIRECTED PRN 07/22/18 [History] Diclofenac Sodium [Voltaren 1% Gel] 1 applic TOP ASDIRECTED PRN 07/22/18 [History] Fluticasone Propionate [Flonase Allergy Relief] 1 spray NASBOTH DAILY PRN 07/22/18 [History] Fluticasone Propionate [Flovent HFA] 2 puff INH BID PRN 07/22/18 [History] Lidocaine/Prilocaine [Lidocaine-Prilocaine Cream] 1 applic TOP TID PRN 07/22/18 [History] Montelukast Sodium 10 mg PO BEDTIME 07/22/18 [History] Meclizine [Antivert] 12.5 mg PO TID #30 tab 03/19/19 [Rx] Phentermine HCl 37.5 mg PO DAILY 03/19/19 [History] Metaxalone [Metaxall] 800 mg PO BID PRN 11/16/19 [History] QUEtiapine Fumarate [Seroquel] 100 mg PO BEDTIME 11/16/19 [History] Promethazine/Phenyleph/Codeine [Jvkzyxosksul-DG-Rkkihhh Syrup] 5 ml PO Q4HR PRN 11/30/19 [History] ClonazePAM [KlonoPIN] 0.5 mg PO BID PRN 07/07/20 [History] DULoxetine [Cymbalta] 30 mg PO BID 07/07/20 [History] SUMAtriptan succinate [Imitrex] 100 mg PO ASDIRECTED PRN 07/07/20 [History] Topiramate 100 mg PO DAILY 07/07/20 [History] Vilazodone HCl [Viibryd] 20 mg PO DAILY 07/07/20 [History] ZOLMitriptan [Zolmitriptan] 5 mg PO DAILY PRN 07/07/20 [History] Zolpidem [Ambien] 10 mg PO BEDTIME PRN 07/07/20 [History] estradioL [Estradiol] 2 mg PO DAILY 07/07/20 [History] traMADol [Ultram] 50 mg PO TID PRN 07/07/20 [History] Past Medical History - Past Health History Medical/Surgical History: Denies Medical/Surgical History HEENT History: Reports: Allergic Rhinitis, Impaired Vision, Other (See Below) Other HEENT History: wears glasses/contacts Cardiovascular History: Reports: None Respiratory History: Reports: Bronchitis, Recurrent Gastrointestinal History: Reports: GERD, Other (See Below) Other Gastrointestinal History: hx C-diff in 2015, h/o gastric ulcer Genitourinary History: Reports: Renal Calculus CLINIC NURSE History: Reports: Endometriosis, Other CLINIC NURSE History: vaginal Musculoskeletal History: Reports: Arthritis, Back Pain, Chronic, Other (See Below) Other Musculoskeletal History: DDD, Chronic pain syndrome, pain stimulator Neurological History: Reports: Migraines, Vertigo Psychiatric History: Reports: Anxiety, Depression Other Psychiatric History: insomnia Endocrine/Metabolic History: Reports: Obesity/BMI 30+ Hematologic History: Reports: None Immunologic History: Reports: None Oncologic (Cancer) History: Reports: None Dermatologic History: Reports: None - Infectious Disease History Infectious Disease History: Reports: C-Difficile, Chicken Pox - Past Surgical History Head Surgeries/Procedures: Reports: None HEENT Surgical History: Reports: Naso-Sinus Surgery, Oral Surgery Cardiovascular Surgical History: Reports: None Respiratory Surgical History: Reports: None GI Surgical History: Reports: Appendectomy, Cholecystectomy, Colonoscopy Female Surgical History: Reports: Hysterectomy, Other (See Below) Other Female Surgeries/Procedures: laparotomy for ruptured ovarian cyst Endocrine Surgical History: Reports: None Neurological Surgical History: Reports: None Musculoskeletal Surgical History: Reports: Other (See Below) Other Musculoskeletal Surgeries/Procedures:: R foot peroneus longus tendon repair. back surgeries Oncologic Surgical History: Reports: None Dermatological Surgical History: Reports: None Social & Family History - Family History Family Medical History: No Pertinent Family History - Caffeine Use Caffeine Use: Reports: Coffee ED ROS GENERAL - Review of Systems Review Of Systems: Comprehensive ROS is negative, except as noted in HPI. - Physical Exam Exam: See Below (See dictation) Course - Vital Signs Last Recorded V/S: Last Vital Signs Temp 97.0 F 07/07/20 13:42 Pulse 64 07/07/20 16:00 Resp 18 07/07/20 16:00 BP 116/78 07/07/20 16:00 Pulse Ox 98 07/07/20 16:00 - Orders/Labs/Meds Orders: Active Orders 24 hr Category Date Time Status Saline Lock Insert [OM.PC] Stat Oth 07/07/20 13:49 Ordered Labs: Laboratory Tests 07/07/20 07/07/20 Range/Units 13:33 13:33 WBC 5.67 (4.0-11.0) K/uL RBC 4.30 (4.30-5.90) M/uL Hgb 14.5 (12.0-16.0) g/dL Hct 40.9 (36.0-46.0) % MCV 95.1 (80.0-98.0) fL MCH 33.7 H (27.0-32.0) pg MCHC 35.5 (31.0-37.0) g/dL RDW Std Deviation 44.0 (28.0-62.0) fl RDW Coeff of Anai 13 (11.0-15.0) % Plt Count 166 (150-400) K/uL MPV 10.70 (7.40-12.00) fL Neut % (Auto) 41.6 L (48.0-80.0) % Lymph % (Auto) 51.5 H (16.0-40.0) % Mills % (Auto) 5.8 (0.0-15.0) % Eos % (Auto) 0.7 (0.0-7.0) % Baso % (Auto) 0.4 (0.0-1.5) % Neut # (Auto) 2.4 (1.4-5.7) K/uL Lymph # (Auto) 2.9 H (0.6-2.4) K/uL Mills # (Auto) 0.3 (0.0-0.8) K/uL Eos # (Auto) 0.0 (0.0-0.7) K/uL Baso # (Auto) 0.0 (0.0-0.1) K/uL Nucleated RBC % 0.0 /100WBC Nucleated RBCs # 0 K/uL Sodium 144 (136-145) mmol/L Potassium 3.5 (3.5-5.1) mmol/L Chloride 107 (98-107) mmol/L Carbon Dioxide 25.6 (21.0-32.0) mmol/L BUN 22 H (7.0-18.0) mg/dL Creatinine 1.0 (0.6-1.0) mg/dL Est Cr Clr Drug Dosing 70.91 mL/min Estimated GFR (MDRD) 59.7 ml/min Glucose 104 (74-106) mg/dL Calcium 8.2 L (8.5-10.1) mg/dL Total Bilirubin 0.3 (0.2-1.0) mg/dL AST 35 (15-37) IU/L ALT 47 (14-63) IU/L Alkaline Phosphatase 84 (46-116) U/L Total Protein 7.3 (6.4-8.2) g/dL Albumin 3.8 (3.4-5.0) g/dL Globulin 3.5 (2.6-4.0) g/dL Albumin/Globulin Ratio 1.1 (0.9-1.6) TSH 3rd Generation 4.72 H (0.36-3.74) uIU/mL Meds: Medications Discontinued Medications Generic Name Dose Route Start Last Admin Trade Name Freq PRN Reason Stop Dose Admin Diphenhydramine HCl 50 mg 07/07/20 13:52 07/07/20 14:05 Diphenhydramine 50 Mg/Ml Sdv IVPUSH 07/07/20 13:53 50 mg ONETIME ONE Administration Sodium Chloride 1,000 mls @ 999 mls/hr 07/07/20 14:36 07/07/20 14:46 Normal Saline IV 07/07/20 15:36 999 mls/hr .BOLUS ONE Administration Ketorolac Tromethamine 30 mg 07/07/20 13:52 07/07/20 14:04 Ketorolac 30 Mg/Ml Sdv IVPUSH 07/07/20 13:53 30 mg ONETIME ONE Administration Metoclopramide HCl 10 mg 07/07/20 13:52 07/07/20 14:05 Metoclopramide 10 Mg/2 Ml Sdv IVPUSH 07/07/20 13:53 10 mg ONETIME ONE Administration Sodium Chloride 10 ml 07/07/20 13:49 07/07/20 14:05 Sodium Chloride 0.9% 10 Ml Syringe FLUSH 10 ml ASDIRECTED PRN Administration Keep Vein Open Sodium Chloride 2.5 ml 07/07/20 13:49 07/07/20 14:05 Sodium Chloride 0.9% 2.5 Ml Syringe FLUSH 2.5 ml ASDIRECTED PRN Administration Keep Vein Open Departure - Departure Time of Disposition: 15:48 Disposition: Home, Self-Care 01 Condition: Good Clinical Impression: Elevated TSH Migraine headache Qualifiers: Migraine type: without aura Status migrainosus presence: without status migrainosus Intractability: not intractable Qualified Code(s): G43.009 - Migraine without aura, not intractable, without status migrainosus - Discharge Information *PRESCRIPTION DRUG MONITORING PROGRAM REVIEWED*: Not Applicable *COPY OF PRESCRIPTION DRUG MONITORING REPORT IN PATIENT MEGHAN: Not Applicable Instructions: Migraine Headache, [id number] Referrals: Colin Rangel MD [Primary Care Provider] - Forms: ED Department Discharge Additional Instructions: The following information is given to patients seen in the emergency department who are being discharged to home. This information is to outline your options for follow-up care. We provide all patients seen in our emergency department with a follow-up referral. The need for follow-up, as well as the timing and circumstances, are variable depending upon the specifics of your emergency department visit. If you don't have a primary care physician on staff, we will provide you with a referral. We always advise you to contact your personal physician following an emergency department visit to inform them of the circumstance of the visit and for follow-up with them and/or the need for any referrals to a consulting specialist. The emergency department will also refer you to a specialist when appropriate. This referral assures that you have the opportunity for follow-up care with a specialist. All of these measure are taken in an effort to provide you with optimal care, which includes your follow-up. Under all circumstances we always encourage you to contact your private physician who remains a resource for coordinating your care. When calling for follow-up care, please make the office aware that this follow-up is from your recent emergency room visit. If for any reason you are refused follow-up, please contact the [facility] Emergency Department at and asked to speak to the emergency department charge nurse. [facility] [address] [place] [id number] [facility] [address] [place] [address] Plan: 1. You were evaluated today on an emergent basis. Your's of shortness of breath and increased blood pressure were evaluated today with lab work, an EKG, a chest x-ray and a COVID-19 swab your calcium was low as well as your magnesium and you were treated accordingly for that. We checked your cardiac labs which were negative. Your chest x-ray was also negative. You do have fluid overload as evidenced by the in your feet, lower legs, and abdomen. You will need to take your hydrochlorothiazide on a daily basis and try to take it at the same time every day. This will decrease your blood pressure slowly and take your fluid. I want you to check your blood pressure daily. You check your blood pressure by sitting for no less than 10 minutes, feet flat on the floor, and your arm must be resting on a flat surface prior to taking your blood pressure. You can take it at different times a day but also record your heart rate. 2. You can alternate Tylenol and ibuprofen as needed for pain and fever ma nagement. 3. We encourage you to follow up with your primary care provider and/or recommended specialist in the next few days for re-evaluation and further care/management. 4. If your symptoms should worsen, new symptoms develop or any of the signs and symptoms we discussed should arise please return to the emergency room or call 911 (if needed). Sepsis Event Note (ED) - Focused Exam Vital Signs: Vital Signs Temp Pulse Resp BP Pulse Ox 07/07/20 16:00 64 18 116/78 98 07/07/20 15:00 65 18 112/77 98 07/07/20 14:30 71 18 112/7 L 98 07/07/20 13:42 97.0 F 84 18 98/72 99 - My Orders Last 24 Hours: My Active Orders 07/07/20 13:49 Saline Lock Insert [OM.PC] Stat - Assessment/Plan Last 24 Hours: My Active Orders 07/07/20 13:49 Saline Lock Insert [OM.PC] Stat
[2020-07-07] MEDS ORDERED: Sodium Chloride 0.9% 2.5 ML Syringe FLUSH PRN (13:49)
[2020-07-07] MEDS ORDERED: Sodium Chloride 0.9% 10 ML Syringe FLUSH PRN (13:49)
[2020-07-07] MEDS ORDERED: diphenhydrAMINE 50 MG/ML SDV IVPUSH ONE (13:52)
[2020-07-07] MEDS ORDERED: Ketorolac 30 MG/ML SDV IVPUSH ONE (13:52)
[2020-07-07] MEDS ORDERED: Metoclopramide 10 MG/2 ML SDV IVPUSH ONE (13:52)
[2020-07-07 14:26] LABS: CARBON DIOXIDE,CO2 25.6 mmol/L (21.0-32.0); POTASSIUM,K 3.5 mmol/L (3.5-5.1)
[2020-07-07] MEDS ORDERED: Sodium Chloride 0.9% 1,000 ML IV ONE (14:36)
--- NOTE | 2020-07-07 15:44 | CT ---
Indication: Headache Technique: CT of the head without contrast. Coronal and sagittal reformats. Bone and soft tissue windows. Comparison: No prior studies available for comparison at this institution. Findings: No acute intracranial hemorrhage or extra-axial collection. No evidence of acute cortical infarction. No mass effect or midline shift. Normal cerebral volume. The ventricles are normal in size, shape and contour. There is normal greenberg and white matter differentiation. The orbital contents are normal. No calvarial fractures. No lytic or sclerotic osseous lesions within the calvarium or skull base. Scalp and other imaged soft tissue structures are normal. Mastoid air cells are clear. Paranasal sinuses are well aerated. There is a left nare piercing Impression: No acute intracranial abnormality. Please note that all CT scans at this facility use dose modulation, iterative reconstruction, and/or weight-based dosing when appropriate to reduce radiation dose to as low as reasonably achievable. Dictated by Adria Vilchis MD @ 07/07/2020 3:42:[address] Adria Vilchis @ Jul 07 2020 3:42PM
[2020-07-07 16:03] VITALS: BP 116/78; PULSE 64
== END 2020-07-07 16:16 | disposition home or self-care (01) ==
LOC: MW.ED 13:02
DX: G43.009 Migraine without aura, not intractable, without status migrainosus (principal); R94.6 Abnormal results of thyroid function studies; K21.9 Gastro-esophageal reflux disease without esophagitis; E66.9 Obesity, unspecified; Z68.27 Body mass index [BMI] 27.0-27.9, adult
CPT/HCPCS: 70450; 80053; 84443; 85025; 96374; 96375; 99284; J1200; J1885; J2765; J7030

== ENCOUNTER 2020-10-14 22:21 | Emergency (ER) | payer BC ==
[2020-10-14] MEDS ORDERED: Ketorolac 15 MG/ML SDV IM ONE (22:35)
[2020-10-14 22:52] VITALS: BP 116/63; PULSE 87
--- NOTE | 2020-10-14 23:35 | CR ---
Indication: Horse stepped on foot Technique: Three views Comparison: Left foot 08/17/2017 Findings: Bones: Alignment is normal. No fractures or bone lesions. Joint spaces: Unremarkable. Soft tissues: Dorsal soft tissue swelling at the level of the forefoot. Some midfoot dystrophic calcification dorsally although similar to the 2018 exam. Dictated by Leroy Patricia MD @ 10/14/2020 11:34:[address] Leroy Patricia @ Oct 14 2020 11:34PM
--- NOTE | 2020-10-15 00:27 | EDM.PDOC ---
ED HPI GENERAL MEDICAL PROBLEM - General Chief Complaint: Lower Extremity Injury/Pain Stated Complaint: HORSE STEPPED ON LT FOOT Time Seen by Provider: 10/14/20 22:34 - History of Present Illness INITIAL COMMENTS - FREE TEXT/NARRATIVE: CHIEF COMPLAINT(S): Foot injury HISTORY OF PRESENT ILLNESS: This is a 45-year-old woman without any significant past medical history who comes to the emergency department with a chief complain t of foot injury. The patient states that approximately 4 to 5 hours prior to arrival she was working with a horse when the horse stepped onto her left foot. She states that she immediately starting feeling pain in her left foot. She denies any numbness, tingling, or weakness but states that there is some swelling in this area. She describes the pain as aching and rated 9 out of 10. She has not yet taken any pain medication but did eat dinner prior to arrival. She states that it is difficult for her to put any weight on it. She denies any radiation of this pain or other injury. She states that the pain is exacerbated by stepping on it. There are no relieving factors other than not putting any pressure on it. REVIEW OF SYSTEMS: Constitutional: Denies fever, chills. Eyes: Denies eye pain Ears, Nose, Mouth, & Throat: Denies earache Cardiovascular: Denies chest pain Respiratory: Denies shortness of breath Gastrointestinal: Denies Nausea, vomiting, diarrhea, hematochezia. Genitourinary: Denies hematuria Skin:Denies a rash MSK: Positive for left foot pain Neurological: Denies blurred vision Psychiatric: Denies depression PAST MEDICAL HISTORY: As per history of present illness and as reviewed below otherwise noncontributory. SURGICAL HISTORY: As per history of present illness and as reviewed below otherwise noncontributory. SOCIAL HISTORY: As per history of present illness and as reviewed below otherwise noncontributory. FAMILY HISTORY: As per history of present illness and as reviewed below otherwise noncontributory. EXAMINATION OF ORGAN SYSTEMS/BODY AREAS: Constitutional: Blood pressure is 116/63, heart rate 87, respiratory rate 18 with an oxygen saturation 97% on room air. Temperature 36.4 General: Overall well-appearing woman who is in no acute distress Psychiatric: Appropriate mood and affect. Eyes: No scleral icterus or conjunctival erythema ENMT: Moist mucous membranes. No pharyngeal erythema Cardiovascular: Regular, rate, and rhythm. No gallops, murmurs, or rubs. Bilateral upper extremity and lower extremity pulses symmetric and intact. Respiratory: Lungs clear to auscultation bilaterally. No wheezes, rales, or rhonchi. Musculoskeletal: Patient has full range of motion at the left ankle. The patient can move all her toes on her left foot. There is tenderness to palpation along the midfoot. No obvious deformity, bruising or swelling. No medial or lateral malleoli or tenderness. Skin: No lesions or abrasions. Neurological: Alert, GCS 15 distal sensation is intact of the left lower extremity MEDICAL DECISION MAKING AND COURSE IN THE ED WITH INTERPRETATION/REVIEW OF DIAGNOSTIC STUDIES: This is a 45-year-old woman without any significant past medical history who comes to the emergency department with left foot pain after a horse stepped on her left foot with midfoot pain. At this time we will obtain a left foot x-ray for reevaluation of any fracture or dislocation. We will provide the patient with Toradol IM for pain relief. I do not believe any other labs or imaging are indicated. The radiological images were viewed by myself along with reading the report from the radiologist. Left foot x-ray does not reveal any fracture or dislocation. There is dorsal soft tissue swelling at the level of the forefoot. After imaging we did trial ambulation with the patient. She was unable to bear weight. Given the location of the pain there is suspicion for possible ligamentous injury in the Lisfr[place] area. We will place the patient in a posterior mold splint and provide the patient with crutches and have evaluation by orthopedics. They are to take Tylenol Motrin for pain relief. She did express understanding was amenable to discharge and had no further questions DISPOSITION: The patient was discharged home in stable condition. The patient will follow up with orthopedics in 5 days CONDITION: Fair PROCEDURES: None FINAL IMPRESSION(S)/DIAGNOSES: 1. Acute left foot sprain DME: Crutches Indication: Left foot sprain Benefit: Immobilization/ambulation Duration: until follow-up with orthopedics Mook Stein M.D. left foot Pain Score (Numeric/FACES): 9 - Related Data Allergies Allergy/AdvReac Type Severity Reaction Status Date / Time Penicillins Allergy Rash Verified 10/14/20 22:44 dermabond Allergy Rash Uncoded 10/14/20 22:44 Home Meds: Home Meds Esomeprazole [NexIUM] 40 mg PO ACBREAKFAST 02/19/17 [History] traZODone HCl [Trazodone HCl] 200 mg PO BEDTIME 02/19/17 [History] busPIRone [Buspar] 30 mg PO BID 08/14/17 [History] Albuterol Sulfate [Proair Hfa] 1 - 2 puff INH ASDIRECTED PRN 07/22/18 [History] Fluticasone Propionate [Flonase Allergy Relief] 1 spray NASBOTH DAILY PRN 07/22/18 [History] Montelukast Sodium 10 mg PO BEDTIME 07/22/18 [History] Phentermine HCl 37.5 mg PO DAILY 03/19/19 [History] QUEtiapine Fumarate [Seroquel] 100 mg PO BEDTIME 11/16/19 [History] ClonazePAM [KlonoPIN] 0.5 mg PO BID PRN 07/07/20 [History] SUMAtriptan succinate [Imitrex] 100 mg PO ASDIRECTED PRN 07/07/20 [History] Topiramate 200 mg PO DAILY 07/07/20 [History] Vilazodone HCl [Viibryd] 40 mg PO DAILY 07/07/20 [History] Zolpidem [Ambien] 10 mg PO BEDTIME PRN 07/07/20 [History] estradioL [Estradiol] 2 mg PO DAILY 07/07/20 [History] traMADol [Ultram] 100 mg PO BID PRN 07/07/20 [History] Cholecalciferol (Vitamin D3) [Vitamin D3] 600 mg PO DAILY 10/14/20 [History] Pyridoxine HCl (Vitamin B6) [Vitamin B-6] 100 mg PO DAILY 10/14/20 [History] Ubrogepant [Ubrelvy] 50 mg PO ASDIRECTED PRN 10/14/20 [History] Past Medical History - Past Health History Medical/Surgical History: Denies Medical/Surgical History HEENT History: Reports: Allergic Rhinitis, Impaired Vision, Other (See Below) Other HEENT History: wears glasses/contacts Cardiovascular History: Reports: None Respiratory History: Reports: Bronchitis, Recurrent Gastrointestinal History: Reports: GERD, Other (See Below) Other Gastrointestinal History: hx C-diff in 2014, h/o gastric ulcer Genitourinary History: Reports: Renal Calculus SMOOTH PLATER History: Reports: Endometriosis, Other SMOOTH PLATER History: vaginal Musculoskeletal History: Reports: Arthritis, Back Pain, Chronic, Other (See Below) Other Musculoskeletal History: DDD, Chronic pain syndrome, pain stimulator Neurological History: Reports: Migraines, Vertigo Psychiatric History: Reports: Anxiety, Depression Other Psychiatric History: insomnia Endocrine/Metabolic History: Reports: Obesity/BMI 30+ Hematologic History: Reports: None Immunologic History: Reports: None Oncologic (Cancer) History: Reports: None Dermatologic History: Reports: None - Infectious Disease History Infectious Disease History: Reports: C-Difficile, Chicken Pox - Past Surgical History Head Surgeries/Procedures: Reports: None HEENT Surgical History: Reports: Naso-Sinus Surgery, Oral Surgery Cardiovascular Surgical History: Reports: None Respiratory Surgical History: Reports: None GI Surgical History: Reports: Appendectomy, Cholecystectomy, Colonoscopy Female Surgical History: Reports: Hysterectomy, Other (See Below) Other Female Surgeries/Procedures: laparotomy for ruptured ovarian cyst Endocrine Surgical History: Reports: None Neurological Surgical History: Reports: None Musculoskeletal Surgical History: Reports: Other (See Below) Other Musculoskeletal Surgeries/Procedures:: R foot peroneus longus tendon repair. back surgeries Oncologic Surgical History: Reports: None Dermatological Surgical History: Reports: None Social & Family History - Family History Family Medical History: No Pertinent Family History - Caffeine Use Caffeine Use: Reports: Coffee Review of Systems - Review of Systems Review Of Systems: See Below ED EXAM, GENERAL - Physical Exam Exam: See Below Course - Vital Signs Last Recorded V/S: Last Vital Signs Temp 36.4 C 10/14/20 22:40 Pulse 87 10/14/20 22:40 Resp 18 10/14/20 22:40 BP 116/63 10/14/20 22:40 Pulse Ox 97 10/14/20 22:40 - Orders/Labs/Meds Meds: Medications Discontinued Medications Generic Name Dose Route Start Last Admin Trade Name Hunterq PRN Reason Stop Dose Admin Ketorolac Tromethamine 15 mg 10/14/20 22:35 10/14/20 23:11 Ketorolac 15 Mg/Ml Sdv IM 10/14/20 22:36 15 mg ONETIME ONE Administration Departure - Departure Time of Disposition: 00:26 Disposition: Home, Self-Care 01 Condition: Fair Clinical Impression: Foot sprain - Discharge Information *PRESCRIPTION DRUG MONITORING PROGRAM REVIEWED*: No *COPY OF PRESCRIPTION DRUG MONITORING REPORT IN PATIENT MEGHAN: No Instructions: Foot Sprain Referrals: Colin Rangel MD [Primary Care Provider] - Forms: ED Department Discharge Additional Instructions: You were evaluated today on an emergent basis. At this time your imaging did not reveal any fracture. However given that you are unable to put any weight on it I did place you in a splint. Please keep the splint on and follow-up with orthopedics in 5 to 7 days. It is important that you keep the area elevated and use Tylenol Motrin for pain relief. Return if you have any new or worsening symptoms. Please use: Tylenol 500-1000mg every 6 hours (DO NOT TAKE MORE THAN 4000mg in 1 day) Ibuprofen 400mg every 6 hours (Take with food as it can cause ulcers, GI upset) Example schedule: 8:00 AM (Tylenol 500-1000mg) 11:00 AM (Ibuprofen 400mg) 2:00 PM (Tylenol 500-1000mg) 5:00 PM (Ibuprofen 400mg) Ice the area 20 minutes 4 times per day [facility] [address], [address] [place] [address] The patient is informed of any results of their evaluation and diagnostic workup and all questions are answered. They are given discharge instructions and return precautions. The patient is stable for discharge. The patient states they understand and agree with the plan and that they will return if their symptoms get worse or if they have any new concerns. The following information is given to patients seen in the emergency department who are being discharged to home. This information is to outline your options for follow-up care. We provide all patients seen in our emergency department with a follow-up referral. The need for follow-up, as well as the timing and circumstances, are variable depending upon the specifics of your emergency department visit. If you don't have a primary care physician on staff, we will provide you with a referral. We always advise you to contact your personal physician following an emergency department visit to inform them of the circumstance of the visit and for follow-up with them and/or the need for any referrals to a consulting specialist. The emergency department will also refer you to a specialist when appropriate. This referral assures that you have the opportunity for follow-up care with a specialist. All of these measure are taken in an effort to provide you with optimal care, which includes your follow-up. Under all circumstances we always encourage you to contact your private physician who remains a resource for coordinating your care. When calling for follow-up care, please make the office aware that this follow-up is from your recent emergency room visit. If for any reason you are refused follow-up, please contact the [facility] Emergency Department at and asked to speak to the emergency department charge nurse. Sepsis Event Note (ED) - Evaluation Sepsis Screening Result: No Definite Risk
== END 2020-10-15 01:04 | disposition home or self-care (01) ==
LOC: MW.ED 22:21
DX: S93.602A Unspecified sprain of left foot, initial encounter (principal); K21.9 Gastro-esophageal reflux disease without esophagitis; E66.9 Obesity, unspecified; Z68.28 Body mass index [BMI] 28.0-28.9, adult; Z79.899 Other long term (current) drug therapy; Z88.0 Allergy status to penicillin; Z91.048 Other nonmedicinal substance allergy status; W55.19XA Other contact with horse, initial encounter
CPT/HCPCS: 29515; 73630; 96372; 99283; J1885